=== PATIENT | female | born 1955 | race Caucasian/White ===

== ENCOUNTER 2019-12-07 11:18 | Outpatient (CLI) | payer MEDICARE, SELFPAY ==
--- NOTE | 2019-12-07 11:24 | XRR_ITS ---
PROCEDURE INFORMATION: Exam: XR Right Knee Exam date and time: 12/07/2019 11:25 AM Age: 64 years old Clinical indication: Pain in right knee TECHNIQUE: Imaging protocol: XR Right knee. Views: 3 views. COMPARISON: No relevant prior studies available. FINDINGS: Bones/joints: No fracture. No dislocation. There is narrowing of the patellofemoral joint space with tiny osteophytes projecting off the articular margins of the patella. Small joint effusion. Soft tissues: No acute soft tissue abnormality. XR/XR knee RT 3V* [id number] IMPRESSION: 1. Mild osteoarthritis. 2. Mild joint effusion.
== END 2019-12-07 11:19 | disposition home or self-care (01) ==
LOC: RADWPI 11:23
PROVIDERS: Family Provider Family Medicine; PCP Family Medicine; Visit Provider Family Medicine
DX: M17.11 Unilateral primary osteoarthritis, right knee (principal); M25.461 Effusion, right knee
CPT/HCPCS: 73562

== ENCOUNTER → 2020-03-01 13:23 | Outpatient (BNVA) | payer MEDICARE, SELFPAY | PROVIDERS: Family Provider Family Medicine; PCP Family Medicine; Referring Provider Family Medicine; Visit Provider Specialist | DX: M25.561 Pain in right knee (principal) | CPT/HCPCS: 73560; 73565 ==

== ENCOUNTER 2020-03-19 11:20 | Outpatient (CLI) | payer MEDICARE, SELFPAY ==
--- NOTE | 2020-03-19 11:26 | MM_ITS ---
WS: [id number] BILATERAL SCREENING DIGITAL MAMMOGRAM WITH CAD HISTORY: Screening exam. COMPARISON: 02/10/2019, 02/09/2018, 01/28/2017 Bilateral CC and MLO views submitted. Computer aided detection analyzed. Breast composition: The breasts are heterogeneously dense, which may obscure small masses. No suspici ous masses, microcalcifications or architectural distortion. Dense fibroglandular tissue. New asymmet ry in the lateral mid RIGHT breast measures 8 mm. Not definitely seen on the CC projection due to the dense fibroglandular tissue. MM/[place] [id number] IMPRESSION: BI-RADS: 0-Incomplete: Need additional imaging evaluation FOLLOW UP: Need Additional Imaging RIGHT breast: Spot compression views (CC ). True ML. Ultrasound to follow if ab normality persists.
== END 2020-03-19 11:21 | disposition home or self-care (01) ==
LOC: RADSHAW 11:20
PROVIDERS: PCP Family Medicine; Visit Provider Family Medicine
DX: Z12.31 Encounter for screening mammogram for malignant neoplasm of breast (principal); N64.89 Other specified disorders of breast
CPT/HCPCS: 77067

== ENCOUNTER 2020-03-19 13:32 | Outpatient (CLI) | payer MEDICARE, SELFPAY ==
--- NOTE | 2020-03-19 16:45 | MR_ITS ---
WS: [id number] MRI RIGHT KNEE HISTORY: M25.561 Pain in right knee COMPARISON: 12/07/2019 Anterior cruciate ligament: Normal course of the ACL. There is increased signal and thinning of the p roximal ligament. Posterior cruciate ligament: Intact. Medial collateral ligament: Increased T2 fluid signal on the osseous portion of the ligament. Partial extrusion of the meniscus. No ligament tear. Posterior lateral corner structures: Intact. Medial menisci: Abnormal shape of the posterior horn. Free edge is blunted and there is partial extru lizbet of the meniscus from the joint line. Lateral meniscus: Intact. Normal signal, size and shape. Extensor mechanism: Distal quadriceps tendon and patellar tendons are intact. Fluid and soft tissue: Moderate to large amount of suprapatellar joint fluid. Fluid extends around th e knee joint. Small Montemayor's cyst extends over length of 4 cm. Mixed signal within the dependent porti on of the Montemayor's cyst suggesting probably some loose bodies. Osseous and articular structures: Patellofemoral compartment: Moderate narrowing of patellofemoral joint, greatest involving the latera l facet joint with complete loss of cartilage. Small amount of subchondral edema in the lateral parra lar and femoral condyle. Medial compartment: Moderate narrowing of the medial compartment. Complete loss of cartilage. There a re small marginal osteophytes and partial extrusion of the meniscus from the joint line. Moderate dereje unt of marrow edema in the medial femoral condyle. Lateral compartment: Mild narrowing of the lateral compartment. Thinning of the cartilage. No marrow edema. MR/MR knee RT wo con* [id number] IMPRESSION: 1. Moderate internal derangement medial compartment. Loss of cartilage with ex truded meniscus and marrow edema. Findings consistent with at least moderate os teoarthritis. 2. Moderate patellofemoral joint space arthritis, greatest involving the later al patellofemoral joint. Subchondral edema in the lateral patella and femoral c ondyle. 3. Moderate to large suprapatellar joint effusion and small Montemayor's cyst. 4. Abnormal posterior medial meniscus consistent with meniscal tear and joint extrusion.
== END 2020-03-19 13:33 | disposition home or self-care (01) ==
LOC: RADSHAW 13:34
PROVIDERS: PCP Family Medicine; Visit Provider Specialist
DX: M25.561 Pain in right knee (principal); M23.8X1 Other internal derangements of right knee; M25.461 Effusion, right knee; M71.21 Synovial cyst of popliteal space [Baker], right knee; R60.0 Localized edema
CPT/HCPCS: 73721

== ENCOUNTER 2020-04-02 12:34 | Outpatient (CLI) | payer MEDICARE, SELFPAY ==
--- NOTE | 2020-04-02 13:02 | US_ITS ---
WS: [id number] ADDITIONAL VIEWS RIGHT BREAST RIGHT breast ultrasound, limited HISTORY: ABNORMAL MAMMOGRAM COMPARISON: 03/19/2020, 02/10/2019 and 02/09/2018 Compression views right CC and MLO projection. True ML also submitted. Dense fibroglandular tissue in the anterior breast. Recently described possible nodule in the lateral RIGHT breast is not reidentified. There is no mass or distortion. RIGHT breast ultrasound, limited. Ultrasound directed to the lateral RIGHT breast. There is very dense fibroglandular tissue. No mass i dentified. No distortion. US/US breast RT limited* [id number] IMPRESSION: BI-RADS: 2-Benign FOLLOW-UP: 1 Year Follow-up Return to annual screening mammography. No persistent mass in the lateral RIGHT breast.
== END 2020-04-02 12:35 | disposition home or self-care (01) ==
LOC: RADSHAW 12:36
PROVIDERS: PCP Family Medicine; Visit Provider Family Medicine
DX: R92.8 Other abnormal and inconclusive findings on diagnostic imaging of breast (principal)
CPT/HCPCS: 76642; 77065

== ENCOUNTER → 2020-04-12 13:29 | Outpatient (BNVA) | payer MEDICARE, SELFPAY | PROVIDERS: PCP Family Medicine; Visit Provider Specialist | DX: Z11.59 Encounter for screening for other viral diseases (principal) | CPT/HCPCS: 87635 ==

== ENCOUNTER → 2020-04-18 14:56 | Outpatient (BNVA) | payer MEDICARE, SELFPAY | PROVIDERS: PCP Nurse Practitioner; Visit Provider Specialist | DX: G56.02 Carpal tunnel syndrome, left upper limb (principal) | CPT/HCPCS: 73130 ==

== ENCOUNTER → 2020-04-19 13:41 | Outpatient (BNVA) | payer MEDICARE, SELFPAY | PROVIDERS: PCP Nurse Practitioner; Visit Provider Specialist | DX: Z11.59 Encounter for screening for other viral diseases (principal); G56.02 Carpal tunnel syndrome, left upper limb | CPT/HCPCS: 87635 ==

== ENCOUNTER 2020-04-24 05:34 | Day surgery (SDC) | payer MEDICARE, SELFPAY ==
[2020-04-23 09:02] VITALS: BMI 28.3
[2020-04-24 05:59] VITALS: BP 163/102; PULSE 63; RESP 16; TEMP 36.5; O2SAT 99
[2020-04-24] MEDS: sodium chloride 0.9% 1,000 ML 30 ML IV (06:12)
[2020-04-24] MEDS: CELEcoxib 200 mg Capsule 400 MG PO (06:16)
--- NOTE | 2020-04-24 06:21 | ANES.PREANE2 ---
Pre-Anesthetic Assessment Pre-Anesthetic Assessment: Height/Weight: Height 1.6 m Weight 72.575 kg Temp Pulse Resp BP Pulse Ox 97.7 F 63 16 163/102 99 04/24/20 05:59 04/24/20 05:59 04/24/20 05:59 04/24/20 05:59 04/24/20 05:59 Preop Diagnosis: Left carpal tunnel syndrome Proposed Procedure: Operation Date: 04/24/20 07:00 Proposed Procedures p Carpal Tunnel Release 50092 G56.00(Left) - Jane Adams MD Familial anesthetic complications: PONV Last intake: Intake Last Liquid Date 04/23/20 Last Liquid Time 23:30 Last Solid Date 04/23/20 Last Solid Time 15:00 Social: Social History: Tobacco and No alcohol Exam: Pre-Anes Outpt Exam: alert, oriented x 3, clear to auscultation bilaterally and regular rate & rhythm Airway: Cervical ROM: WNL (neck fusion, somewhat limited extesnions) MP: 1 Dentition: Chipped Pulmonary: Comments: L-sided PE august 2018(unkown etiology) - now off warfarin CV/HEM: CV/HEM: HTN Metabolic: Metabolic: Hyperlipidemia Musc/skel: Musc/skel: Lower Back Pain and OA/DJD Anesthetic Plan: ASA status: 2 Anesthesia: MAC and Regional (specify below) Risk of > 500 ml blood loss (7ml/kg in children): No Meds/Allergies Current Medications: Current Medications Generic Name Dose Route Start Last Admin Trade Name Freq PRN Reason Stop Dose Admin Sodium Chloride 1,000 mls @ 30 ml s/hr 04/24/20 05:45 04/24/20 06:12 Sodium Chloride 0.9% IV 04/25/20 05:44 30 mls/hr .Q24H CUAUHTEMOC Administration PFSH Anesthesia PFSH: Medical History Primary osteoarthritis of right knee Data Anesthesia Cardiac Studies: No Data to Display
[2020-04-24] MEDS: scopolamine 1.5 Patch 1 PATCH TRANSDERMA (06:22)
[2020-04-24] MEDS: vancomycin 1,000 MG in sodium chloride 0.9% 250 ML 250 MG IV (06:24)
--- NOTE | 2020-04-24 06:52 | W.PM.OPSUD ---
Surgery/Procedure H&P Update DATE OF PROCEDURE: April 24, 2020 DATE H&P PERFORMED: 04/18/20 H&P UPDATE INFORMATION: I have reviewed H&P completed within last 30 days, I have examined patient prior to procedure, No changes to prior documentation and H&P is in [facility] EMR on date indicated PREOP DIAGNOSIS: Left carpal tunnel syndrome PLANNED PROCEDURE: Operation Date: 04/24/20 07:00 Proposed Procedures p Carpal Tunnel Release 26571 G56.00(Left) - Jane Adams MD Related Problem List Diagnoses (1) Carpal tunnel syndrome, left upper limb:
[2020-04-24 07:18] LABS: Basophils # 0.1 10^3/uL (0.0-0.1); Eosinophils # 0.4 10^3/uL (0.0-0.8); Eosinophils % 4.8 %; Hematocrit 41.2 % (37.0-47.0); Hemoglobin 13.4 g/dL (11.5-15.3); Lymphocytes # 1.8 10^3/uL (0.8-4.8); Lymphocytes % 21.5 %; Mean Corpuscular HGB Conc 32.5 g/dL (30.0-36.0); Mean Corpuscular Hemoglobin 30.7 pg (28.0-34.0); Mean Corpuscular Volume 94.3 fL (81-99); Mean Platelet Volume 10.5 fL (7.4-10.4); Monocytes # 0.6 10^3/uL (0.2-0.9); Monocytes % 7.2 %; Neutrophils # 5.33 10^3/uL (1.8-7.7); Neutrophils % 65.3 %; Nucleated Red Blood Cells % 0 %; Platelet Count 248 10^3/cmm (130-400); Red Blood Count 4.37 10^6/uL (4.1-5.3); White Blood Count 8.2 10^3/uL (4.0-10.0)
[2020-04-24 07:30] LABS: Alanine Aminotransferase 19 U/L (0-33); Alkaline Phosphatase 106 IU/L (35-105); Blood Urea Nitrogen 10 mg/dL (8-23); Calcium 9.1 mg/dL (8.5-10.5); Carbon Dioxide 24 mmol/L (22-29); Chloride 108 mmol/L (98-107); Creatinine Clr Calc Pharmacy 67.8188; Globulin 2.7 g/dL (1.3-4.6); Glomerular Filtration Rate 72.2 mL/min (90-130); Glucose 76 mg/dL (65-115); Osmolality Calculated 292 mOsm/kg (285-295); Sodium 142 mmol/L (136-145); Total Bilirubin 0.2 mg/dL (0.15-1.2); Total Protein 6.7 g/dL (6.6-8.7)
[2020-04-24 07:33] LABS: Anion Gap 13.9 (5-19); Aspartate Amino Transferase 32 U/L (0-32); Potassium 3.9 mmol/L (3.5-5.1)
--- NOTE | 2020-04-24 07:46 | P.OP_ITS ---
Operative Report Date of procedure: April 24, 2020 Pre-op Diagnosis: Left carpal tunnel syndrome Post-op diagnosis: same Post-op Findings: Compression across the median nerve Procedure Done: Left carpal tunnel release Pathology: none sent Surgeon: Jane Adams Clock Mechanic: None Anesthesia: MAC (With [place] block) Estimated blood loss (mL): 5 Tourniquet time (min): 31 Tourniquet time: At 250 mmHg ([place] block) IV fluids (mL): 600 Urine output (mL): 0 Complications: None Condition: stable Disposition: same day Brief History: This 64-year-old woman presented with complaints of carpal tunnel syndrome. She wished to proceed with carpal tunnel release after discussion of risks, complications, benefits, and other options. Procedure: The patient was brought to the operating theater. The patient had a [place] block with MAC. The tourniquet was elevated to 250 mmHg for a total tourniquet time of 31 minutes. The patient was also given vancomycin 1 g preoperatively. The arm was then prepped and draped with DuraPrep in usual fashion with the arm draped free. A surgical pause was performed. At the time, the surgical pause, we confirmed the site and side of surgery. We also confirmed the patient's identity, appropriate and timely administration of preoperative antibiotics and preoperative surgical markings. An incision was then made along the thenar crease. The incision crossed the wrist joint in a curvilinear fashion. Dissection continued through skin and soft tissues using a scalpel. The palmaris longus was identified along with the transverse carpal ligament. Each of these was released carefully to avoid injury to the median nerve. We were able to dissect gently into the carpal canal which was noted to be quite tight with significant compression across the median nerve. The nerve was visualized and was an hourglass shape. The canal was subsequently palpated to assure there was no bony encroachment upon the canal. T here was a quite thickened fibrous tissue within the canal, and this was opened longitudinally as well. The canal was then palpated distally and proximally to assure that my small finger was passed easily without impingement. Finding this to be so, attention was directed to closure. The wound was irrigated with ropivacaine plain. It was then closed with 3-0 nylon in an interrupted mattress fashion. Sterile dressing was then placed consisting of Xeroform gauze, fluffed fluffs, sterile soft roll, a volar splint, and an Jayro wrap. The tourniquet was released after 31 minutes. There were no complications. There were no specimens. The procedure was well tolerated. Plan is the patient will be discharged home. Associated Problem List Diagnoses (1) Carpal tunnel syndrome, left upper limb:
[2020-04-24 07:50] VITALS: BP 184/88; PULSE 66; RESP 16; TEMP 36.2; O2SAT 97
--- NOTE | 2020-04-24 07:54 | ANE.PACU2 ---
Inpatient post-anesthesia follow up: Airway intact: Yes Vital signs: Temperature 97.7 F Pulse Rate 63 Respiratory Rate 16 Blood Pressure 163/102 Pulse Oximetry 99 Oxygen Delivery Me thod Room Air Oxygen Flow Rate Fraction of Inspir ed Oxygen Hydration adequate: Yes Nausea and vomiting: No Pain level: 1 Mental status: Baseline
[2020-04-24 08:05] VITALS: BP 179/82; PULSE 64; RESP 16; TEMP 36.6; O2SAT 98
== END 2020-04-24 08:20 | disposition home or self-care (01) ==
PROVIDERS: PCP Nurse Practitioner; Visit Provider Specialist
PROC: (CPT 64721; principal; 2020-04-24 07:00)
DX: G56.02 Carpal tunnel syndrome, left upper limb (principal); I10 Essential (primary) hypertension; E78.5 Hyperlipidemia, unspecified; M17.11 Unilateral primary osteoarthritis, right knee
CPT/HCPCS: 64721; 12345; 36415; 80053; 85025; 96365; J0131; J2250; J2704; J3370; J3490; J7030; J7050

== ENCOUNTER → 2020-05-11 11:30 | Outpatient (BNVA) | payer MEDICARE, SELFPAY | PROVIDERS: PCP Nurse Practitioner; Visit Provider Specialist | DX: M17.12 Unilateral primary osteoarthritis, left knee (principal) | CPT/HCPCS: 80053; 87081 ==

== ENCOUNTER → 2020-05-17 15:19 | Outpatient (BNVA) | payer MEDICARE, SELFPAY | PROVIDERS: PCP Nurse Practitioner; Visit Provider Specialist | DX: Z11.59 Encounter for screening for other viral diseases (principal); M25.561 Pain in right knee | CPT/HCPCS: 87635 ==

== ENCOUNTER 2020-05-22 15:51 | Observation (INO) | payer MEDICARE, SELFPAY ==
[2020-05-17 12:51] VITALS: BMI 29.2
--- NOTE | 2020-05-17 13:13 | ECG_ITS ---
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 Measurements Intervals [place] Rate: 59 P: 28 ID: [id number] QRS: -1 QRSD: 94 T: -17 QT: 397 QTc: 394 Interpretive Statements SINUS BRADYCARDIA NONSPECIFIC T-WAVE ABNORMALITY No previous ECG available for comparison Electronically Signed On 05-18-2020 20:22:02 SPINNER CONTINUOUS by Nico Perez M.D. [id number]
--- NOTE | 2020-05-17 13:38 | ANES.PREANE2 ---
Pre-Anesthetic Assessment Pre-Anesthetic Assessment: Height/Weight: Height 1.57 m Weight 72.575 kg Preop Diagnosis: Osteoarthritis right knee Proposed Procedure: Operation Date: 05/22/20 10:10 Proposed Procedures p Right Total Knee Arthroplasty 78285 M17.11(Right) - Jane Adams MD Familial anesthetic complications: PONV Social: Social History: Tobacco and No alcohol Exam: Pre-Anes Outpt Exam: alert, oriented x 3, clear to auscultation bilaterally and regular rate & rhythm Airway: Cervical ROM: Other (limited extension and L turn d/t cervical fusion) MP: 2 Dentition: Chipped Pulmonary: Comments: PE in L lung (unkown etiology) - aug 2018, not on warfarin any longer CV/HEM: CV/HEM: HTN Musc/skel: Musc/skel: Lower Back Pain (back injury at age 38 - now has herniated discs, sciatica) and OA/DJD Neuropsych: Neuropsych: Neuropathy Anesthetic Plan: ASA status: 2 Anesthesia: General and Regional (specify below) Risk of > 500 ml blood loss (7ml/kg in children): No PFSH Anesthesia PFSH: Medical History (Updated 05/17/20 @ 12:52 by Jane Adams MD) Primary osteoarthritis of right knee Data Anesthesia Cardiac Studies: No Data to Display
[2020-05-17 13:44] LABS: Basophils # 0.1 10^3/uL (0.0-0.1); Eosinophils # 0.2 10^3/uL (0.0-0.8); Eosinophils % 2.9 %; Hematocrit 44.7 % (37.0-47.0); Hemoglobin 14.5 g/dL (11.5-15.3); Lymphocytes # 1.6 10^3/uL (0.8-4.8); Lymphocytes % 19.2 %; Mean Corpuscular HGB Conc 32.4 g/dL (30.0-36.0); Mean Corpuscular Hemoglobin 30.6 pg (28.0-34.0); Mean Corpuscular Volume 94.3 fL (81-99); Mean Platelet Volume 9.8 fL (7.4-10.4); Monocytes # 0.4 10^3/uL (0.2-0.9); Monocytes % 5.2 %; Neutrophils # 5.87 10^3/uL (1.8-7.7); Neutrophils % 71.5 %; Nucleated Red Blood Cells % 0 %; Platelet Count 247 10^3/cmm (130-400); Red Blood Count 4.74 10^6/uL (4.1-5.3); White Blood Count 8.2 10^3/uL (4.0-10.0)
[2020-05-22] VITALS (15 sets, daily range): BP systolic 127–159; BP diastolic 84–110; PULSE 56–86; RESP 13–18; TEMP 36.2–36.7; O2SAT 91–100
[2020-05-22] MEDS: sodium chloride 0.9% 1,000 ML 30 ML IV (11:33)
[2020-05-22] MEDS: midazolam 1 mg/mL INJ 2 mL 2 MG IVP (11:45)
--- NOTE | 2020-05-22 11:54 | SUR.OPER ---
11:45 Pt placed on director of cardiac cath lab and pulse ox and O2. Right femoral nerve block performed by Mary. Pt tolerated procedure well.
--- NOTE | 2020-05-22 12:01 | P.ANESUD_ITS ---
Pre-Anesthetic Update Pre-Anesthetic Assessment: Date of Surgery/Procedure: 05/22/20 Preop Camila gnosis: Osteoarthritis right knee Proposed Procedure: Operation Date: 05/22/20 12:20 Proposed Procedures p Right Total Knee Arthroplasty 86728 M17.11(Right) - Jane Adams MD Any changes to Pre-Anesthetic Assessment?: No Last Intake: Intake Last Liquid Date 05/21/20 Last Liquid Time 23:00 Last Solid Date 05/21/20 Last Solid Time 18:00 Vitals: Temperature 97.2 F L 05/22/20 10:54 Pulse Rate 59 L 05/22/20 11:44 Respiratory Rate 18 05/22/20 11:44 Blood Pressure 134/91 05/22/20 11:44 Blood Pressure Nathaly n 105 05/22/20 11:44 Pulse Oximetry 100 05/22/20 11:44 Oxygen Delivery Me thod 05/22/20 11:44 Oxygen Flow Rate 2 05/22/20 11:44 Exam: Pre-Anes Outpt Exam: alert, oriented x 3, clear to auscultation bilaterally and regular rate & rhythm Other Pertinent Information: Other Pertinent Information: patient would like to try spinal Cardiac Studies: No Data to Display
--- NOTE | 2020-05-22 12:02 | ANES.PROC ---
Anesthesia Procedures Procedure/Date: 05/22/20 Nerve Block ^: Nerve Block 1: Main Anesthesia: general anesthesia Time Out Performed: Yes Consent: requested by attending/covering physician, from patient, from other, risks and benefits reviewed and patient agrees to proceed Nerve block location: adductor canal (R) Anesthesia monitors applied: pulse oximetry, EKG, BP cuff and oxygen Nerve block position: supine Anesthetic Used: ropivicaine 0.5% and with decadron (4 mg) Amount of anesthesia used (mL): 30 Ultrasound used to: recognize landmarks and visualize and ID femerol nerve Nerve Stimulator Used?: No Interscalene/Femoral BLK: 4 stimuplex 21 g needle used for position and inplane approach, other needle, visualize local anesthetic spread and no vascular puncture identified Injection: neg aspiration of heme Patient Tolerated Procedure: well Complications: none
[2020-05-22] MEDS: CELEcoxib 200 mg Capsule 400 MG PO (12:07)
[2020-05-22] MEDS: vancomycin 1,000 MG in sodium chloride 0.9% 250 ML 250 MG IV (12:25)
--- NOTE | 2020-05-22 12:49 | W.PM.OPSUD ---
Surgery/Procedure H&P Update DATE OF PROCEDURE: May 22, 2020 DATE H&P PERFORMED: 05/21/20 H&P UPDATE INFORMATION: I have reviewed H&P completed within last 30 days, I have examined patient prior to procedure, No changes to prior documentation and H&P is in [facility] EMR on date indicated PREOP DIAGNOSIS: Osteoarthritis right knee PLANNED PROCEDURE: Operation Date: 05/22/20 12:20 Proposed Procedures p Right Total Knee Arthroplasty 90434 M17.11(Right) - Jane Adams MD Related Problem List Diagnoses (1) Primary osteoarthritis of right knee:
[2020-05-22] MEDS: vancomycin 1,000 MG SDV 1000 MG IRRIGATION ×2 (14:56)
[2020-05-22] MEDS: vancomycin 1,000 MG SDV 1000 MG XX (14:57)
--- NOTE | 2020-05-22 16:04 | XR_ITS ---
WS: [id number] Exam: XR knee RT 1-2V [id number] Date/Time of Exam: 05/22/2020 4:33 PM Reason For Exam: Status post total knee arthroplasty A total knee prosthesis has been placed and appears to be in excellent position. Postoperative change s in the adjacent soft tissues. Anterior surgical skin clips are noted. XR/XR knee RT 1-2V [id number] IMPRESSION: 1. Total knee replacement in excellent position.
--- NOTE | 2020-05-22 16:05 | P.OP_ITS ---
Operative Report Date of procedure: May 22, 2020 Pre-op Diagnosis: Osteoarthritis right knee, severe Post-op diagnosis: same Post-op Findings: Severe degenerative osteoarthritis with instability Procedure Done: Right total knee arthroplasty Implants: The Marie total knee system with a size 4 triathlon beaded posterior stabilized femur right, a triathlon titanium tibial component size 3 beaded, a triathlon X3 posterior stabilized tibial bearing insert size 3 x 13 mm and a beaded triathlon titanium asymmetric patella size 29 x 9 mm Specimens removed/disposition: Bone, disposed of Pathology: none sent Surgeon: Jane Adams Motion Picture Camera Lens Technician: [facility] OR technicians Anesthesia: General (ASA 2) Estimated blood loss (mL): 50 Tourniquet time (min): 90 Tourniquet time: At 250 mmHg IV fluids (mL): 1,100 Urine output (mL): 600 Complications: None Findings: Degenerative osteoarthritis with varus deformity and instability both medially and laterally. No evidence of flexion contracture. Condition: stable Disposition: PACU (Then to floor for postoperative rehabilitation and pain management) Brief History: This 65-year-old woman presented with complaints of severe right knee pain. She had difficulties with her daily activities of living. Conservative measures were not effective in relieving her pain and improving her function. She wished to proceed with total knee arthroplasty. Risks and complications were explained and discussed with her. Consents were signed preoperatively and questions were answered. Procedure: The patient was brought to the operating theater, and after undergoing adequate general intubated anesthesia with supplemental regional block, ASA2, the right lower extremity was prepped with Dura-Prep and draped in usual fashion following placement of a tourniquet high on the leg. The leg was then draped free. Following prepping and draping, the leg was exsanguinated, and the tourniquet was elevated to 250 mmHg for a total tourniquet time of 90 minutes. Prior to elevation of the tourniquet, but following exposure of the site of surgery, a surgical pause was performed. At the time of the surgical pause, we confirmed the site and side of surgery. Additionally, we confirmed the appropriate and timely administration of preoperative antibiotics, vancomycin 1 g and transexemic acid 1 g. The availability of equipment was confirmed, and the patient's identity was verbalized as well. Following the surgical pause, an incision was made centering over the patella continuing proximally and distally as necessary to allow access to the knee j oint. Dissection continued through skin and soft tissues using a scalpel. Hemostasis was obtained using electrocautery. The skin incision was followed by a median parapatellar arthrotomy. The leg was extended and the patella was everted. Following this, the leg was returned to flexed position. The distal femur was exposed and a drill hole was made in this for placement of the distal femoral jig. The distal femoral jig was set at 5? of valgus. The distal femoral cutting block was then placed in appropriate position, and an callie wing was used to confirm an appropriate amount of distal femur would be resected. The distal femoral resection was accomplished with 8 mm of bone being resected distally. After the distal femoral resection had been accomplished, the femur was measured and it measured a size 4. Medial lateral dimension also measured a size 4. A size 4 femoral cutting block was placed in position, and we were then able to accomplish the anterior, posterior and chamfer cuts. This jig was then removed and the notch guide was placed in position. With the notch guide in appropriate position, the notch was excised including resection of the anterior and posterior cruciate ligaments. This notch was to allow for the posterior stabilized femoral component. At this point, the femur was prepared and attention was directed to the proximal tibia. The posterior knee retractor was placed along with medial and lateral retractors. Further resection of the menisci was accomplished as we had better visualization. A complete meniscectomy was performed both medially and laterally with care being taken to protect the popliteus. Retractors were then placed so that the proximal tibia was well visualized. A drill hole was then made in the tibia for placement of the intramedullary guide. This guide was placed so that approximately 2 mm of bone would be resected from the deficient medial tibial plateau. The intramedullary guide was utilized supplemented with an extramedullary guide to assure appropriate alignment for the proximal tibial resection. The proximal tibial jig was then evaluated, pinned in position, and the proximal tibial resection was accomplished without difficulty. The jig was removed and the proximal tibia was measured. It measured a size 3. We then attempted a trial reduction with a size 3 by 11 mm insert. The femoral component was placed in position for the trial reduction, and the knee was placed through range of motion. The knee was slightly unbalanced and a medial release was required. Following a medial release, we trialed with a 3 x 13 mm insert. With this, there was excellent stability with excellent varus-valgus alignment with appropriate patellar tracking. This was felt to be the appropriate size insert. There was full extension and flexion without lift off and the rotation of the tibia was marked. Alignment was checked from the hip to the ankle, and this was noted to be appropriate as well. Attention was then directed to the patella. The patella was measured with a caliper. We resected sufficient patella to leave approximately 14 mm of patella remaining. Measurements of the patella then indicated that a size asymmetric 29 mm x 9 mm was the appropriate patellar size. We then placed the jig to drill for the 3 pegs of the press-fit patella, and these drill holes were made without incident. A trial patella was then placed, and the knee was placed through range of motion. The patella was noted to track nicely without evidence of subluxation. The femur was prepared for a press-fit femur by drilling 2 holes for the femoral pegs. All trial components were subsequently removed. The tibial tray was then pinned into position, and we broached the tibia for the stem of the tibial component. Subsequently, 4 drill holes were made for placement of the press-fit tibia. This was accomplished without difficulty. Care was taken to assure appropriate rotation of the tibia as well as appropriate position on the proximal tibia. The tibial tray was completely seated on the proximal tibia. Following broaching, the tibial guide was removed, and all surfaces were copiously irrigated. The surfaces were then dried and a bone plug was placed into the distal femur. Exparel was also injected at this point. The Tritanium tibia was impacted into position. The beaded femur was then impacted into position in a cementless fashion. The tibial insert was placed. The patella was pressed into position with a patellar clamp. The knee was irrigated with 20 mL of Betadine and 500 mL of normal saline, and this was allowed to remain in the knee for 3-4 minutes. The knee was then copiously irrigated and suctioned dry. Attention was then directed to closure. Closure was accomplished with 0 Vicryl in the fascial tissues, 2-0 Monocryl was used in the subcutaneous tissues, and the skin was closed with skin aarti and Exofin. A sterile dressing was then placed consisting of Telfa, 4 x 4's, ABDs, sterile soft roll, and an Jayro wrap. The patient was returned the Recovery Room in a satisfactory condition. X-rays were obtained there. The patient will be discharged to the floor for postoperative rehabilitation and pain management. She'll be under observation status with plans to discharge home with home health. Associated Problem List Diagnoses (1) Primary osteoarthritis of right knee:
--- NOTE | 2020-05-22 16:58 | SUR.PHASEI ---
1635 PT VERY ALERT TALKATIVE PLACED ON 3LNC TO KEEP SATS OVER 94% PT REQUEST FOOD AND DRINK, RT KNEE D/I FIRST ICE IN PLACE, DISTAL FOOT PINK WARM WITH STRONG REGULAR PULSE , YELLOW URINE TO TUBING, PT REPORT CALLED TO FLOOR PT TO FLOOR PER BED AND 2 RNS.
[2020-05-22] MEDS: chlorhexidine gluconate 0.12% Btl 473 mL 30 ML MUCOUS MEM ×2 (17:01→20:48)
[2020-05-22] MEDS: gabapentin 300 mg Capsule 600 MG PO (17:02)
[2020-05-22] MEDS: sennosides-docusate Tablet 2 TAB PO (17:02)
[2020-05-22] MEDS: calcium carbonate 500 mg Chew Tablet 1000 MG PO (17:02)
[2020-05-22] MEDS: oxyCODONE 5 mg IR Tab/Cap PO (17:02)
[2020-05-22] MEDS: iron polysaccharide complex 150 mg Capsule PO (17:02)
--- NOTE | 2020-05-22 19:56 | PM.PACU ---
PACU note Post-Anesthesia Exam: awake and vital signs stable Disposition: admitted
[2020-05-22] MEDS: CELEcoxib 200 mg Capsule PO (20:48)
[2020-05-23] MEDS: TRAMadol 50 mg Tablet PO ×2 (02:10→10:50)
[2020-05-23 02:39] LABS: Basophils % 0.2 %; Hematocrit 40.5 % (37.0-47.0); Hemoglobin 13.2 g/dL (11.5-15.3); Lymphocytes # 0.7 10^3/uL (0.8-4.8); Lymphocytes % 5.2 %; Mean Corpuscular HGB Conc 32.6 g/dL (30.0-36.0); Mean Corpuscular Hemoglobin 30.4 pg (28.0-34.0); Mean Corpuscular Volume 93.3 fL (81-99); Mean Platelet Volume 10.3 fL (7.4-10.4); Monocytes # 0.6 10^3/uL (0.2-0.9); Monocytes % 4.4 %; Neutrophils # 11.68 10^3/uL (1.8-7.7); Neutrophils % 89.6 %; Nucleated Red Blood Cells % 0 %; Platelet Count 218 10^3/cmm (130-400); Red Blood Count 4.34 10^6/uL (4.1-5.3); Red Cell Distribution Width 13.8 % (12.1-15.1)
[2020-05-23 02:55] LABS: Anion Gap 13.9 (5-19); Blood Urea Nitrogen 12 mg/dL (8-23); Carbon Dioxide 22 mmol/L (22-29); Chloride 107 mmol/L (98-107); Creatinine Clr Calc Pharmacy 65.3991; Glucose 145 mg/dL (65-115); Osmolality Calculated 290 mOsm/kg (285-295); Potassium 3.9 mmol/L (3.5-5.1); Sodium 139 mmol/L (136-145)
[2020-05-23 03:51] VITALS: BP 149/96; PULSE 66; RESP 18; TEMP 36.9; O2SAT 94
--- NOTE | 2020-05-23 07:08 | ANE.PACU2 ---
Inpatient post-anesthesia follow up: Airway intact: Yes Vital signs: Temperature 98.4 F Pulse Rate 66 Respiratory Rate 18 Blood Pressure 149/96 Pulse Oximetry 94 Oxygen Delivery Me thod Room Air Oxygen Flow Rate 2 Fraction of Inspir ed Oxygen Hydration adequate: Yes Nausea and vomiting: No Pain level: 3 Mental status: Baseline
[2020-05-23] MEDS: iron polysaccharide complex 150 mg Capsule PO (07:12)
[2020-05-23] MEDS: calcium carbonate 500 mg Chew Tablet 1000 MG PO (07:12)
[2020-05-23] MEDS: aspirin 325 mg EC Tablet PO (07:12)
[2020-05-23] MEDS: sennosides-docusate Tablet 2 TAB PO (07:12)
[2020-05-23] MEDS: CELEcoxib 200 mg Capsule PO (07:13)
[2020-05-23] MEDS: cholecalciferol (vitamin D3) 1,000 unit Tablet 1000 UNIT PO (07:13)
[2020-05-23] MEDS: gabapentin 300 mg Capsule 600 MG PO (07:13)
[2020-05-23] MEDS: multivitamin therapeutic Tablet 1 TAB PO (07:13)
[2020-05-23] MEDS: baclofen 10 mg Tablet 5 MG PO (07:13)
[2020-05-23 07:14] VITALS: RESP 16
[2020-05-23] MEDS: atorvastatin 40 mg Tablet 20 MG PO (07:14)
[2020-05-23] MEDS: oxyCODONE 5 mg IR Tab/Cap PO (07:14)
[2020-05-23] MEDS: topiramate 25 mg Tablet PO (07:14)
[2020-05-23] MEDS: chlorhexidine gluconate 0.12% Btl 473 mL 30 ML MUCOUS MEM (07:15)
[2020-05-23] MEDS: ondansetron 2 mg/ML SDV 2 mL 4 MG IVP (07:18)
[2020-05-23 07:26] VITALS: BP 115/76; PULSE 64; RESP 18; TEMP 37.1; O2SAT 95
--- NOTE | 2020-05-23 11:12 | PM.DCS ---
Discharge Providers Date of Admission: 05/22/20 15:51 Date of Discharge: May 23, 2020 Attending Provider at Admission: Jane Adams MD Attending Provider at Discharge: Jane Adams MD Primary Care Provider: JARRED Brewer Diagnoses at Discharge Discharge Diagnosis (1) Primary osteoarthritis of right knee: Status: Acute Reason for Visit Reason for Visit: right total knee arthroplasty Hospital Course Hospital Course The patient was admitted for same-day surgery yesterday, 1117. She came in overnight under observation status for pain management and initiation of physical therapy. Also, she needed monitoring after total knee arthroplasty. She underwent the following procedure: Right total knee arthroplasty utilizing the Gizmo5 total knee system with a size 4 triathlon beaded posterior stabilized femur right, a triathlon titanium tibial component size 3 beaded, a triathlon X3 posterior stabilized tibial bearing insert size 3 x 13 mm and a beaded triathlon titanium asymmetric patella size 29 x 9 mm. On the first postoperative day, the patient felt ready to be discharged to home. She was comfortable on oral pain medications. Physical therapy felt she was safe for discharge and that she was independent. Therefore, arrangements were made for the patient to be discharged home with home health. Physical Exam Const: COMMON NORMALS: no acute distress, average body habitus, patient oriented x3 and alert GENERAL APPEARANCE: cooperative and comfortable ORIENTATION/CONSCIOUSNESS: Yes awake HENMT: COMMON NORMALS: normocephalic and atraumatic HEAD & SCALP: normocephalic and atraumatic Eye: GENERAL EYE: appearance normal, both eyes and all related structures Chest: COMMONS NORMALS: normal inspection of the chest Resp: COMMON NORMALS: normal respiratory effort EFFORT & INSPECTION: Yes able to speak in complete sentences and Yes symmetric chest movement Extremity: RIGHT LOWER EXTREMITY: Yes knee joint (Dressing is removed. The wound is benign with no drainage. ) Right knee: Yes inspection (There is no evidence of infection.), Yes palpation (There is no tenderness to palpation over the calf. There is minimal tender), Yes neurovascular exam (Intact distally.) and Yes other (Minimal to no swelling.) Neuro: COMMON NORMALS: patient oriented x3 SENSORIUM/ORIENTATION: Yes alert Psych: COMMON NORMALS: mental status grossly normal APPEARANCE: Yes grossly normal ATTITUDE: Yes calm and Yes engaged ATTENTION/CONCENTRATION: Yes attention grossly intact Skin: COMMON NORMALS: no rashes or lesions noted GENERAL SKIN EXAM: no rashes or lesions noted Urinary Catheter Management^: F: Cath Placed During This Visit: yes, but has since been removed by the nurse Reason for Continuing Indwelling Catheter: Decision to DC Catheter Urinary Catheter Date of Insertion: 05/22/20 Urinary Catheter Time of Insertion: 14:10 Date Urinary Catheter Removed: 05/23/20 Time Urinary Catheter Discontinued: 06:00 Discharge Data Data Completed and Pending: Completed Studies During Hospitalization Category Date Time Status XR knee RT 1-2V 7 [id number] Urgent Exams 05/22/20 16:04 Completed Pending at discharge Category Date Time Status Complete Blood Co unt w/Auto AM LABS Lab 05/24/20 04:00 Ordered Complete Blood Co unt w/Auto AM LABS Lab 05/25/20 04:00 Ordered Comprehensive Met abolic Panel Routi ne Lab 05/17/20 13:12 Uncollected Urinalysis Routin e Lab 05/17/20 13:12 Uncollected Labs from last 24 hours 05/23/20 05/23/20 02:08 02:08 WBC 13.0 H RBC 4.34 Hgb 13.2 Hct 40.5 MCV 93.3 MCH 30.4 MCHC 32.6 RDW 13.8 Plt Count 218 MPV 10.3 Neut % (Auto) 89.6 Lymph % (Auto) 5.2 [place] % (Auto) 4.4 Eos % (Auto) 0.0 Baso % (Auto) 0.2 Neut # (Auto) 11.68 H Lymph # (Auto) 0.7 L [place] # (Auto) 0.6 Eos # (Auto) 0.0 Baso # (Auto) 0.0 Nucleated RBC % (a uto) 0 Nucleated RBCs # 0.0 Sodium 139 Potassium 3.9 Chloride 107 Carbon Dioxide 22 Anion Gap 13.9 BUN 12 Creatinine 0.8 GFR Calculation 72.0 L Glucose 145 H Calculated Osmolal ity 290 Calcium 9.0 Vitals: Last Vital Signs Temp 98.7 F 05/23/20 07:26 Pulse 64 05/23/20 07:26 Resp 18 05/23/20 07:26 BP 115/76 05/23/20 07:26 Pulse Ox 95 05/23/20 07:26 Discharge Plan Discharge Patient Disposition: Home Health Service Condition: Stable Prescriptions: New tramadol 50 mg Tablet 50 - 100 mg PO Q4H PRN (Reason: Mild To Moderate Pain) 7 Days Qty: 40 RF: 0 acetaminophen 500 mg Tablet 1,000 mg PO Q8H Qty: 0 RF: 0 aspirin 325 mg Tablet,Delayed Release (Dr/Ec) 325 mg PO DAILY Qty: 0 RF: 0 Continued trazodone 50 mg tablet 50 mg PO DAILY RF: 0 pravastatin 20 mg tablet 20 mg PO DAILY RF: 0 Complete Multivitamin Tablet 1 tab PO DAILY RF: 0 gabapentin 600 mg tablet 600 mg PO BID RF: 0 enalapril maleate 20 mg tablet 20 mg PO BID RF: 0 baclofen 10 mg tablet 5 mg PO DAILY RF: 0 ciprofloxacin HCl 500 mg tablet 500 mg PO BID Qty: 14 RF: 0 topiramate [Topamax] 25 mg Tablet 25 mg PO DAILY RF: 0 Probiotic 3 billion cell Capsule 3,000 mmu cells PO DAILY RF: 0 naproxen sodium [Aleve] 220 mg Capsule 440 mg PO BID PRN (Reason: pain) RF: 0 hydrocodone-acetaminophen [[place]] 5-325 mg tablet 1 tab PO Q4H PRN (Reason: pain) Qty: 40 RF: 0 Discharge Orders: Discharge Order (Routine); Ordered 05/23/20 Ordered By: Jane Adams Other Ambulatory Orders: DME: Miscellaneous (Order) Location: None Selected Ordered By: Jane Adams DME: Walker (Order) Location: None Selected Ordered By: Jane Adams Referrals: [facility] [Outside] [facility] [place] Jane Adams MD [Physician] - 06/08/20 10:30 am (Follow-up with me on June 13 at 11:45 AM. You will have a nurse visit as noted above. ) Discharge Diet: Advance as tolerated and Usual diet Discharge Activity: Increase activity as tolerated, Use walker/crutches as instructed and As per PT/OT instructions Patient Instructions: Acetaminophen (By mouth), Aspirin (By mouth), Tramadol (By mouth), Total Knee Replacement (DC) Activity Restrictions/Additional Instructions: Keep wound covered as needed. May weight-bear as tolerated. Gait training and strengthening with PT. Discharge Attestations Time Spent in Discharge Care*: greater than 30 min Specific Discharge Activities: educating patient, discussing with lead case manager/social workers/dc planners and documenting/other paperwork Quality Metrics Clinical Quality Measures During this hospital stay, did patient experience: None Coding Level of Care Code Acute Electric Motor Repair Supervisor for Raymundog Fwd Diagnoses Primary osteoarthritis of right knee M17.11
[2020-05-23 11:54] VITALS: BP 145/83; PULSE 65; RESP 18; TEMP 36.9; O2SAT 97
--- NOTE | 2020-05-23 13:31 | PC.CHAP ---
Pastoral Care Encounter/Spiritual Assessment Type of Contact [] Declined binder stripper machine visit [] Patient/Family/Request visit [] Outpatient visit [] Follow-up visit [] Physician referral [] Code/Alert [X] Routine visit [] Staff referral [] Actively dying [] Patient sleeping [] Family support [] [] Out of room [] Palliative care [] [] Receiving care in room [] Pre-surgical visit [] Trauma [] Long length of stay [] ICU visit [] Other: Relational/Emotional Strength [] Patient feels connected with others/family/visitors/staff [] Distress [] Loneliness/isolation [] Abandonment Spirituality of Patient [] Person of Adriana [] Attends Hoahaoism of their Adriana [] Believes in Prayer [] Reads Bible or Sikh materials [] There are Spiritual issues to be addressed Director Of Corporate Strategy Interventions [] Prayer [] Active listening [] Non-anxious presence [] Spiritual/emotional support [] Crisis/trauma care [] Spiritual counseling [] Bereavement support [] Provided bereavement packet [] Provided Bible/devotional materials [] Provided toy/stuffed animal, coloring book to patient or family member [] Provided Communion [] Anointing/Kathleen [] Salvation [] Completed spiritual assessment [] Other: Impact on Illness or Injury [] Angry [] Fearful [] Anxious [] Often cries [] Exhaustion [] Unable to work [] Unable to attend sabianism [] Unable to walk/stand [] Unable to read [] Unable to drive [] Unable to eat/drink [] Unable to sleep [] Unable to be with family [] Patient intubated [] Other: Summary Time spent with patient
[2020-05-23 14:28] VITALS: BP 145/83; PULSE 65; RESP 18; TEMP 36.9; O2SAT 97
== END 2020-05-23 14:29 | disposition home or self-care (01) ==
LOC: MEDSURG 15:51
PROVIDERS: Admitting Provider Specialist; PCP Nurse Practitioner; Visit Provider Specialist
PROC: (CPT 27447; principal; 2020-05-22 12:20)
DX: M17.11 Unilateral primary osteoarthritis, right knee (principal); I10 Essential (primary) hypertension; Z86.711 Personal history of pulmonary embolism; Z98.1 Arthrodesis status
CPT/HCPCS: 27447; 12345; 36415; 51702; 64447; 73560; 80048; 85025; 93005; 96360; 96361; 96374; 96375; 97110; 97116; 97161; 97165; 97530; C1776; C9290; G0378; J0131; J1100; J2250; J2405; J2704; J2795; J3010; J3370; J3490; J7030; J7050

== ENCOUNTER 2020-06-02 16:40 | Emergency (ER) | payer MEDICARE, SELFPAY ==
[2020-06-02 16:41] VITALS: BP 146/82; PULSE 74; RESP 16; TEMP 37.2; O2SAT 99; BMI 28.3
--- NOTE | 2020-06-02 17:01 | USR_ITS ---
PROCEDURE INFORMATION: Exam: US Duplex Right Lower Extremity Veins, Limited Exam date and time: 06/02/2020 5:05 PM Age: 65 years old Clinical indication: Swelling (edema) of limb; Lower extremity, right; Prior surgery; Surgery date: <1 month; Surgery type: Right total knee replacement 05-22-20; Additional info: Swelling, post tkr 05/22, h/o pe TECHNIQUE: Imaging protocol: Real-time Duplex ultrasound of the Right Lower Extremity with 2-D henao scale, color Doppler flow and spectral waveform analysis with image documentation. Limited exam was focused on the right lower extremity veins. COMPARISON: No relevant prior studies available. FINDINGS: Right deep veins: Incomplete compression of the right proximal and mid posterior tibial vein which could be secondary to acute to early subacute nonocclusive deep venous thrombosis. Remainder of the deep veins of the right lower extremity without deep venous thrombosis. US/[place] [id number] IMPRESSION: Incomplete compression of the right proximal and mid posterior tibial vein which could be secondary to acute to early subacute nonocclusive deep venous thrombosis.
--- NOTE | 2020-06-02 17:21 | W.ED.EXTPRO ---
Documented by User: Meera Sequeira MD 06/04/20 23:58 HPI - Extremity Problem General: Chief complaint: Extremity Injury, Lower Stated complaint: right knee pain Time Seen by Provider: 06/02/20 16:51 History of Present Illness: HPI Narrative: This patient is a 65-year-old female who presents today with pain, swelling, redness in her right lower extremity. She had a total knee replacement on May [address] Adams here at [facility]. Since then she has been having increasing swelling, redness, pain. She denies fever. She has been taking tramadol for pain but also has hydrocodone which she hates taking. She took one last night because the pain was so bad and it did help somewhat. She is concerned about the redness and swelling. She has a history of pulmonary embolism years ago and was on blood thinners for a short time and then taken off of them. She is not on any blood thinners now after the surgery and is only taking aspirin. She has been talking on the phone with Dr. Adams's nurse and was put on clindamycin yesterday. She tells me she is taking 150 mg twice daily which does not seem like the correct dose so I will double check that. Complaint: extremity pain, extremity swelling, joint swelling and joint pain Onset (ago): day(s) () Pain Consistency: constant Location: right, lower extremity and knee Quality: aching and constant Relieving factors: nothing Exacerbating factors: range of motion, weight bearing, walking and palpation Associated symptoms: Reports no associated symptoms and other (Malaise and weakness); Deny chest pain, fever(s) or rash Context: recent surgery/procedure and history of DVT Review of Systems General: Reports: 10 or more systems reviewed and unremarkable except in HPI and below Const: Denies: fever(s), chills, fatigue or malaise Eyes: Denies: change in vision ENMT: Denies: odynophagia Card: Denies: chest pain or swelling of feet/ankles Resp: Denies: dyspnea, productive cough or non-productive cough GI: Denies: abdominal pain, nausea or vomiting : Denies: flank pain or difficulty voiding Musc: Reports: extremity pain, extremity swelling, joint pain and joint swelling; Denies: neck pain or back pain Skin/Breast: Denies: rash Neuro: Denies: headache(s), numbness in extremities or weakness in extremities Yaw/Lymph: Denies: easy bruising or easy bleeding PFSH ED PFSH: Medical History Primary osteoarthritis of right knee Physical Exam Const: COMMON NORMALS: no acute distress, patient oriented x3, no limitations and alert GENERAL APPEARANCE: cooperative and comfortable HENMT: HEAD & SCALP: normal to inspection FACE & SINUS: normal facial exam Eye: GENERAL EYE: appearance normal, both eyes and all related structures Neck/C-Spine: COMMON NORMALS: supple, no meningeal signs and no JVD Chest: COMMONS NORMALS: normal inspection of the chest Resp: COMMON NORMALS: normal respiratory effort, No use of accessory muscles and clear to auscultation bilaterally AUSCULTATION: clear to auscultation bilaterally Cardio: COMMON NORMALS: no JVD, regular rate, regular rhythm and No murmurs present (Cardio) RATE: regular rate RHYTHM: regular rhythm GI: COMMON NORMALS: Normal to inspection, nondistended, normoactive bowel sounds present, Soft to palpation and non-tender INSPECTION: Yes normal to inspection AUSCULTATION: Yes normoactive bowel sounds PALPATION: Yes Soft to palpation Back/Pelvis: COMMON NORMALS: thoracic and lumbar spine normal to inspection Extremity: NARRATIVE EXTREMITY EXAM: Right knee with an anterior incision and aarti. The incision itself looks good. There is some redness particularly on the lateral aspect wrapping around the side of the knee. The leg is swollen up to the upper thigh. There is definite warmth around the knee joint and above and below. Leg is tender to palpation down into the calf and ankle. Pulses are intact. Neuro: COMMON NORMALS: patient oriented x3, moves all extremities, no focal motor deficits and no sensory deficits noted SENSORIUM/ORIENTATION: Yes alert MENINGEAL SIGNS: Yes no meningeal signs Psych: COMMON NORMALS: mental status grossly normal, cooperative and normal affect Skin: COMMON NORMALS: no rashes or lesions noted and turgor normal GENERAL SKIN EXAM: no rashes or lesions noted and turgor normal Course Vital Signs: Vital signs: Vital Signs Temperature 99.0 F 06/02/20 16:41 Pulse Rate 85 06/02/20 18:54 Respiratory Rate 18 06/02/20 18:54 Blood Pressure 135/85 06/02/20 18:54 Pulse Oximetry 99 06/02/20 18:54 MDM - Extremity (Nontraumatic) Lab Data: Labs: Lab Results 06/02/20 06/02/20 06/02/20 Range/Units 17:22 17:22 17:22 WBC 8.0 (4.0-10.0) 10^3/ uL RBC 3.87 L (4.1-5.3) 10^6/u L Hgb 11.8 (11.5-15.3) g/dL Hct 37.0 (37.0-47.0) % MCV 95.6 (81-99) fL MCH 30.5 (28.0-34.0) pg MCHC 31.9 (30.0-36.0) g/dL RDW 14.1 (12.1-15.1) % Plt Count 428 H (130-400) 10^3/c mm MPV 9.2 (7.4-10.4) fL Neut % (Auto) 67.0 % Lymph % (Auto) 18.7 % [place] % (Auto) 7.7 % Eos % (Auto) 5.1 % Baso % (Auto) 1.0 % Neut # (Auto) 5.38 (1.8-7.7) 10^3/u L Lymph # (Auto) 1.5 (0.8-4.8) 10^3/u L [place] # (Auto) 0.6 (0.2-0.9) 10^3/u L Eos # (Auto) 0.4 (0.0-0.8) 10^3/u L Baso # (Auto) 0.1 (0.0-0.1) 10^3/u L Nucleated RBC % (a uto) 0 % Nucleated RBCs # 0.0 /100WBC PT 12.90 (12.1-14.9) SECO NDS INR 0.95 (0.8-1.2) Sodium 141 (136-145) mmol/L Potassium 3.8 (3.5-5.1) mmol/L Chloride 106 (98-107) mmol/L Carbon Dioxide 27 (22-29) mmol/L Anion Gap 11.8 (5-19) BUN 8 (8-23) mg/dL Creatinine 0.8 (0.5-0.9) mg/dL GFR Calculation 72.0 L (90-130) mL/min Glucose 84 (65-115) mg/dL Calculated Osmolal ity 290 (285-295) mOsm/k g Calcium 9.4 (8.5-10.5) mg/dL Total Bilirubin 0.6 (0.15-1.2) mg/dL AST 20 (0-32) U/L ALT 18 (0-33) U/L Alkaline Phosphata se 102 (35-105) IU/L C-Reactive Protein 35.7 H (0.0-4.9) mg/L Total Protein 6.5 L (6.6-8.7) g/dL Albumin 3.8 (3.5-5.2) g/dL Globulin 2.7 (1.3-4.6) g/dL Procalcitonin 0.02 (0-0.5) ng/mL Discharge Plan Discharge Patient Disposition: Home Clinical Impression: Blood clot in vein Knee pain, right Qualifiers: Chronicity: acute Qualified Code(s): M25.561 - Pain in right knee Condition: Stable Prescriptions: New clindamycin HCl 300 mg capsule 300 mg PO Q8H 7 Days Qty: 21 RF: 0 Eliquis 5 mg tablet 10 mg PO BID 7 Days Qty: 28 RF: 0 No Action trazodone 50 mg tablet 50 mg PO BEDTIME RF: 0 pravastatin 20 mg tablet 20 mg PO DAILY RF: 0 Complete Multivitamin Tablet 1 tab PO DAILY RF: 0 gabapentin 600 mg tablet 600 mg PO BID RF: 0 enalapril maleate 20 mg tablet 20 mg PO BID RF: 0 baclofen 10 mg tablet 2.5 mg PO BEDTIME RF: 0 clindamycin HCl 150 mg capsule 300 mg PO TID 10 Days Qty: 60 RF: 0 tramadol 50 mg Tablet 50 mg PO Q4H PRN (Reason: Pain) RF: 0 aspirin 81 mg Tablet 81 mg PO TID RF: 0 acetaminophen 500 mg tablet 1,000 mg PO Q8H PRN (Reason: Pain) RF: 0 topiramate [Topamax] 25 mg Tablet 25 mg PO BID RF: 0 Probiotic 3 billion cell Capsule 3,000 mmu cells PO DAILY RF: 0 hydrocodone-acetaminophen [[place]] 5-325 mg tablet 1 tab PO Q4H PRN (Reason: pain) Qty: 40 RF: 0 Discharge Orders: Discharge Order (Routine); Ordered 06/02/20 Ordered By: Julia Schwartz Referrals: Beniat Padilla FNP [Primary Care Provider] - Discharge Diet: Advance as tolerated Discharge Activity: Resume usual activity Patient Instructions: Knee Pain (ED) Coding Level of Care Code ED Product Line Manager for Chg Fwd Exam Comprehensive Documented by User: Julia Schwartz MD 06/02/20 18:40 HPI - Extremity Problem General: Chief complaint: Extremity Injury, Lower Stated complaint: right knee pain Time Seen by Provider: 06/02/20 16:51 PFSH ED PFSH: Medical History Primary osteoarthritis of right knee Course Vital Signs: Vital signs: Vital Signs Temperature 99.0 F 06/02/20 16:41 Pulse Rate 85 06/02/20 18:54 Respiratory Rate 18 06/02/20 18:54 Blood Pressure 135/85 06/02/20 18:54 Pulse Oximetry 99 06/02/20 18:54 MDM - Extremity (Nontraumatic) MDM Narrative: Medical decision making narrative: Patient presents here with right knee pain postop. Ultrasound showed superficial clots in her lower leg. We will start her on Eliquis as she had a recent surgery. Patient also has some slight redness of her knee white count here is normal no signs of severe infection. She has no signs of joint infection at this time. Patient was placed on clindamycin but will up the dose to 300 mg 3 times daily. She sees her orthopedic surgeon on Thursday is to return to the ER if worsening. She understands agrees to plan. Lab Data: Labs: Lab Results 06/02/20 06/02/20 06/02/20 Range/Units 17:22 17:22 17:22 WBC 8.0 (4.0-10.0) 10^3/ uL RBC 3.87 L (4.1-5.3) 10^6/u L Hgb 11.8 (11.5-15.3) g/dL Hct 37.0 (37.0-47.0) % MCV 95.6 (81-99) fL MCH 30.5 (28.0-34.0) pg MCHC 31.9 (30.0-36.0) g/dL RDW 14.1 (12.1-15.1) % Plt Count 428 H (130-400) 10^3/c mm MPV 9.2 (7.4-10.4) fL Neut % (Auto) 67.0 % Lymph % (Auto) 18.7 % [place] % (Auto) 7.7 % Eos % (Auto) 5.1 % Baso % (Auto) 1.0 % Neut # (Auto) 5.38 (1.8-7.7) 10^3/u L Lymph # (Auto) 1.5 (0.8-4.8) 10^3/u L [place] # (Auto) 0.6 (0.2-0.9) 10^3/u L Eos # (Auto) 0.4 (0.0-0.8) 10^3/u L Baso # (Auto) 0.1 (0.0-0.1) 10^3/u L Nucleated RBC % (a uto) 0 % Nucleated RBCs # 0.0 /100WBC PT 12.90 (12.1-14.9) SECO NDS INR 0.95 (0.8-1.2) Sodium 141 (136-145) mmol/L Potassium 3.8 (3.5-5.1) mmol/L Chloride 106 (98-107) mmol/L Carbon Dioxide 27 (22-29) mmol/L Anion Gap 11.8 (5-19) BUN 8 (8-23) mg/dL Creatinine 0.8 (0.5-0.9) mg/dL GFR Calculation 72.0 L (90-130) mL/min Glucose 84 (65-115) mg/dL Calculated Osmolal ity 290 (285-295) mOsm/k g Calcium 9.4 (8.5-10.5) mg/dL Total Bilirubin 0.6 (0.15-1.2) mg/dL AST 20 (0-32) U/L ALT 18 (0-33) U/L Alkaline Phosphata se 102 (35-105) IU/L C-Reactive Protein 35.7 H (0.0-4.9) mg/L Total Protein 6.5 L (6.6-8.7) g/dL Albumin 3.8 (3.5-5.2) g/dL Globulin 2.7 (1.3-4.6) g/dL Procalcitonin 0.02 (0-0.5) ng/mL Discharge Plan Discharge Patient Disposition: Home Clinical Impression: Blood clot in vein Knee pain, right Qualifiers: Chronicity: acute Qualified Code(s): M25.561 - Pain in right knee Condition: Stable Prescriptions: New clindamycin HCl 300 mg capsule 300 mg PO Q8H 7 Days Qty: 21 RF: 0 Eliquis 5 mg tablet 10 mg PO BID 7 Days Qty: 28 RF: 0 No Action trazodone 50 mg tablet 50 mg PO BEDTIME RF: 0 pravastatin 20 mg tablet 20 mg PO DAILY RF: 0 Complete Multivitamin Tablet 1 tab PO DAILY RF: 0 gabapentin 600 mg tablet 600 mg PO BID RF: 0 enalapril maleate 20 mg tablet 20 mg PO BID RF: 0 baclofen 10 mg tablet 2.5 mg PO BEDTIME RF: 0 clindamycin HCl 150 mg capsule 300 mg PO TID 10 Days Qty: 60 RF: 0 tramadol 50 mg Tablet 50 mg PO Q4H PRN (Reason: Pain) RF: 0 aspirin 81 mg Tablet 81 mg PO TID RF: 0 acetaminophen 500 mg tablet 1,000 mg PO Q8H PRN (Reason: Pain) RF: 0 topiramate [Topamax] 25 mg Tablet 25 mg PO BID RF: 0 Probiotic 3 billion cell Capsule 3,000 mmu cells PO DAILY RF: 0 hydrocodone-acetaminophen [[place]] 5-325 mg tablet 1 tab PO Q4H PRN (Reason: pain) Qty: 40 RF: 0 Discharge Orders: Discharge Order (Routine); Ordered 06/02/20 Ordered By: Julia Schwartz Referrals: Benita Padilla, WILLOW WORKER [Primary Care Provider] - Discharge Diet: Advance as tolerated Discharge Activity: Resume usual activity Patient Instructions: Knee Pain (ED) Coding Level of Care Code ED Product Line Manager for Pierre Fwd Exam Comprehensive
[2020-06-02] MEDS: ondansetron 2 mg/ML SDV 2 mL 4 MG IVP (17:26)
[2020-06-02] MEDS: ketorolac 30 mg/mL INJ 15 MG IVP (17:27)
[2020-06-02 17:29] VITALS: RESP 20
[2020-06-02] MEDS: HYDROmorphone 1 mg/mL INJ 1 mL 0.5 MG IVP (17:29)
[2020-06-02 17:37] LABS: Basophils # 0.1 10^3/uL (0.0-0.1); Eosinophils # 0.4 10^3/uL (0.0-0.8); Eosinophils % 5.1 %; Hemoglobin 11.8 g/dL (11.5-15.3); Lymphocytes # 1.5 10^3/uL (0.8-4.8); Lymphocytes % 18.7 %; Mean Corpuscular HGB Conc 31.9 g/dL (30.0-36.0); Mean Corpuscular Hemoglobin 30.5 pg (28.0-34.0); Mean Corpuscular Volume 95.6 fL (81-99); Mean Platelet Volume 9.2 fL (7.4-10.4); Monocytes # 0.6 10^3/uL (0.2-0.9); Monocytes % 7.7 %; Neutrophils # 5.38 10^3/uL (1.8-7.7); Nucleated Red Blood Cells % 0 %; Platelet Count 428 10^3/cmm (130-400); Red Blood Count 3.87 10^6/uL (4.1-5.3); Red Cell Distribution Width 14.1 % (12.1-15.1)
[2020-06-02] MEDS: clindamycin 900 MG/50 ML PREMIX 100 MG IV (17:54)
[2020-06-02 18:06] LABS: INR 0.95 (0.8-1.2)
[2020-06-02 18:16] LABS: Alanine Aminotransferase 18 U/L (0-33); Albumin Level 3.8 g/dL (3.5-5.2); Alkaline Phosphatase 102 IU/L (35-105); Anion Gap 11.8 (5-19); Aspartate Amino Transferase 20 U/L (0-32); Blood Urea Nitrogen 8 mg/dL (8-23); C Reactive Protein 35.7 mg/L (0.0-4.9); Calcium 9.4 mg/dL (8.5-10.5); Carbon Dioxide 27 mmol/L (22-29); Chloride 106 mmol/L (98-107); Creatinine Clr Calc Pharmacy 66.9264; Globulin 2.7 g/dL (1.3-4.6); Glucose 84 mg/dL (65-115); Osmolality Calculated 290 mOsm/kg (285-295); Potassium 3.8 mmol/L (3.5-5.1); Sodium 141 mmol/L (136-145); Total Bilirubin 0.6 mg/dL (0.15-1.2); Total Protein 6.5 g/dL (6.6-8.7)
[2020-06-02 18:54] VITALS: BP 135/85; PULSE 85; RESP 18; O2SAT 99
[2020-06-02 23:28] LABS: Procalcitonin 0.02 ng/mL (0-0.5)
== END 2020-06-02 18:55 | disposition home or self-care (01) ==
PROVIDERS: Emergency Medicine; Emergency Provider Emergency Medicine; PCP Nurse Practitioner
DX: M25.561 Pain in right knee (principal); I82.401 Acute embolism and thrombosis of unspecified deep veins of right lower extremity
CPT/HCPCS: 12345; 80053; 84145; 85025; 85610; 86140; 93971; 96365; 96375; 99282; 99283; J1170; J1885; J2405; J3490

== ENCOUNTER 2020-06-05 06:00 | Outpatient (RCR) | payer MEDICARE, SELFPAY | END 2020-07-05 23:59 | disposition home or self-care (01) | LOC: SPT 06:00 | PROVIDERS: PCP Nurse Practitioner; Referring Provider Specialist; Visit Provider Specialist | DX: Z47.1 Aftercare following joint replacement surgery (principal); Z96.651 Presence of right artificial knee joint | CPT/HCPCS: 97110; 97161 ==

== ENCOUNTER → 2020-06-13 11:56 | Outpatient (BNVA) | payer MEDICARE, SELFPAY | PROVIDERS: PCP Nurse Practitioner; Visit Provider Specialist | DX: Z98.890 Other specified postprocedural states (principal) | CPT/HCPCS: 73560; 73565 ==

== ENCOUNTER 2020-07-06 06:00 | Outpatient (RCR) | payer MEDICARE, SELFPAY | END 2020-08-05 23:59 | disposition home or self-care (01) | LOC: SPT 06:00 | PROVIDERS: PCP Nurse Practitioner; Referring Provider Specialist; Visit Provider Specialist | DX: Z47.1 Aftercare following joint replacement surgery (principal); Z96.651 Presence of right artificial knee joint | CPT/HCPCS: 97110; 97112 ==

== ENCOUNTER → 2020-07-11 10:44 | Outpatient (BNVA) | payer MEDICARE, SELFPAY | PROVIDERS: PCP Nurse Practitioner; Visit Provider Specialist | DX: Z47.1 Aftercare following joint replacement surgery (principal); Z96.651 Presence of right artificial knee joint | CPT/HCPCS: 73560; 73565 ==

== ENCOUNTER 2020-08-06 06:00 | Outpatient (RCR) | payer MEDICARE, SELFPAY | END 2020-09-02 23:59 | disposition home or self-care (01) | LOC: SPT 06:00 | PROVIDERS: PCP Nurse Practitioner; Referring Provider Specialist; Visit Provider Specialist | DX: Z47.1 Aftercare following joint replacement surgery (principal); Z96.651 Presence of right artificial knee joint | CPT/HCPCS: 97110 ==

== ENCOUNTER 2020-08-06 10:36 | Emergency (ER) | payer MEDICARE, SELFPAY ==
[2020-08-06 10:48] VITALS: BP 157/98; PULSE 72; RESP 16; TEMP 36.2; O2SAT 99; BMI 27.0
[2020-08-06 10:54] VITALS: BP 157/98; PULSE 73; RESP 16; O2SAT 100
--- NOTE | 2020-08-06 11:16 | W.ED.GENADLT ---
HPI - General Adult General: Chief complaint: Dental/Oral Stated complaint: Tongue/ Neck swollen Time Seen by Provider: 08/06/20 11:04 History of Present Illness: HPI narrative: The patient is a 65-year-old female with past medical history hypertension on enalapril who comes to the ER complaining of tongue and throat swelling. She says it started approximately 2 AM her tongue began to swell and she took a clindamycin around them which she had leftover from a previous prescription. She says the swelling began to get worse and at approximately 8 AM she took another clindamycin and had difficulty swallowing her pills. She says at that time she could not close her mouth. She did not have any Benadryl to take at home. At that time she was having difficulty swallowing her secretions and closing her mouth. She says around that time the swelling began to improve and she thinks the clindamycin has helped her swelling. She is now talking mostly normal and able to handle her secretions. She denies shortness of breath in the ER. She called her nurse practitioner who recommended going straight to the ER as it could be an angioedema event. Looking at her tongue this is likely the case. It is swollen however not severely enough to cause her shortness of breath or difficulty with secretions at this time. Recommended discontinuing her enalapril and adding any JADYN inhibitor to her allergy list. She understands and will do so. She has no lip swelling. She says her neck feels full. She is also on Eliquis for a PE last fall. She has no current issues with this problem and is following her primary care physician Benita Padilla Onset (ago): hour(s) (9) Severity: mild Associated symptoms: Deny chest pain, confusion, dyspnea, headache(s), rash or palpitations Review of Systems General: Reports: 10 or more systems reviewed and unremarkable except in HPI and below Const: Denies: fatigue Eyes: Denies: change in vision, blurry vision or eye redness ENMT: Reports: other (tongue swelling.); Denies: throat pain, swelling of lips/tongue, ear or mastoid pain or nasal congestion Card: Denies: chest pain, palpitations, irregular heart rhythm, edema, dyspnea on exertion or orthopnea Resp: Denies: dyspnea, productive cough or non-productive cough GI: Denies: abdominal pain, diarrhea or GI cramping : Denies: flank pain, difficulty voiding, urinary frequency or urinary urgency Musc: Denies: neck pain, back pain, extremity pain, joint pain, joint redness, limited range of motion or muscle weakness Skin/Breast: Denies: rash, pruritus, erythema, skin pain or skin tenderness Neuro: Denies: headache(s), numbness in extremities, weakness in extremities, sensory changes, difficulty walking, dizziness, confusion or Slurred speech present Psych: Denies: anxiety or depression Endo: Denies: polyuria All/Imm: Denies: urticaria, throat swelling or tongue swelling PFSH ED PFSH: Medical History Primary osteoarthritis of right knee Physical Exam Const: COMMON NORMALS: no acute distress, average body habitus, patient oriented x3, no limitations, healthy appearing, alert and well nourished GENERAL APPEARANCE: cooperative, comfortable, well kempt and well developed ORIENTATION/CONSCIOUSNESS: Yes awake, Yes oriented to person, Yes oriented to place and Yes oriented to time HENMT: COMMON NORMALS: normocephalic, external ears normal and Normal external nose present HEAD & SCALP: normal to inspection and normocephalic NOSE: Normal external nose present EXTERNAL EAR: Yes external ears normal MOUTH: lip normal; tongue not normal THROAT: posterior oropharynx normal OTHER: The patient's tongue is mildly swollen. She is handling her secretions well and not short of breath. No lip swelling. No swelling to her neck of significance seen on exam. Eye: COMMON NORMALS: Equal, round and reactive pupils present and EOMs intact bilaterally GENERAL EYE: appearance normal, both eyes and all related structures PUPIL: Yes Equal, round and reactive pupils present Neck/C-Spine: COMMON NORMALS: full ROM, no lymphadenopathy, no meningeal signs and no JVD GENERAL: Yes normal visual inspection Lymph: LYMPHATIC: no lymphadenopathy noted Chest: COMMONS NORMALS: normal inspection of the chest and normal palpation of entire chest wall Resp: COMMON NORMALS: normal respiratory effort, No retractions, No use of accessory muscles, clear to auscultation bilaterally and percussion normal EFFORT & INSPECTION: Yes able to speak in complete sentences AUSCULTATION: clear to auscultation bilaterally PERCUSSION: percussion normal Cardio: COMMON NORMALS: no JVD, regular rate, regular rhythm, S1 normal heart sound present, S2 normal heart sound present and Peripheral pulses 2+ throughout RATE: regular rate RHYTHM: regular rhythm HEART SOUNDS: S1 normal heart sound present and S2 normal heart sound present PERIPHERAL PULSES: Peripheral pulses 2+ throughout GI: COMMON NORMALS: Normal to inspection, nondistended, normoactive bowel sounds present, Soft to palpation, non-tender and no masses INSPECTION: Yes normal to inspection PALPATION: Yes Soft to palpation : COMMON NORMALS: Yes no CVA tenderness BLADDER/KIDNEY EXAM: Yes no CVA tenderness Back/Pelvis: COMMON NORMALS: no CVA tenderness, thoracic and lumbar spine normal to inspection, no thoracic nor lumbar tenderness and thoraco-lumbar ROM normal Extremity: COMMON NORMALS: normal to inspection, full ROM, capillary refill normal, no joint enlargement and no pedal edema GENERAL: Yes normal exam except as noted Neuro: COMMON NORMALS: patient oriented x3, CN's II-XII intact bilaterally, moves all extremities, no focal motor deficits, no sensory deficits noted and gait normal SENSORIUM/ORIENTATION: Yes alert, Yes oriented to person, Yes oriented to place and Yes oriented to time MENINGEAL SIGNS: Yes no meningeal signs Psych: COMMON NORMALS: mental status grossly normal, Normal thought process present, cooperative, normal affect and speech normal APPEARANCE: Yes well kempt ATTITUDE: Yes calm SPEECH: Yes normal speech THOUGHT PROCESS: Normal thought process present Skin: COMMON NORMALS: no rashes or lesions noted GENERAL SKIN EXAM: no rashes or lesions noted Course Vital Signs: Vital signs: Vital Signs Temperature 97.2 F L 08/06/20 10:48 Pulse Rate 59 L 08/06/20 12:54 Respiratory Rate 16 08/06/20 12:54 Blood Pressure 152/95 08/06/20 12:54 Pulse Oximetry 95 08/06/20 12:54 MDM - General Adult MDM Narrative: Medical decision making narrative: The patient came in with swelling of her tongue likely mild angioedema related to her enalapril. She was given IV dexamethasone and Benadryl with moderate improvement of her symptoms. Discussed she should discontinue this and never be prescribed JADYN inhibitor is again. She understands. Attempted to contact her primary care physician who was unavailable and is not working today. Recommended she call her tomorrow to discuss her blood pressure medications. Throw away the enalapril. Take Benadryl and prednisone as directed. Call 911 with any worsening symptoms Discharge Plan Discharge Patient Disposition: Home Clinical Impression: Angioedema Condition: Stable Prescriptions: New Medrol (Aguilar) 4 mg tablets,dose pack See Rx Instructions PO .COMPLEX Qty: 21 RF: 0 Benadryl 25 mg capsule 25 mg PO Q6H PRN (Reason: tongue swelling) Qty: 30 RF: 0 No Action trazodone 50 mg tablet 25 - 50 mg PO BEDTIME RF: 0 pravastatin 20 mg tablet 20 mg PO QPM RF: 0 Complete Multivitamin Tablet 1 tab PO DAILY RF: 0 enalapril maleate 20 mg tablet 20 mg PO BID RF: 0 Probiotic 3 billion cell Capsule See Rx Instructions .ROUTE .COMPLEX RF: 0 gabapentin 300 mg capsule 600 mg PO BID RF: 0 topiramate 50 mg tablet 50 mg PO QPM RF: 0 Eliquis 5 mg Tablet See Rx Instructions .ROUTE .COMPLEX RF: 0 baclofen 5 mg tablet 5 mg PO BEDTIME RF: 0 Elderberry Gummy 1 cap PO DAILY RF: 0 clindamycin HCl 150 mg capsule 300 mg PO ONCE RF: 0 Discharge Orders: Discharge ED (Routine); Ordered 08/06/20 Ordered By: Emir Rooney Referrals: Benita Padilla, [employer] [Primary Care Provider] - Discharge Diet: Advance as tolerated Discharge Activity: Resume usual activity Patient Instructions: Angioedema (ED) Activity Restrictions/Additional Instructions: You have had some tongue swelling likely related to your enalapril. Please discontinue taking this. I have tried to contact your primary care physician to see about a medication switch however she is not available today. Please call her tomorrow for further instructions. Call 911 with any worsening symptoms including increasing swelling of your tongue, lips, shortness of breath, inability to swallow or any other worrisome symptoms. Take the prednisone pack as directed on the instructions and you may take a Benadryl 25 mg tablet every [address]. [address] while taking this medicine as it makes you drowsy. Coding Level of Care Code ED Scrap Collector for Pierre Fwlobito Exam Comprehensive
[2020-08-06 11:22] VITALS: BP 150/101; PULSE 67; RESP 18; O2SAT 98
--- NOTE | 2020-08-06 11:24 | PC.PHAR ---
pt states she takes care of her own medications-pt states she is getting samples of eliquis from her [facility] office states the chart notes have 5mg bid until october 2020-pt states she only takes 5mg qpm-pt states she took a old rx of clindamycin today
[2020-08-06] MEDS: dexamethasone 10 mg/mL INJ IVP (11:36)
[2020-08-06] MEDS: diphenhydrAMINE 50 mg/mL SDV 1mL IVP (11:36)
[2020-08-06 12:54] VITALS: BP 152/95; PULSE 59; RESP 16; O2SAT 95
[2020-08-06 14:16] VITALS: BP 148/92; PULSE 72; RESP 18; O2SAT 96
== END 2020-08-06 14:17 | disposition home or self-care (01) ==
PROVIDERS: Emergency Provider Family Medicine; PCP Nurse Practitioner
DX: T78.3XXA Angioneurotic edema, initial encounter (principal); Z79.01 Long term (current) use of anticoagulants
CPT/HCPCS: 12345; 96374; 96375; 99282; 99283; J1100; J1200

== ENCOUNTER → 2020-08-15 09:17 | Outpatient (BNVA) | payer MEDICARE, SELFPAY | PROVIDERS: PCP Nurse Practitioner; Referring Provider Nurse Practitioner; Visit Provider Podiatrist Foot & Ankle Surgery | DX: M21.612 Bunion of left foot (principal); M79.672 Pain in left foot | CPT/HCPCS: 73630 ==

== ENCOUNTER 2020-09-03 06:00 | Outpatient (RCR) | payer MEDICARE, SELFPAY | END 2020-10-03 23:59 | disposition home or self-care (01) | LOC: SPT 06:00 | PROVIDERS: PCP Nurse Practitioner; Referring Provider Specialist; Visit Provider Specialist | DX: Z47.1 Aftercare following joint replacement surgery (principal); Z96.651 Presence of right artificial knee joint | CPT/HCPCS: 97110 ==

== ENCOUNTER 2020-09-05 13:12 | Outpatient (CLI) | payer MEDICARE, SELFPAY ==
[2020-09-06] VITALS (9 sets, daily range): BP systolic 118–138; BP diastolic 78–99; PULSE 61–68; RESP 18; TEMP 36.1–36.9; O2SAT 95–100; BMI 30.1
== END 2020-09-05 13:13 ==
PROVIDERS: PCP Nurse Practitioner; Visit Provider Nurse Practitioner
DX: D64.9 Anemia, unspecified (principal)
CPT/HCPCS: 36415; 36430; 86850; 86900; 86920

== ENCOUNTER 2020-09-07 11:53 | Emergency (ER) | payer MEDICARE, SELFPAY ==
[2020-09-07 11:57] VITALS: BP 138/88; PULSE 76; RESP 16; TEMP 36.3; O2SAT 95; BMI 27.1
--- NOTE | 2020-09-07 12:01 | ECG_ITS ---
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 Measurements Intervals [place] Rate: 68 P: 40 MA: 178 QRS: 24 QRSD: 97 T: 20 QT: 392 QTc: 420 Interpretive Statements SINUS RHYTHM Compared to ECG 05/17/2020 13:25:31 Sinus bradycardia no longer present T-wave abnormality no longer present Electronically Signed On 09-07-2020 18:24:03 BAG SHAKER by Nico Perez M.D. [id number]
--- NOTE | 2020-09-07 12:01 | XR_ITS ---
WS: [id number] Portable AP upright chest, 09/07/2020 Clinical Data: weakness Comparison: PA and lateral chest, 11/12/2015. Findings: No nodules, masses or effusions are seen. The heart is normal. The pulmonary vascularity is not increased. No pneumonia or pneumothorax is seen. The aortic arch and descending aorta show tortu osity. There is a dextroscoliosis of the thoracic spine. Monitor leads are on the chest wall. XR/XR chest 1V portable [id number] Impression: Atherosclerosis.
--- NOTE | 2020-09-07 12:06 | CT_ITS ---
WS: [id number] CT HEAD NONCONTRAST HISTORY: worst headache of her life. On anticoagulation TECHNIQUE: Contiguous axial imaging performed through the brain in 2.5 mm imaging. Bone and soft tiss ue windows. Sagittal and coronal reformats reviewed. All CT scans at [facility] use at le ast one of these dose optimization techniques: automated exposure control; mA and/or kV adjustment pe r patient size (includes targeted exams where dose is matched to clinical indication); or iterative r econstruction. DLP: 770.2 mGy.cm COMPARISON: 12/24/2011 No acute intracranial hemorrhage, midline shift or mass effect. No atrophy or prior infarcts or herniation. Mild chronic small vessel ischemic disease. Prior lacuna r perivascular space in the inferior LEFT thalamus. Additional small prior lacunar infarcts which are new since 2012 in the anterior capsules. Ventricles: Normal size with no hydrocephalus. Paranasal sinuses: As visualized are clear. Mastoid air cells: Well pneumatized. Calvarium and scalp: Skull is intact with no soft tissue edema or swelling. CT/CT head wo con* [id number] IMPRESSION: 1. No acute intracranial hemorrhage or edema. 2. Mild progression of chronic microvascular ischemic changes since 2011.
[2020-09-07 12:25] VITALS: BP 138/88; RESP 16; O2SAT 95
[2020-09-07 12:33] LABS: Basophils # 0.1 10^3/uL (0.0-0.1); Basophils % 1.3 %; Eosinophils # 0.2 10^3/uL (0.0-0.8); Eosinophils % 2.2 %; Hematocrit 30.2 % (37.0-47.0); Hemoglobin 9.1 g/dL (11.5-15.3); Lymphocytes # 1.1 10^3/uL (0.8-4.8); Lymphocytes % 15.7 %; Mean Corpuscular HGB Conc 30.1 g/dL (30.0-36.0); Mean Corpuscular Hemoglobin 24.7 pg (28.0-34.0); Mean Corpuscular Volume 81.8 fL (81-99); Mean Platelet Volume 9.9 fL (7.4-10.4); Monocytes # 0.5 10^3/uL (0.2-0.9); Monocytes % 7.3 %; Neutrophils # 5.09 10^3/uL (1.8-7.7); Neutrophils % 73.2 %; Nucleated Red Blood Cells % 0 %; Platelet Count 375 10^3/cmm (130-400); Red Blood Count 3.69 10^6/uL (4.1-5.3); Red Cell Distribution Width 16.4 % (12.1-15.1)
--- NOTE | 2020-09-07 12:52 | CT_ITS ---
WS: [id number] CT ANGIOGRAPHY abdomen and pelvis HISTORY: rectal bleeding, anemia TECHNIQUE: CT angiogram is performed during IV injection. Reformation images reviewed. All CT scans a [facility] use at least one of these dose optimization techniques: automated exposure co ntrol; mA and/or kV adjustment per patient size (includes targeted exams where dose is matched to cli nical indication); or iterative reconstruction. CONTRAST: Omnipaque 350; 95 mL IV. DLP: 687.41 mGy.cm COMPARISON: 11/17/2017 Lung bases are clear. Mild enlargement of the LEFT heart chambers. Small hiatal hernia. Abdominal aorta: Normal size abdominal aorta. There is mild ectasia and atherosclerosis. No aneurysm. Celiac axis and SMA are both patent. No thrombus or filling defects within the mesenteric arteries. Renal arteries are patent. Bilateral accessory renal arteries. Kidneys are perfused normally and diff usely. Inferior mesenteric artery is not visualized. Mild atherosclerosis of the common iliac arterie s. External iliac arteries are patent. No areas of active extravasation or enhancing lesions within t he colon. Stable appearance of the liver. There is a subcapsular cyst in the LEFT lobe. No bile duct dilatation . Gallbladder is negative. Negative pancreas and adrenal glands. There is no free fluid or adenopathy . Diffuse constipation. Moderate LEFT curvature lumbar spine. CT/CT angio abdomen pelvis [id number] IMPRESSION: 1. Mild atherosclerosis aorta with no aneurysm or occlusion. 2. Mesenteric arteries are patent. No enhancing colonic lesion or angiodysplas ia or active contrast extravasation. 3. Mild cardiomegaly.
[2020-09-07 12:58] LABS: Alanine Aminotransferase 9 U/L (0-33); Albumin Level 3.8 g/dL (3.5-5.2); Alkaline Phosphatase 111 IU/L (35-105); Anion Gap 11.5 (5-19); Aspartate Amino Transferase 16 U/L (0-32); Blood Urea Nitrogen 6 mg/dL (8-23); Calcium 8.2 mg/dL (8.5-10.5); Carbon Dioxide 22 mmol/L (22-29); Chloride 110 mmol/L (98-107); Creatinine Clr Calc Pharmacy 65.5208; Globulin 2.3 g/dL (1.3-4.6); Glucose 85 mg/dL (65-115); Osmolality Calculated 287 mOsm/kg (285-295); Potassium 3.5 mmol/L (3.5-5.1); Sodium 140 mmol/L (136-145); Total Bilirubin 0.4 mg/dL (0.15-1.2); Total Protein 6.1 g/dL (6.6-8.7)
[2020-09-07 13:00] LABS: Troponin(5th) Baseline 13 ng/L (0-10)
[2020-09-07 13:03] VITALS: BP 141/92; PULSE 69; RESP 19; O2SAT 99
--- NOTE | 2020-09-07 13:47 | W.ED.DIZZY ---
HPI - Dizziness General: Chief Complaint: Dizziness Stated Complaint: WEAKNESS, DIZZY Time Seen by Provider: 09/07/20 12:04 Source: patient Mode of arrival: ambulatory Limitations: no limitations History of Present Illness: HPI Narrative: Patient is a 65-year-old female with a prior history of PE who is on anticoagulation with Eliquis, she also has hemorrhoids and has frequent rectal bleeds. She presents to the emergency department with a headache, dizziness. Yesterday she had packed red blood cell transfusion due to severe anemia. She said immediately after the transfusion she developed severe headache that has persisted till today. She was at the vet developed sudden onset of dizziness and she felt really unwell so she came in to be evaluated today. She denies any fever, denies syncopal episodes, denies head injury. She has not been evaluated for the hemorrhoids. MD elicited complaint: dizziness Pertinent past history: GI bleed Onset (ago): hour(s) (1) Timing: sudden onset Severity: moderate Description: sense of movement Context: other (transfusion yesterday) Exacerbating factors: nothing Relieving factors: nothing Associated symptoms: Reports headache(s) and nausea; Denies abnormal vaginal bleeding, change in hearing, chest pain, chills, cough, diaphoresis, ear discharge, ear pressure, fevers/chills, malaise, nasal congestion, palpitations, rash, short of breath, syncope, tinnitus or vomiting Associated neuro symptoms: Deny confusion, difficulty speaking, dysphagia, diplopia, extremity weakness, facial numbness, facial weakness, gait changes, numbness in extremities or visual changes Review of Systems General: Reports: 10 or more systems reviewed and unremarkable except in HPI and below Const: Denies: chills, malaise or diaphoresis Eyes: Denies: change in vision or blurry vision ENMT: Denies: ear discharge, change in hearing, tinnitus or nasal congestion Card: Denies: chest pain, palpitations or syncope Resp: Denies: dyspnea, productive cough or non-productive cough GI: Reports: nausea; Denies: vomiting or dysphagia : Denies: flank pain, difficulty voiding, dysuria, urinary frequency, urinary urgency or urinary hesitancy Musc: Denies: neck pain, back pain or extremity swelling Skin/Breast: Denies: rash, pruritus or erythema Neuro: Reports: headache(s); Denies: numbness in extremities or confusion Endo: Denies: polyuria, polydipsia or tired all the time PFSH ED PFSH: Medical History Primary osteoarthritis of right knee Physical Exam Const: COMMON NORMALS: no acute distress, average body habitus, patient oriented x3, no limitations, healthy appearing, alert and well nourished HENMT: COMMON NORMALS: normocephalic, atraumatic and moist oral mucous membranes HEAD & SCALP: normocephalic and atraumatic Eye: COMMON NORMALS: Equal, round and reactive pupils present, EOMs intact bilaterally, conjunctivae normal and no scleral icterus CONJUNCTIVA: Yes conjunctivae normal PUPIL: Yes Equal, round and reactive pupils present Neck/C-Spine: COMMON NORMALS: no meningeal signs and no JVD Resp: COMMON NORMALS: normal respiratory effort, No retractions, No use of accessory muscles, clear to auscultation bilaterally and percussion normal AUSCULTATION: clear to auscultation bilaterally PERCUSSION: percussion normal Cardio: COMMON NORMALS: no JVD, regular rate, regular rhythm, S1 normal heart sound present, S2 normal heart sound present, No gallops present (Cardio), No clicks present (Cardio), No murmurs present (Cardio), No rub (Cardio) and Peripheral pulses 2+ throughout RATE: regular rate RHYTHM: regular rhythm HEART SOUNDS: S1 normal heart sound present and S2 normal heart sound present PERIPHERAL PULSES: Peripheral pulses 2+ throughout GI: COMMON NORMALS: Normal to inspection, nondistended, normoactive bowel sounds present, Soft to palpation, non-tender, No hepatosplenomegaly present, no masses and no bruits PALPATION: Yes Soft to palpation and Yes No hepatosplenomegaly present RECTAL EXAM: External hemorrhoid(s) present (Nonbleeding and nontender) and heme negative stool Extremity: COMMON NORMALS: normal to inspection, full ROM, capillary refill normal, no calf tenderness and no pedal edema Neuro: COMMON NORMALS: patient oriented x3 SENSORIUM/ORIENTATION: Yes alert MENINGEAL SIGNS: Yes no meningeal signs Skin: COMMON NORMALS: no rashes or lesions noted, no wounds, turgor normal, no jaundice, no petechiae and no mottling GENERAL SKIN EXAM: no rashes or lesions noted and turgor normal Course Reevaluation(s): Reevaluation #1: Discussed her lab and imaging findings with her. Unremarkable. Head CT negative, CTA of her abdomen does not reveal any obvious bleeding. Since she has rectal bleeding with every bowel movement she is advised to take stool softeners and a laxative. She does take stool softeners or MiraLAX but she says it is not helping at this time. She has not been set up to see a surgeon for the hemorrhoids. She would prefer to see Dr. Hicks as she has seen him in the past, so we will refer her to Dr. Hicks for evaluation of the hemorrhoids. We will give a prescription for lactulose. She is in agreement with the plan. Her headache has resolved. Time: 15:19 Vital Signs: Vital signs: Vital Signs Temperature 97.3 F L 09/07/20 11:57 Pulse Rate 68 09/07/20 15:48 Respiratory Rate 17 09/07/20 15:48 Blood Pressure 115/79 09/07/20 15:48 Pulse Oximetry 98 09/07/20 15:48 MDM - Dizziness MDM Narrative: Medical decision making narrative: 65-year-old female patient who presents to the emergency department with headache, that she said was the worst headache of her life. Head CT was negative for acute bleeds. She has been anemic and required blood transfusion yesterday due to anemia. She has hemorrhoids that bleed after every bowel movement. Hemoglobin today is 9.1. No acute bleeding on rectal examination, stool guaiac was negative, and CT of her abdomen was unremarkable. She is discharged home and will follow up with Dr. Hicks for management of her hemorrhoids and other evaluation. Medical Records: Attestation: I reviewed the patient's medical records. Lab Data: Attestation: I reviewed the patient's lab results. Labs: Lab Results 09/07/20 09/07/20 09/07/20 Range/Units 12:24 12:24 12:24 WBC 7.0 (4.0-10.0) 10^3/ uL RBC 3.69 L (4.1-5.3) 10^6/u L Hgb 9.1 L (11.5-15.3) g/dL Hct 30.2 L (37.0-47.0) % MCV 81.8 (81-99) fL MCH 24.7 L (28.0-34.0) pg MCHC 30.1 (30.0-36.0) g/dL RDW 16.4 H (12.1-15.1) % Plt Count 375 (130-400) 10^3/c mm MPV 9.9 (7.4-10.4) fL Neut % (Auto) 73.2 % Lymph % (Auto) 15.7 % [place] % (Auto) 7.3 % Eos % (Auto) 2.2 % Baso % (Auto) 1.3 % Neut # (Auto) 5.09 (1.8-7.7) 10^3/u L Lymph # (Auto) 1.1 (0.8-4.8) 10^3/u L [place] # (Auto) 0.5 (0.2-0.9) 10^3/u L Eos # (Auto) 0.2 (0.0-0.8) 10^3/u L Baso # (Auto) 0.1 (0.0-0.1) 10^3/u L Nucleated RBC % (a uto) 0 % Nucleated RBCs # 0.0 /100WBC Sodium 140 (136-145) mmol/L Potassium 3.5 (3.5-5.1) mmol/L Chloride 110 H (98-107) mmol/L Carbon Dioxide 22 (22-29) mmol/L Anion Gap 11.5 (5-19) BUN 6 L (8-23) mg/dL Creatinine 0.7 (0.5-0.9) mg/dL GFR Calculation 84.0 L (90-130) mL/min Glucose 85 (65-115) mg/dL Calculated Osmolal ity 287 (285-295) mOsm/k g Calcium 8.2 L (8.5-10.5) mg/dL Total Bilirubin 0.4 (0.15-1.2) mg/dL AST 16 (0-32) U/L ALT 9 (0-33) U/L Alkaline Phosphata se 111 H (35-105) IU/L Troponin T Baselin e 13 H (0-10) ng/L Troponin T 120 Min [place] (0-10) ng/L Delta Troponin T (0-10) ABS# Total Protein 6.1 L (6.6-8.7) g/dL Albumin 3.8 (3.5-5.2) g/dL Globulin 2.3 (1.3-4.6) g/dL Urine Color (Yellow) Urine Appearance (CLEAR) Urine pH (5-7) Ur Specific Gravit y (1.005-1.030) Urine Protein (Negative) Urine Glucose (UA) (Normal) Urine Ketones (Negative) Urine Blood (Negative) Urine Nitrate (Negative) Urine Bilirubin (Negative) Prot Sulfosalicyli c Acd (Negative) Urine Urobilinogen (Negative) mg/dL Ur Leukocyte [place] ase (Negative) Urine RBC (0-2) /hpf Urine WBC (0-5) /hpf Ur Squamous Epith Cells (0-5) /hpf Amorphous Sediment Urine Bacteria (NONE) /hpf Urine Mucus /hpf 09/07/20 09/07/20 Range/Units 13:15 15:35 WBC (4.0-10.0) 10^3/ uL RBC (4.1-5.3) 10^6/u L Hgb (11.5-15.3) g/dL Hct (37.0-47.0) % MCV (81-99) fL MCH (28.0-34.0) pg MCHC (30.0-36.0) g/dL RDW (12.1-15.1) % Plt Count (130-400) 10^3/c mm MPV (7.4-10.4) fL Neut % (Auto) % Lymph % (Auto) % [place] % (Auto) % Eos % (Auto) % Baso % (Auto) % Neut # (Auto) (1.8-7.7) 10^3/u L Lymph # (Auto) (0.8-4.8) 10^3/u L [place] # (Auto) (0.2-0.9) 10^3/u L Eos # (Auto) (0.0-0.8) 10^3/u L Baso # (Auto) (0.0-0.1) 10^3/u L Nucleated RBC % (a uto) % Nucleated RBCs # /100WBC Sodium (136-145) mmol/L Potassium (3.5-5.1) mmol/L Chloride (98-107) mmol/L Carbon Dioxide (22-29) mmol/L Anion Gap (5-19) BUN (8-23) mg/dL Creatinine (0.5-0.9) mg/dL GFR Calculation (90-130) mL/min Glucose (65-115) mg/dL Calculated Osmolal ity (285-295) mOsm/k g Calcium (8.5-10.5) mg/dL Total Bilirubin (0.15-1.2) mg/dL AST (0-32) U/L ALT (0-33) U/L Alkaline Phosphata se (35-105) IU/L Troponin T Baselin e (0-10) ng/L Troponin T 120 Min [place] 11.33 H (0-10) ng/L Delta Troponin T -1.67 L (0-10) ABS# Total Protein (6.6-8.7) g/dL Albumin (3.5-5.2) g/dL Globulin (1.3-4.6) g/dL Urine Color Straw (Yellow) Urine Appearance Clear (CLEAR) Urine pH 8 H (5-7) Ur Specific Gravit y 1.015 (1.005-1.030) Urine Protein Neg (Negative) Urine Glucose (UA) Norm (Normal) Urine Ketones Negative (Negative) Urine Blood Neg (Negative) Urine Nitrate Negative (Negative) Urine Bilirubin Neg (Negative) Prot Sulfosalicyli c Acd Negative (Negative) Urine Urobilinogen Norm (Negative) mg/dL Ur Leukocyte [place] ase Negative (Negative) Urine RBC None (0-2) /hpf Urine WBC None (0-5) /hpf Ur Squamous Epith Cells 0-4 H (0-5) /hpf Amorphous Sediment Not Reportable Urine Bacteria Trace (NONE) /hpf Urine Mucus Trace /hpf Imaging Data^: CT Abd/Pel: Attestation: I personally reviewed and interpreted this imaging study as follows: Radiologist's impression: [address] [address] [address] Scan Report Signed Patient: Nicole Ashby #: [id number] : 5Acct#:[id number] Age/Sex: 65 / FADM Date: 09/07/20 Loc: ERRoom/Bed: Attending Dr: Ordering Provider/Ordering MD: Galo Castillo MD, [facility] [place] of Service: 09/07/20 Procedure(s): CT angio abdomen pelvis 02853 Accession Number(s): [id number] Report Number: [id number] WS: [id number] CT ANGIOGRAPHY abdomen and pelvis HISTORY: rectal bleeding, anemia TECHNIQUE: CT angiogram is performed during IV injection. Reformation images reviewed. All CT scans at [facility] use at least one of these dose optimization techniques: automated exposure control; mA and/or kV adjustment per patient size (includes targeted exams where dose is matched to clinical indication); or iterative reconstruction. CONTRAST: Omnipaque 350; 95 mL IV. DLP: 687.41 mGy.cm COMPARISON: 11/17/2017 Lung bases are clear. Mild enlargement of the LEFT heart chambers. Small hiatal hernia. Abdominal aorta: Normal size abdominal aorta. There is mild ectasia and atherosclerosis. No aneurysm. Celiac axis and SMA are both patent. No thrombus or filling defects within the mesenteric arteries. Renal arteries are patent. Bilateral accessory renal arteries. Kidneys are perfused normally and diffusely. Inferior mesenteric artery is not visualized. Mild atherosclerosis of the common iliac arteries. External iliac arteries are patent. No areas of active extravasation or enhancing lesions within the colon. Stable appearance of the liver. There is a subcapsular cyst in the LEFT lobe. No bile duct dilatation. Gallbladder is negative. Negative pancreas and adrenal glands. There is no free fluid or adenopathy. Diffuse constipation. Moderate LEFT curvature lumbar spine. CT/CT angio abdomen pelvis 55205 IMPRESSION: 1. Mild atherosclerosis aorta with no aneurysm or occlusion. 2. Mesenteric arteries are patent. No enhancing colonic lesion or angiodysplasia or active contrast extravasation. 3. Mild cardiomegaly. Dictated By:Tiffanie Walker DO Signed By:Tiffanie Walker DOSigned Date/Time:09/07/20 1415 DD/ 1409 CXR: Attestation: I personally reviewed and interpreted this imaging study as follows: Radiologist's impression: [place] [address] [facility] [place] [address] XRay Report Signed Patient: Nicole Ashby #: [id number] : 5Acct#:[id number] Age/Sex: 65 / FADM Date: 09/07/20 Loc: ERRoom/Bed: Attending Dr: Ordering Provider/Ordering MD: Rufino Cardoza Date of Service: 09/07/20 Procedure(s): XR chest 1V portable 72352 Accession Number(s): [id number] Report Number: [id number] WS: [id number] Portable AP upright chest, 09/07/2020 Clinical Data: weakness Comparison: PA and lateral chest, 11/12/2015. Findings: No nodules, masses or effusions are seen. The heart is normal. The pulmonary vascularity is not increased. No pneumonia or pneumothorax is seen. The aortic arch and descending aorta show tortuosity. There is a dextroscoliosis of the thoracic spine. Monitor leads are on the chest wall. XR/XR chest 1V portable 89632 Impression: Atherosclerosis. Dictated By:Love Plascencia MD Signed By:Love Plascencia MDSigned Date/Time:09/07/20 1234 DD/ 1232 CT Head: Attestation: I personally reviewed and interpreted this imaging study as follows: Radiologist's impression: [address] [address] [address] Scan Report Signed Patient: Nicole Ashby #: [id number] : 5Acct#:[id number] Age/Sex: 65 / FADM Date: 09/07/20 Loc: ERRoom/Bed: Attending Dr: Ordering Provider/Ordering MD: Galo Castillo MD, [facility] [place] Date of Service: 09/07/20 Procedure(s): CT head wo con* 73747 Accession Number(s): [id number] Report Number: [id number] WS: [id number] CT HEAD NONCONTRAST HISTORY: worst headache of her life. On anticoagulation TECHNIQUE: Contiguous axial imaging performed through the brain in 2.5 mm imaging. Bone and soft tissue windows. Sagittal and coronal reformats reviewed. All CT scans at [facility] use at least one of these dose optimization techniques: automated exposure control; mA and/or kV adjustment per patient size (includes targeted exams where dose is matched to clinical indication); or iterative reconstruction. DLP: 770.2 mGy.cm COMPARISON: 12/24/2011 No acute intracranial hemorrhage, midline shift or mass effect. No atrophy or prior infarcts or herniation. Mild chronic small vessel ischemic disease. Prior lacunar perivascular space in the inferior LEFT thalamus. Additional small prior lacunar infarcts which are new since 2012 in the anterior capsules. Ventricles: Normal size with no hydrocephalus. Paranasal sinuses: As visualized are clear. Mastoid air cells: Well pneumatized. Calvarium and scalp: Skull is intact with no soft tissue edema or swelling. CT/CT head wo con* 06030 IMPRESSION: 1. No acute intracranial hemorrhage or edema. 2. Mild progression of chronic microvascular ischemic changes since 2011. Dictated By:Tiffanie Walker DO Signed By:Tiffanie Walker DOSigned Date/Time:09/07/20 1240 DD/ 1237 EKG Data^: EKG 1: Attestation: I personally reviewed and interpreted this EKG as follows: EKG interpretation date: 09/07/20 EKG interpretation time: 12:15 Prior EKG tracings: not available for review Interpretation: Normal sinus rhythm. Heart rate 68 bpm. Normal axis. No ST changes. Normal EKG. EKG 2: Attestation: I personally reviewed and interpreted this EKG as follows: EKG interpretation date: 09/07/20 EKG interpretation time: 14:03 Prior EKG tracings: available for review Interpretation: Normal sinus rhythm. Heart rate [address] changes. Normal axis. Unchanged from earlier today. Discharge Plan Discharge Patient Disposition: Home Clinical Impression: Bleeding external hemorrhoids Headache Qualifiers: Headache type: unspecified Headache chronicity pattern: acute headache Intractability: not intractable Qualified Code(s): R51.9 - Headache, unspecified Anemia Qualifiers: Iron deficiency anemia type: chronic blood loss Condition: Stable Prescriptions: New lactulose 10 gram/15 mL (15 mL) solution 20 g PO BID Qty: 600 RF: 0 Continued pravastatin 20 mg tablet 20 mg PO BEDTIME@2200 RF: 0 Complete Multivitamin Tablet 1 tab PO DAILY@0500 RF: 0 felodipine 2.5 mg tablet extended release 24 hr 2.5 mg PO BID@0500,2200 RF: 0 Miralax 17 gram Powder In Packet 17 g PO BID@0500,2200 RF: 0 ferrous sulfate 325 mg (65 mg iron) tablet 325 mg PO BID@0500,2200 RF: 0 Vitamin C 1 tab PO DAILY@0500 RF: 0 Probiotic 3 billion cell Capsule 3 mmu cells PO DAILY@0500 RF: 0 gabapentin 300 mg capsule 300 mg PO BID@0500,2200 RF: 0 topiramate 50 mg tablet 50 mg PO BEDTIME@2200 RF: 0 Eliquis 5 mg Tablet See Rx Instructions .ROUTE .COMPLEX RF: 0 baclofen 5 mg tablet 5 mg PO BEDTIME@2200 RF: 0 Elderberry Gummy 1 cap PO BID@0500,2200 RF: 0 Discharge Orders: Discharge ED (Routine); Ordered 09/07/20 Ordered By: Galo Castillo Referrals: Benita Padilla FNP [Primary Care Provider] - 1-3 days Discharge Diet: Usual diet Discharge Activity: Increase activity as tolerated Patient Instructions: Hemorrhoids (ED), Anemia (ED) Activity Restrictions/Additional Instructions: Return for any new or worsening symptoms. Continue your stool softeners and MiraLAX. Take the lactulose as prescribed for the next 1 to 2 days and when you start to have regular bowel movements he can discontinue the lactulose. You will be contacted to schedule an appointment with Dr. Hicks to evaluate your hemorrhoids and may be obtained a possible colonoscopy. Follow-up with your primary care provider within 3 days. Coding Level of Care Code ED Freight Router for Chg Fwd Exam Comprehensive
[2020-09-07] MEDS: iohexol 350 mg/mL 100 mL Btl IV (13:48)
[2020-09-07 13:57] LABS: Add Urine Culture? No; Bacteria Urine TRACE /hpf; Bilirubin Urine Neg (Negative); Blood Urine Neg (Negative); Glucose Urine UA Norm (Normal); Ketones Urine Negative (Negative); Leukocyte Esterase Urine Negative (Negative); Mucus Urine TRACE /hpf; Nitrate Urine Negative (Negative); Protein Urine Neg (Negative); Specific Gravity, Urine 1.015 (1.005-1.030); Squamous Epithelial Cell Urine 0-4 /hpf (0-5); Sulfosalicylic Acid Urine Negative (Negative); Urine Appearance Clear (CLEAR); Urine Color Straw (Yellow); Urobilinogen Urine Norm (Negative); pH Urine 8 (5-7)
--- NOTE | 2020-09-07 14:01 | ECG_ITS ---
[facility] Test Date: 2020-09-07 Pat Name: Nicole Ashby Department: Room: Gender: Female Primary Care Nurse: : 1955 Requested By: Rufino Cardoza Order Number: [id number] Ahmadi MD: Nico Perez M.D. 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 [id number]
--- NOTE | 2020-09-07 14:08 | PC.NURSE ---
EKG done at 1400 and shown to ER doctor
[2020-09-07] MEDS: diphenhydrAMINE 50 mg/mL SDV 1mL 25 MG IVP (14:15)
[2020-09-07] MEDS: metoclopramide 5 mg/mL SDV 2 mL 10 MG IVP (14:15)
[2020-09-07 14:17] VITALS: BP 117/98; PULSE 67; RESP 17; O2SAT 97
--- NOTE | 2020-09-07 15:21 | DCPLANNER ---
investigation manager was asked to schedule a follow up appointment for patient with general surgery. investigation manager emailed patients information to both Samantha and Naima at [facility] General Surgery. Patients information will be printed and reviewed. Clinic will call patient with appointment information.
[2020-09-07 15:48] VITALS: BP 115/79; PULSE 68; RESP 17; O2SAT 98
[2020-09-07 16:45] LABS: Troponin 5 2HR 11.33 ng/L (0-10)
[2020-09-07 16:46] LABS: Troponin 5 2HR Delta -1.67 ABS# (0-10)
--- NOTE | 2020-09-11 07:37 | DCPLANNER ---
Patient has a follow up appointment scheduled for Monday, September 14, 2020 at 10:[address] Hicks. Clinic will call patient with appointment information.
--- NOTE | 2020-09-20 14:04 | DCPLANNER ---
Patient had a follow up appointment scheduled for 09.14.20 with general surgery with Dr. Hicks - patient did attend appointment.
== END 2020-09-07 15:50 | disposition home or self-care (01) ==
PROVIDERS: Physician Assistant; Emergency Provider Family Medicine; PCP Nurse Practitioner
DX: K64.4 Residual hemorrhoidal skin tags (principal); D50.0 Iron deficiency anemia secondary to blood loss (chronic); R51.9 Headache, unspecified; Z79.01 Long term (current) use of anticoagulants
CPT/HCPCS: 36415; 70450; 71045; 74174; 80053; 81001; 84484; 85025; 93005; 96374; 96375; 99283; J1200; J2765; P9016; Q9967

== ENCOUNTER 2020-09-22 10:42 | Emergency (ER) | payer MEDICARE, SELFPAY ==
[2020-09-22 10:53] VITALS: BP 128/87; PULSE 81; RESP 16; TEMP 36.1; O2SAT 99; BMI 26.9
--- NOTE | 2020-09-22 11:12 | USR_ITS ---
PROCEDURE INFORMATION: Exam: US Duplex Right Lower Extremity Veins, Limited Exam date and time: 09/22/2020 11:12 AM Age: 65 years old Clinical indication: Swelling (edema) of limb; Lower extremity, right; Patient HX: H/o pulmonary embolism; Additional info: Rle swelling, calf tenderness TECHNIQUE: Imaging protocol: Real-time Duplex ultrasound of the Right Lower Extremity with 2-D henao scale, color Doppler flow and spectral waveform analysis with image documentation. Limited exam was focused on the right lower extremity veins. COMPARISON: US ROR venous duplex LE RT 09/17/2020 9:24 AM FINDINGS: Right deep veins: There is hypoechoic occlusive clot within one of the paired posterior tibial veins in the right calf. Otherwise the common femoral, femoral, proximal profundus femoral, popliteal, and visualized calf veins are patent demonstrating normal waveforms, compressibility and/or augmentation response. Right superficial veins: There is focal slightly heterogeneous clot within the greater saphenous vein near the popliteal fossa and lateral upper leg. Soft tissues: There are a few mildly prominent but morphologically normal superficial lymph nodes within the right calf in the area reported pain. No fluid collection. US/[place] [id number] IMPRESSION: 1. Focal DVT right calf within one of the paired right posterior tibial veins. Deep veins otherwise widely patent. 2. Focal superficial clot within the greater saphenous vein near the popliteal fossa.
--- NOTE | 2020-09-22 11:17 | ED_ITS ---
HPI - Extremity Problem General: Chief complaint: Extremity Problem,Nontraumatic Stated complaint: Possible Blood Clot Rt leg Time Seen by Provider: 09/22/20 11:01 Source: patient Mode of arrival: ambulatory Limitations: no limitations History of Present Illness: HPI Narrative: This is a 65-year-old female patient with a history of DVTs who was on Eliquis until recently when she had a GI bleed and severe anemia requiring blood transfusion. She was taken off the Eliquis. Her primary care provider has been monitoring her for signs of a DVT and yesterday she noticed pain and swelling in her left lower extremity with calf pain. She also has pain at the bottom of her foot that is worse on standing. Complaint: extremity pain and extremity swelling Onset (ago): day(s) (1) Pain Consistency: constant Location: right Quality: dull Radiation: distal Relieving factors: nothing Exacerbating factors: weight bearing Associated symptoms: Deny fever(s) or rash Context: history of DVT Review of Systems General: Reports: 10 or more systems reviewed and unremarkable except in HPI and below Const: Denies: fever(s), chills or body aches Eyes: Denies: change in vision or blurry vision ENMT: Denies: throat pain, enlarged tonsils, odynophagia, hoarseness, mouth pain or swelling of lips/tongue Card: Denies: palpitations, irregular heart rhythm, edema or swelling of feet/ankles Resp: Denies: dyspnea, productive cough or non-productive cough GI: Denies: abdominal pain, nausea or vomiting : Denies: flank pain, difficulty voiding, dysuria, urinary frequency, urinary urgency or urinary hesitancy Musc: Reports: extremity pain and extremity swelling; Denies: neck pain or back pain Skin/Breast: Denies: rash, pruritus or erythema Neuro: Denies: headache(s), numbness in extremities or weakness in extremities Endo: Denies: polyuria, polydipsia or tired all the time PFSH ED PFSH: Medical History Primary osteoarthritis of right knee Pulmonary embolism Surgical History History of appendectomy History of carpal tunnel release (~2019) History of colonoscopy (~09/2020) History of hernia repair Right femoral History of lumpectomy of both breasts History of neck surgery History of total right knee replacement (TKR) Family History Denies family history of Anesthesia complication Bleeding disorder Social History Smoking and tobacco status: current every day smoker cigarettes Physical Exam Const: COMMON NORMALS: no acute distress, average body habitus, patient oriented x3, no limitations, healthy appearing, alert and well nourished HENMT: COMMON NORMALS: normocephalic, atraumatic and moist oral mucous membranes HEAD & SCALP: normocephalic and atraumatic Neck/C-Spine: COMMON NORMALS: no JVD Resp: COMMON NORMALS: normal respiratory effort, No retractions, No use of accessory muscles, clear to auscultation bilaterally and percussion normal AUSCULTATION: clear to auscultation bilaterally PERCUSSION: percussion normal Cardio: COMMON NORMALS: no JVD, regular rate, regular rhythm, S1 normal heart sound present, S2 normal heart sound present, No gallops present (Cardio), No clicks present (Cardio), No murmurs present (Cardio), No rub (Cardio) and Peripheral pulses 2+ throughout RATE: regular rate RHYTHM: regular rhythm HEART SOUNDS: S1 normal heart sound present and S2 normal heart sound present PERIPHERAL PULSES: Peripheral pulses 2+ throughout GI: COMMON NORMALS: Normal to inspection, nondistended, normoactive bowel sounds present, Soft to palpation, non-tender, No hepatosplenomegaly present, no masses and no bruits PALPATION: Yes Soft to palpation and Yes No hepatosp lenomegaly present Extremity: COMMON NORMALS: normal to inspection, full ROM, capillary refill normal, no calf tenderness and no pedal edema OTHER: Right lower extremity slightly larger than the left lower extremity. Right calf tenderness. Equivocal Homans' sign. She has tenderness at the bottom of her right heel to palpation. Neuro: COMMON NORMALS: patient oriented x3 SENSORIUM/ORIENTATION: Yes alert Skin: COMMON NORMALS: no rashes or lesions noted, no wounds, turgor normal, no jaundice, no petechiae and no mottling GENERAL SKIN EXAM: no rashes or lesions noted and turgor normal Course Reevaluation(s): Reevaluation #1: Discussed her imaging findings with her. She has a new DVT in her tibial vein. Had a prolonged conversation with her on the risks versus benefits of restarting anticoagulation. She states that she has had a PE before and that was really scary and she would rather restart anticoagulation to prevent PE down to continue to hold because of anemia and blood loss. She states that her primary care provider is regularly checking her hemoglobin and she has an appointment to see her in 2 days. She will restart Eliquis and follow-up with her primary care provider. She know s to return for any signs of bleeding or any concerns. Time: 13:09 Vital Signs: Vital signs: Vital Signs Temperature 96.9 F L 09/22/20 10:53 Pulse Rate 78 09/22/20 13:28 Respiratory Rate 18 09/22/20 13:28 Blood Pressure 128/87 09/22/20 10:53 Pulse Oximetry 100 09/22/20 13:28 MDM - Extremity (Nontraumatic) MDM Narrative: Medical decision making narrative: 65-year-old female patient with a prior history of DVTs and PEs who was previously on Eliquis anticoagulation. However she had a lower GI bleed and required blood transfusion and so her Eliquis was stopped about 3 weeks ago. She noticed swelling and pain in her right calf and so her primary care sent her for an ultrasound. Venous ultrasound was positive for DVT in the right lower extremity. After risks and benefits of anticoagulation versus bleeding was discussed with the patient she opted to restart anticoagulation. She will return for any signs of bleeding. We also discussed exercises and treatment for plantar fasciitis. She opted to use a hard ball like a golf ball to roll under her foot and she has bands she continues to stretch the tendon. Medical Records: Attestation: I reviewed the patient's medical records. Imaging Data^: US Vascular: Attestation: I personally reviewed and interpreted this imaging study as follows: Radiologist's impression: [address] [address] Ultrasound Report Signed with Angelica Patient: Nicole Ashby Ge #: [id number] : 5Acct#:[id number] Age/Sex: 65 / FADM Date: 09/22/20 Loc: ERRoom/Bed: Attending Dr: Ordering Provider/Ordering MD: Galo Castillo MD, [facility] [place] Date of Service: 09/22/20 Procedure(s): [place] [id number] Accession Number(s): [id number] Report Number: [id number] ADDENDUM US/[place] [id number] Addendum: Findings discussed with and acknowledged by GALO Mclean at 09/22/2020 1:12 PM CDT with any questions answered. Addendum Dictated By: Rogers Ortega MD Addendum Signed By: Rogers Ortega MDSigned Date/Time:09/22/20 1314 Addendum Cosigned By: PROCEDURE INFORMATION: Exam: US Duplex Right Lower Extremity Veins, Limited Exam date and time: 09/22/2020 11:12 AM Age: 65 years old Clinical indication: Swelling (edema) of limb; Lower extremity, right; Patient HX: H/o pulmonary embolism; Additional info: Rle swelling, calf tenderness TECHNIQUE: Imaging protocol: Real-time Duplex ultrasound of the Right Lower Extremity with 2-D henao scale, color Doppler flow and spectral waveform analysis with image documentation. Limited exam was focused on the right lower extremity veins. COMPARISON: US ROR venous duplex LE RT 09/17/2020 9:24 AM FINDINGS: Right deep veins: There is hypoechoic occlusive clot within one of the paired posterior tibial veins in the right calf. Otherwise the common femoral, femoral, proximal profundus femoral, popliteal, and visualized calf veins are patent demonstrating normal waveforms, compressibility and/or augmentation response. Right superficial veins: There is focal slightly heterogeneous clot within the greater saphenous vein near the popliteal fossa and lateral upper leg. Soft tissues: There are a few mildly prominent but morphologically normal superficial lymph nodes within the right calf in the area reported pain. No fluid collection. US/[place] [id number] IMPRESSION: 1. Focal DVT right calf within one of the paired right posterior tibial veins. Deep veins otherwise widely patent. 2. Focal superficial clot within the greater saphenous vein near the popliteal fossa. Dictated By:Rogers Ortega MD Signed By:Rogers Ortega MDSigned Date/Time:09/22/20 1301 DD/ 1258 Discharge Plan Discharge Patient Disposition: Home Clinical Impression: Plantar fasciitis of right foot Deep vein thrombosis of lower extremity Qualifiers: Affected thrombotic vein of extremity: tibial Chronicity: acute Laterality: right Qualified Code(s): I82.441 - Acute embolism and thrombosis of right tibial vein Condition: Stable Prescriptions: New Eliquis 5 mg tablet See Rx Instructions .ROUTE .COMPLEX Qty: 74 RF: 0 Continued pravastatin 20 mg tablet 20 mg PO BEDTIME@2200 RF: 0 Complete Multivitamin Tablet 1 tab PO DAILY@0500 RF: 0 felodipine 2.5 mg tablet extended release 24 hr 2.5 mg PO BID@0500,2200 RF: 0 polyethylene glycol 3350 [Miralax] 17 gram Powder In Packet 17 g PO BID@0500,2200 RF: 0 ferrous sulfate 325 mg (65 mg iron) tablet 325 mg PO BID@0500,2200 RF: 0 Vitamin C 1 tab PO DAILY@0500 RF: 0 Probiotic 3 billion cell Capsule 3 mmu cells PO DAILY@0500 RF: 0 gabapentin 300 mg capsule 300 mg PO BID@0500,2200 RF: 0 topiramate 50 mg tablet 50 mg PO BEDTIME@2200 RF: 0 baclofen 5 mg tablet 5 mg PO BEDTIME@2200 RF: 0 Elderberry Gummy 1 cap PO BID@0500,2200 RF: 0 lactulose 10 gram/15 mL (15 mL) solution 20 g PO BID@0500,2200 RF: 0 Tylenol 325 mg Tablet 325 - 650 mg PO Q6H PRN (Reason: PAIN/HEADACHE) RF: 0 Discharge Orders: Discharge ED (Routine); Ordered 09/22/20 Ordered By: Galo Castillo Referrals: Benita Padilla FNP [Primary Care Provider] - 1-3 days Discharge Diet: Usual diet Discharge Activity: Increase activity as tolerated Patient Instructions: Plantar Fasciitis Exercises (GEN), Plantar Fasciitis (ED), Deep Venous Thrombosis (ED) Activity Restrictions/Additional Instructions: Return for any new or worsening symptoms. Follow-up with your primary care provider on Thursday as scheduled. You need to have your hemoglobin levels regularly checked to ensure that you have not started bleeding again. Perform the exercises like we discussed for the plantar fasciitis. 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
[2020-09-22 13:28] VITALS: PULSE 78; RESP 18; O2SAT 100
== END 2020-09-22 13:30 | disposition home or self-care (01) ==
PROVIDERS: Emergency Provider Family Medicine; PCP Nurse Practitioner
DX: M72.2 Plantar fascial fibromatosis (principal); I82.441 Acute embolism and thrombosis of right tibial vein; Z79.01 Long term (current) use of anticoagulants; F17.210 Nicotine dependence, cigarettes, uncomplicated
CPT/HCPCS: 93971; 99282

== ENCOUNTER → 2020-10-26 13:29 | Outpatient (BNVA) | payer MEDICARE, SELFPAY | PROVIDERS: PCP Nurse Practitioner; Visit Provider Surgery | DX: Z01.812 Encounter for preprocedural laboratory examination (principal); Z20.822 Contact with and (suspected) exposure to COVID-19 | CPT/HCPCS: 87635 ==

== ENCOUNTER 2020-10-31 09:26 | Day surgery (SDC) | payer MEDICARE, SELFPAY ==
[2020-10-30 14:14] VITALS: BMI 26.5
[2020-10-31] VITALS (8 sets, daily range): BP systolic 133–173; BP diastolic 91–104; PULSE 60–79; RESP 16–21; TEMP 36.1–36.4; O2SAT 93–99
[2020-10-31] MEDS: sodium chloride 0.9% 1,000 ML 30 ML IV (11:00)
--- NOTE | 2020-10-31 11:02 | ANES.PREANE2 ---
Pre-Anesthetic Assessment Pre-Anesthetic Assessment: Height/Weight: Height 1.6 m Weight 68.039 kg Temp Pulse Resp BP Pulse Ox 97.6 F 70 18 133/93 98 10/31/20 10:15 10/31/20 10:15 10/31/20 10:15 10/31/20 10:15 10/31/20 10:15 Preop Diagnosis: grade 4 hemorrhoids Proposed Procedure: Operation Date: 10/31/20 12:50 Proposed Procedures p Hemorrhoidectomy 89770 k64.3(Not Applicable) - Sami Hicks MD Familial anesthetic complications: None Was Beta Sathya taken within 24 hours: N/A Was Clonidine taken within 24 hours: N/A Last intake: Intake Last Liquid Date 10/30/20 Last Liquid Time 23:00 Last Solid Date 10/30/20 Last Solid Time 18:00 Social: Social History: Tobacco and No alcohol Exam: Pre-Anes Outpt Exam: alert, oriented x 3, clear to auscultation bilaterally and regular rate & rhythm Airway: Cervical ROM: WNL MP: 3 Dentition: Chipped CV/HEM: CV/HEM: DVT and HTN Metabolic: Metabolic: Hyperlipidemia Anesthetic Plan: ASA status: 2 Anesthesia: General Risk of > 500 ml blood loss (7ml/kg in children): No PFSH Anesthesia PFSH: Medical History Anemia Deep vein thrombosis of lower extremity Grade IV hemorrhoids Primary osteoarthritis of right knee Pulmonary embolism Surgical History History of appendectomy History of carpal tunnel release (~2019) History of colonoscopy (~09/2020) History of hernia repair Right femoral History of lumpectomy of both breasts History of neck surgery History of total right knee replacement (TKR) Family History Denies family history of Anesthesia complication Bleeding disorder Social History Smoking and tobacco status: current every day smoker cigarettes Data Anesthesia Cardiac Studies: No Data to Display
--- NOTE | 2020-10-31 11:06 | W.PM.OPSFHP ---
Same Day Surgery H&P Indication for Procedure/HPI DATE OF PROCEDURE: October 31, 2020 CHIEF COMPLAINT/INDICATIONFOR SURGICAL PROCEDURE: Hemorrhoids PREOP DIAGNOSIS: grade 4 hemorrhoids PLANNED PROCEDRUE: Operation Date: 10/31/20 12:50 Proposed Procedures p Hemorrhoidectomy 08983 k64.3(Not Applicable) - Sami Hicks MD Medications/Allergies* Home Medications Medication Instructions Recorded Confirmed Type multivitamin,[id number] 1 tab PO DAILY@0500 02/24/20 10/31/20 History pravastatin 20 mg tablet 20 mg PO BEDTIME@2200 02/24/20 10/31/20 History Probiotic 3 mmu cells PO DAILY@0500 04/23/20 10/31/20 History Elderberry Gummy 1 cap PO BID@0500,2200 08/06/20 10/31/20 History gabapentin 300 mg PO BID@0500,2200 08/06/20 10/31/20 History topiramate 50 mg PO BEDTIME@2200 08/06/20 10/31/20 History felodipine 2.5 mg tablet,extended 2.5 mg PO BID@0500,2200 08/15/20 10/31/20 History release 24 hr Vitamin C 1 tab PO DAILY@0500 09/07/20 10/31/20 History polyethylene glycol 3350 [Miralax] 17 g PO BID@0500,2200 09/07/20 10/31/20 History acetaminophen [Tylenol] 325 - 650 mg PO Q6H PRN 09/22/20 10/31/20 History lactulose 20 g PO BID@0500,2200 09/22/20 10/31/20 History Allergies/Adverse Reactions Allergy/AdvReac Type Severity Reaction Status Date / Time enalapril Allergy Severe ALGY-Swell Verified 10/18/20 10:59 Lip/Tongue/Throat adhesive Allergy rash Verified 10/18/20 10:59 amoxicillin [From Augmentin] Allergy gi upset Verified 10/18/20 10:59 clavulanic acid Allergy gi upset Verified 10/18/20 10:59 [From Augmentin] perfume Allergy ALGY-Hives Verified 10/18/20 10:59 Pertinent History/Comorbid Conditions* Medical History (Updated 10/18/20 @ 11:27 by Forrest Cordon MD) Anemia Deep vein thrombosis of lower extremity Grade IV hemorrhoids Primary osteoarthritis of right knee Pulmonary embolism Surgical History (Updated 09/14/20 @ 11:13 by Sami Hicks MD) History of appendectomy History of carpal tunnel release (~2019) History of colonoscopy (~09/2020) History of hernia repair Right femoral History of lumpectomy of both breasts History of neck surgery History of total right knee replacement (TKR) Family History (Updated 09/14/20 @ 10:44 by Geovanna Redding RN) Denies family history of Anesthesia complication Bleeding disorder Social History Smoking and tobacco status: current every day smoker cigarettes Pertinent Exam Findings alert, oriented x 3 and regular rate & rhythm Hemorrhoids Recommendations Surgery/Procedure today Coding Level of Care Code Acute Inspector Eyeglass Frames for Pierre Rust
[2020-10-31] MEDS: levofloxacin-dextrose 5 % 500 MG/100 ML PREMIX 100 MG IV (11:41)
--- NOTE | 2020-10-31 12:37 | PM.OP ---
Operative Report Date of procedure: October 31, 2020 Pre-op Diagnosis: grade 4 bleeding hemorrhoids Post-op Diagnosis: Grade 4 hemorrhoids right lateral and left anterior location Procedure Done: Hemorrhoidectomy x2 Banding of hemorrhoids Pathology: Hemorrhoidal columns Surgeon: Sami Hicks Anesthesia: General Condition: stable Disposition: PACU Procedure: The patient was taken to the operating room and was placed in the jackknife prone position under general anesthesia. The perianal area was prepped and draped in a sterile manner. Examination under anesthesia revealed grade 4 internal hemorrhoids in the right lateral and left anterior location. 10 cc of saline mixed with 10 cc of Exparel mixed with 10 cc of 0.5% Marcaine was infiltrated for a perianal block. The hemorrhoidal tissue on the left lateral location was grasped with Allis clamps, and using LigaSure the hemorrhoidal tissue was excised staying superficial to the sphincter muscle up to a point superior to the dentate line. The hemorrhoidal tissue on the right lateral location was grasped with Allis clamps, and using LigaSure the hemorrhoidal tissue was excised staying superficial to the sphincter muscle up to a point superior to the dentate line. There was no bleeding noted. The excised specimens were sent to pathology. Banding of the hemorrhoid was performed using a band applicator about the dentate line. A Vaseline gauze was placed in the anal canal and the patient was transferred to recovery room in stable condition.
--- NOTE | 2020-10-31 13:24 | ANE.PACU2 ---
Inpatient post-anesthesia follow up: Airway intact: Yes Vital signs: Temperature 97.6 F Pulse Rate 66 Respiratory Rate 17 Blood Pressure 157/96 Pulse Oximetry 97 Oxygen Delivery Me thod Room Air Oxygen Flow Rate 8 Fraction of Inspir ed Oxygen Hydration adequate: Yes Nausea and vomiting: No Pain level: 1 Mental status: Baseline
[2020-10-31] MEDS: HYDROcodone-acetaminophen 5-325 mg Tablet 1 TAB PO ×2 (13:38)
== END 2020-10-31 14:32 | disposition home or self-care (01) ==
PROVIDERS: PCP Nurse Practitioner; Visit Provider Surgery
PROC: (CPT 46255; principal; 2020-10-31 12:40)
DX: K64.3 Fourth degree hemorrhoids (principal); I10 Essential (primary) hypertension; Z86.718 Personal history of other venous thrombosis and embolism; E78.5 Hyperlipidemia, unspecified; Z86.711 Personal history of pulmonary embolism; F17.210 Nicotine dependence, cigarettes, uncomplicated
CPT/HCPCS: 46255; 88304; C9290; J1100; J1885; J1956; J2405; J2704; J2710; J3010; J3490; J7030

== ENCOUNTER 2020-12-24 13:01 | Observation (INO) | payer MEDICARE, SELFPAY ==
[2020-12-24] VITALS (8 sets, daily range): BP systolic 129–157; BP diastolic 87–99; PULSE 54–69; RESP 15–16; TEMP 36.4–36.6; O2SAT 88–97; BMI 26.7
--- NOTE | 2020-12-24 13:31 | XRR_ITS ---
PROCEDURE INFORMATION: Exam: XR Chest Exam date and time: 12/24/2020 1:31 PM Age: 65 years old Clinical indication: Angina pectoris; Prior surgery; Surgery type: Hernia appy; Patient HX: HX of pulmonary embolism 08/2018, chest pain and tightness started today TECHNIQUE: Imaging protocol: XR of the chest. Views: 1 view. COMPARISON: CR XR chest 1V portable [id number] 09/07/2020 12:04 PM FINDINGS: Lungs: Unremarkable. No consolidation. Pleural spaces: Unremarkable. No pleural effusion. No pneumothorax. Heart/Mediastinum: Unremarkable. No cardiomegaly. Bones/joints: Unremarkable. XR/XR chest 1V portable [id number] IMPRESSION: No acute findings.
--- NOTE | 2020-12-24 13:31 | ECG_ITS ---
[facility] Test Date: 2020-12-24 Pat Name: Nicole Ashby Department: Room: Gender: Female Social Problems Specialist: : 1955 Requested By: Aki Reese Order Number: [id number] Daiana MD: Rosana Das M.D. Measurements Intervals [place] Rate: 60 P: 44 NM: 201 QRS: 5 QRSD: 101 T: 7 QT: 415 QTc: 418 Interpretive Statements SINUS RHYTHM Nonspecific T wave changes Compared to ECG 09/07/2020 14:02:51 No significant changes Electronically Signed On 12-24-2020 18:51:14 CDT by Rosana Das M.D. [id number]
--- NOTE | 2020-12-24 13:53 | W.ED.CHESTPA ---
HPI - Chest Pain General: Chief Complaint: Chest Pain Stated Complaint: SENT BY PCP/CHEST TIGHTNESS, HX OF EMBOLISM Time Seen by Provider: 12/24/20 13:31 History of Present Illness: HPI narrative: 65-year-old female presents emergency room complaining of tightness in her chest she has had this for several days. 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 She denies any known history of coronary artery disease. Patient does have a history of hyperlipidemia she recently was taken off of enalapril due to an allergic reaction and was started on felodipine. complaint: chest pain Pertinent past history: other (History of PE) Onset (ago): day(s) Timing of current episode: episodic Onset: during exertion Pain location: left chest Pain radiation: back, neck and jaw/teeth Severity: moderate Quality: tightness and aching Relieving factors: rest Exacerbating factors: exertion Context: recent surgery Associated symptoms: Deny abdominal pain, diaphoresis, dyspnea, fever(s), leg edema, nausea, palpitations, sense of impending doom, syncope or vomiting Review of Systems Const: Denies: fever(s) or diaphoresis ENMT: Denies: throat pain, ear or mastoid pain, nasal discharge or nasal congestion Card: Denies: palpitations or syncope Resp: Denies: dyspnea GI: Denies: abdominal pain, nausea or vomiting : Denies: flank pain, difficulty voiding, dysuria, urinary frequency or urinary urgency Skin/Breast: Denies: rash or pruritus PFSH ED PFSH: Medical History Anemia Deep vein thrombosis of lower extremity Grade IV hemorrhoids Primary osteoarthritis of right knee Pulmonary embolism Surgical History History of appendectomy History of carpal tunnel release (~2019) History of colonoscopy (~09/2020) History of hernia repair Right femoral History of lumpectomy of both breasts History of neck surgery History of total right knee replacement (TKR) S/P hemorrhoidectomy Family History Brother Pericardial effusion Mother Breast cancer Father Hodgkin's lymphoma Denies family history of Anesthesia complication Bleeding disorder Social History Smoking and tobacco status: current every day smoker cigarettes Alcohol intake: never Substance/Drug Use: never Lives independently: Yes Marital status: Physical Exam Const: COMMON NORMALS: no acute distress GENERAL APPEARANCE: cooperative and comfortable ORIENTATION/CONSCIOUSNESS: Yes awake, Yes oriented to person, Yes oriented to place and Yes oriented to time HENMT: COMMON NORMALS: normocephalic, atraumatic, hearing grossly normal bilaterally and external ears normal HEAD & SCALP: normocephalic and atraumatic EXTERNAL EAR: Yes external ears normal Neck/C-Spine: COMMON NORMALS: no JVD Resp: COMMON NORMALS: normal respiratory effort, No retractions, No use of accessory muscles and clear to auscultation bilaterally AUSCULTATION: clear to auscultation bilaterally Cardio: COMMON NORMALS: no JVD, regular rate, regular rhythm and No murmurs present (Cardio) RATE: regular rate RHYTHM: regular rhythm GI: COMMON NORMALS: Soft to palpation and No hepatosplenomegaly present AUSCULTATION: Yes normoactive bowel sounds PALPATION: Yes Soft to palpation, No Tenderness to palpation present (GI), No Guarding due to palpation present (GI) and Yes No hepatosplenomegaly present Extremity: COMMON NORMALS: normal to inspection, capillary refill normal, no clubbing, cyanosis or edema, no calf tenderness and no pedal edema Neuro: SENSORIUM/ORIENTATION: Yes oriented to person, Yes oriented to place and Yes oriented to time Skin: COMMON NORMALS: no rashes or lesions noted GENERAL SKIN EXAM: no rashes or lesions noted Course Vital Signs: Vital signs: Vital Signs Temperature 97.9 F 12/25/20 04:00 Pulse Rate 70 06/22/21 05:36 Respiratory Rate 12 12/25/20 04:00 Blood Pressure 124/78 12/25/20 04:00 Pulse Oximetry 94 12/25/20 04:00 MDM - Chest Pain MDM Narrative: Medical decision making narrative: With herPatient still having some mild chest pain even after the nitro. She is given morphine will admit her for completion of the rule out and further evaluation. Her symptoms are very concerning on some monitor for PE but she describes basically exertional angina relieved partially by rest there is no acute EKG changes and her troponins do not change. Also discussed with hospitalist orders are written. Lab Data: Labs: Lab Results 12/24/20 12/24/20 12/24/20 Range/Units 14:35 14:40 14:40 WBC 8.2 (4.0-10.0) 10^3/ uL RBC 4.67 (4.1-5.3) 10^6/u L Hgb 13.2 (11.5-15.3) g/dL Hct 42.2 (37.0-47.0) % MCV 90.4 (81-99) fL MCH 28.3 (28.0-34.0) pg MCHC 31.3 (30.0-36.0) g/dL RDW 16.5 H (12.1-15.1) % Plt Count 269 (130-400) 10^3/c mm MPV 9.1 (7.4-10.4) fL Neut % (Auto) 66.2 % Lymph % (Auto) 23.0 % [place] % (Auto) 5.5 % Eos % (Auto) 3.9 % Baso % (Auto) 1.2 % Neut # (Auto) 5.40 (1.8-7.7) 10^3/u L Lymph # (Auto) 1.9 (0.8-4.8) 10^3/u L [place] # (Auto) 0.5 (0.2-0.9) 10^3/u L Eos # (Auto) 0.3 (0.0-0.8) 10^3/u L Baso # (Auto) 0.1 (0.0-0.1) 10^3/u L Nucleated RBC % (a uto) 0 % Nucleated RBCs # 0.0 /100WBC ESR (0-15) mm/hr D-Dimer (0-0.59) ug/mIFE U Sodium 144 (136-145) mmol/L Potassium 4.2 (3.5-5.1) mmol/L Chloride 109 H (98-107) mmol/L Carbon Dioxide 25 (22-29) mmol/L Anion Gap 14.2 (5-19) BUN 8 (8-23) mg/dL Creatinine 0.6 (0.5-0.9) mg/dL GFR Calculation 100.3 (90-130) mL/min Glucose 80 (65-115) mg/dL Calculated Osmolal ity 295 (285-295) mOsm/k g Calcium 8.9 (8.5-10.5) mg/dL Total Bilirubin 0.3 (0.15-1.2) mg/dL AST 26 (0-32) U/L ALT 14 (0-33) U/L Alkaline Phosphata se 110 H (35-105) IU/L Troponin T Baselin e (0-10) ng/L Troponin T 120 Min [place] (0-10) ng/L Delta Troponin T (0-10) ABS# C-Reactive Protein (0.0-4.9) mg/L Total Protein 6.6 (6.6-8.7) g/dL Albumin 4.3 (3.5-5.2) g/dL Globulin 2.3 (1.3-4.6) g/dL Urine Color Colorless (Yellow) Urine Appearance Clear (CLEAR) Urine pH 7 (5-7) Ur Specific Gravit y 1.005 (1.005-1.030) Urine Protein Neg (Negative) Urine Glucose (UA) Norm (Normal) Urine Ketones Negative (Negative) Urine Blood Neg (Negative) Urine Nitrate Negative (Negative) Urine Bilirubin Neg (Negative) Urine Urobilinogen Norm (Negative) mg/dL Ur Leukocyte Vian[place] ase Negative (Negative) 12/24/20 12/24/20 12/24/20 Range/Units 14:40 14:40 15:03 WBC (4.0-10.0) 10^3/ uL RBC (4.1-5.3) 10^6/u L Hgb (11.5-15.3) g/dL Hct (37.0-47.0) % MCV (81-99) fL MCH (28.0-34.0) pg MCHC (30.0-36.0) g/dL RDW (12.1-15.1) % Plt Count (130-400) 10^3/c mm MPV (7.4-10.4) fL Neut % (Auto) % Lymph % (Auto) % [place] % (Auto) % Eos % (Auto) % Baso % (Auto) % Neut # (Auto) (1.8-7.7) 10^3/u L Lymph # (Auto) (0.8-4.8) 10^3/u L [place] # (Auto) (0.2-0.9) 10^3/u L Eos # (Auto) (0.0-0.8) 10^3/u L Baso # (Auto) (0.0-0.1) 10^3/u L Nucleated RBC % (a uto) % Nucleated RBCs # /100WBC ESR 35 H (0-15) mm/hr D-Dimer 1.47 H (0-0.59) ug/mIFE U Sodium (136-145) mmol/L Potassium (3.5-5.1) mmol/L Chloride (98-107) mmol/L Carbon Dioxide (22-29) mmol/L Anion Gap (5-19) BUN (8-23) mg/dL Creatinine (0.5-0.9) mg/dL GFR Calculation (90-130) mL/min Glucose (65-115) mg/dL Calculated Osmolal ity (285-295) mOsm/k g Calcium (8.5-10.5) mg/dL Total Bilirubin (0.15-1.2) mg/dL AST (0-32) U/L ALT (0-33) U/L Alkaline Phosphata se (35-105) IU/L Troponin T Baselin e 11 H (0-10) ng/L Troponin T 120 Min [place] (0-10) ng/L Delta Troponin T (0-10) ABS# C-Reactive Protein (0.0-4.9) mg/L Total Protein (6.6-8.7) g/dL Albumin (3.5-5.2) g/dL Globulin (1.3-4.6) g/dL Urine Color (Yellow) Urine Appearance (CLEAR) Urine pH (5-7) Ur Specific Gravit y (1.005-1.030) Urine Protein (Negative) Urine Glucose (UA) (Normal) Urine Ketones (Negative) Urine Blood (Negative) Urine Nitrate (Negative) Urine Bilirubin (Negative) Urine Urobilinogen (Negative) mg/dL Ur Leukocyte Vian[place] ase (Negative) 12/24/20 12/24/20 Range/Units 17:04 17:04 WBC (4.0-10.0) 10^3/ uL RBC (4.1-5.3) 10^6/u L Hgb (11.5-15.3) g/dL Hct (37.0-47.0) % MCV (81-99) fL MCH (28.0-34.0) pg MCHC (30.0-36.0) g/dL RDW (12.1-15.1) % Plt Count (130-400) 10^3/c mm MPV (7.4-10.4) fL Neut % (Auto) % Lymph % (Auto) % [place] % (Auto) % Eos % (Auto) % Baso % (Auto) % Neut # (Auto) (1.8-7.7) 10^3/u L Lymph # (Auto) (0.8-4.8) 10^3/u L [place] # (Auto) (0.2-0.9) 10^3/u L Eos # (Auto) (0.0-0.8) 10^3/u L Baso # (Auto) (0.0-0.1) 10^3/u L Nucleated RBC % (a uto) % Nucleated RBCs # /100WBC ESR (0-15) mm/hr D-Dimer (0-0.59) ug/mIFE U Sodium (136-145) mmol/L Potassium (3.5-5.1) mmol/L Chloride (98-107) mmol/L Carbon Dioxide (22-29) mmol/L Anion Gap (5-19) BUN (8-23) mg/dL Creatinine (0.5-0.9) mg/dL GFR Calculation (90-130) mL/min Glucose (65-115) mg/dL Calculated Osmolal ity (285-295) mOsm/k g Calcium (8.5-10.5) mg/dL Total Bilirubin (0.15-1.2) mg/dL AST (0-32) U/L ALT (0-33) U/L Alkaline Phosphata se (35-105) IU/L Troponin T Baselin e (0-10) ng/L Troponin T 120 Min [place] 10.42 H (0-10) ng/L Delta Troponin T -0.58 L (0-10) ABS# C-Reactive Protein 7.5 H (0.0-4.9) mg/L Total Protein (6.6-8.7) g/dL Albumin (3.5-5.2) g/dL Globulin (1.3-4.6) g/dL Urine Color (Yellow) Urine Appearance (CLEAR) Urine pH (5-7) Ur Specific Gravit y (1.005-1.030) Urine Protein (Negative) Urine Glucose (UA) (Normal) Urine Ketones (Negative) Urine Blood (Negative) Urine Nitrate (Negative) Urine Bilirubin (Negative) Urine Urobilinogen (Negative) mg/dL Ur Leukocyte Vianey ase (Negative) Discharge Plan Discharge Patient Disposition: Placed in Observation Admit Provider: David Turcios Clinical Impression: Stable angina, History of deep vein thrombosis, History of pulmonary embolus (PE) Discharge Diet: Usual diet Discharge Activity: Limit activity as instructed Coding Level of Care Code ED Safety Associate for Pierre Fwd Exam Comprehensive
[2020-12-24] MEDS: nitroglycerin 1 gm/inch oint Pkt 1 INCH TOPICAL (14:24)
--- NOTE | 2020-12-24 14:29 | CT_ITS ---
WS: [id number] CT CHEST ANGIOGRAPHY WITH REFORMATS HISTORY: hx PE, CHEst pain, dyspnea TECHNIQUE: Contiguous axial images are obtained through the chest during arterial injection of intrav enous contrast. Images are reconstructed to evaluate the pulmonary arteries. MIP imaging also reviewe d. All CT scans at use at least one of these dose optimization techniques: aut omated exposure control; mA and/or kV adjustment per patient size (includes targeted exams where dose is matched to clinical indication); or iterative reconstruction. CONTRAST: Omnipaque 350; 95 mL IV. DLP: 558.45 mGy.cm COMPARISON: None available. Good injection of the pulmonary artery. There are no filling defects in the pulmonary arterial system . There is a nonocclusive thrombus in the RIGHT pulmonary vein. Thoracic aorta is mildly prominent an d ectatic. Heart is enlarged. There is a small pericardial effusion with moderate LEFT heart enlargem ent. There are small mediastinal and hilar lymph nodes. Mild haziness and groundglass attenuation over both lungs probably due to mild fluid overload. No pne umonia or mass. Mild tricuspid regurgitation into the hepatic veins. Increase in thoracic kyphosis. Moderate degenerative disc disease and osteophytosis. CT/CT angio chest PE protcl [id number] IMPRESSION: 1. No pulmonary embolism. 2. Mild interstitial edema. 3. Marked LEFT heart enlargement. Small pericardial effusion. 4. No pneumonia. 5. Mild enlargement of the aorta but no aneurysm.
[2020-12-24 14:45] LABS: Basophils # 0.1 10^3/uL (0.0-0.1); Basophils % 1.2 %; Eosinophils # 0.3 10^3/uL (0.0-0.8); Eosinophils % 3.9 %; Hematocrit 42.2 % (37.0-47.0); Hemoglobin 13.2 g/dL (11.5-15.3); Lymphocytes # 1.9 10^3/uL (0.8-4.8); Mean Corpuscular HGB Conc 31.3 g/dL (30.0-36.0); Mean Corpuscular Hemoglobin 28.3 pg (28.0-34.0); Mean Corpuscular Volume 90.4 fL (81-99); Mean Platelet Volume 9.1 fL (7.4-10.4); Monocytes # 0.5 10^3/uL (0.2-0.9); Monocytes % 5.5 %; Neutrophils % 66.2 %; Nucleated Red Blood Cells % 0 %; Platelet Count 269 10^3/cmm (130-400); Red Blood Count 4.67 10^6/uL (4.1-5.3); Red Cell Distribution Width 16.5 % (12.1-15.1); White Blood Count 8.2 10^3/uL (4.0-10.0)
[2020-12-24 15:05] LABS: Troponin(5th) Baseline 11 ng/L (0-10)
[2020-12-24 15:06] LABS: Alanine Aminotransferase 14 U/L (0-33); Albumin Level 4.3 g/dL (3.5-5.2); Alkaline Phosphatase 110 IU/L (35-105); Anion Gap 14.2 (5-19); Blood Urea Nitrogen 8 mg/dL (8-23); Calcium 8.9 mg/dL (8.5-10.5); Carbon Dioxide 25 mmol/L (22-29); Chloride 109 mmol/L (98-107); Globulin 2.3 g/dL (1.3-4.6); Glomerular Filtration Rate 100.3 mL/min (90-130); Glucose 80 mg/dL (65-115); Osmolality Calculated 295 mOsm/kg (285-295); Potassium 4.2 mmol/L (3.5-5.1); Sodium 144 mmol/L (136-145); Total Bilirubin 0.3 mg/dL (0.15-1.2); Total Protein 6.6 g/dL (6.6-8.7)
[2020-12-24 15:07] LABS: Aspartate Amino Transferase 26 U/L (0-32)
[2020-12-24 15:11] LABS: Add Urine Microscopic? NO; Charge for UA Resulting for Rev
[2020-12-24 15:14] LABS: Bilirubin Urine Neg (Negative); Blood Urine Neg (Negative); Glucose Urine UA Norm (Normal); Ketones Urine Negative (Negative); Leukocyte Esterase Urine Negative (Negative); Nitrate Urine Negative (Negative); Protein Urine Neg (Negative); Specific Gravity, Urine 1.005 (1.005-1.030); Urine Appearance Clear (CLEAR); Urine Color Colorless (Yellow); Urobilinogen Urine Norm (Negative); pH Urine 7 (5-7)
[2020-12-24 15:27] LABS: D Dimer 1.47 ug/mIFEU (0-0.59)
--- NOTE | 2020-12-24 15:31 | ECG_ITS ---
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 Measurements Intervals [place] Rate: 54 P: 40 GA: 199 QRS: 25 QRSD: 100 T: 30 QT: 443 QTc: 420 Interpretive Statements SINUS BRADYCARDIA Nonspecific T wave changes Compared to ECG 09/07/2020 14:02:51 Sinus rhythm no longer present Electronically Signed On 12-24-2020 18:59:35 CDT by Rosana Das M.D. [id number]
[2020-12-24] MEDS: iohexol 350 mg/mL 100 mL Btl IV (15:34)
[2020-12-24 17:27] LABS: Troponin 5 2HR 10.42 ng/L (0-10); Troponin 5 2HR Delta -0.58 ABS# (0-10)
--- NOTE | 2020-12-24 19:31 | ECG_ITS ---
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 Measurements Intervals [place] Rate: 58 P: 52 MD: 196 QRS: 27 QRSD: 99 T: 30 QT: 437 QTc: 430 Interpretive Statements SINUS BRADYCARDIA WARNING: DATA QUALITY MAY AFFECT INTERPRETATION Compared to ECG 09/07/2020 14:02:51 Sinus rhythm no longer present Electronically Signed On 12-24-2020 18:58:45 CDT by Rosana Das M.D. [id number]
[2020-12-24] MEDS: ondansetron 2 mg/ML SDV 2 mL 4 MG IVP (20:11)
--- NOTE | 2020-12-24 20:13 | PC.NURSE ---
Patient received from ED via wheelchair. Patient c/o headache and mild nausea. Medication for nausea administered as ordered. Patient reports chest pain has improved. Telemetry placed. Patient is very pleasant and cooperative. No distress observed at this time.
--- NOTE | 2020-12-24 20:38 | PM.HP ---
Providers/Chief Complaint Admitting Physician: David Turcios Primary Care Provider: JARRED Brewer Chief Complaint: SENT BY PCP/CHEST TIGHTNESS, HX OF EMBOLISM History of Present Illness Pleasant 65-year-old lady presented to ER complaining of chest pain episodes, starting about 2 weeks ago initially radiating up to her neck, currently mid chest, with some radiation across the chest and to her back. Worse when laying down on her back and on the left side. Worse with exertion. With history of DVT for which she takes Eliquis at home, was assessed by CT angiogram without finding of PE. CT angiogram with finding of mild interstitial edema, left heart enlargement small pericardial effusion. No pneumonia. Troponin XI at baseline, 10.42 at 2 hours. EKG with sinus bradycardia. Currently having headache from nitroglycerin, still about 5/10 chest discomfort. Denies any recent viral illness or vaccination. Had not received COVID-19 vaccination. Denies autoimmune condition, but does get morning stiffness. Takes Tylenol for chronic arthritis pain. Reports several tick bites last month. Reports her brother has had recurrent pericarditis and pericardial effusion requiring pericardiocentesis. She is not aware of him having any associated conditions that may explain the recurrent condition. Review of Systems Const: Denies: fever(s), chills, body aches or malaise Eyes: Denies: change in vision or eye redness ENMT: Denies: throat pain, oral sores or ear or mastoid pain Card: Reports: chest pain and dyspnea on exertion; Denies: edema or pre-syncope Resp: Denies: dyspnea, productive cough, change in phlegm color or hemoptysis GI: Denies: abdominal pain, nausea, vomiting, diarrhea, constipation, hematochezia or melena : Denies: flank pain, urinary frequency or hematuria Musc: Denies: back pain, joint swelling or joint redness Skin/Breast: Denies: rash, sores or new lesions Neuro: Denies: headache(s), numbness in extremities, weakness in extremities, dizziness, confusion or seizure-like activity Endo: Denies: polyuria or polydipsia Yaw/Lymph: Denies: easy bleeding or purpura All/Imm: Denies: urticaria, throat swelling or tongue swelling Medications/Allergies Home Medications Medication Instructions Recorded Confirmed Last Taken Type multivitamin,[id number] 1 tab PO DAILY@0500 02/24/20 12/24/20 1 Day Ago History ~10/30/20 pravastatin 20 mg tablet 20 mg PO BEDTIME@2200 02/24/20 12/24/20 12/23/20 History Probiotic 3 mmu cells PO DAILY@0500 04/23/20 12/24/20 12/24/20 History Elderberry Gummy 1 cap PO BID@0500,2200 08/06/20 12/24/20 12/24/20 History gabapentin 600 mg PO BID@0500,2200 08/06/20 12/24/20 12/24/20 History topiramate 50 mg PO BEDTIME@2200 08/06/20 12/24/20 12/23/20 History felodipine 2.5 mg tablet,extended 2.5 mg PO DAILY@0500 08/15/20 12/24/20 12/24/20 History release 24 hr Vitamin C 1 tab PO BID@05,09/07/20 12/24/20 12/24/20 History acetaminophen [Tylenol] 325 - 650 mg PO Q6H PRN 09/22/20 12/24/20 10/30/20 History lactulose 20 g PO BID@0500,2200 09/22/20 12/24/20 12/24/20 History ondansetron HCl [Zofran] 4 mg PO Q6H PRN #20 tab 10/31/20 12/24/20 Unknown Rx Eliquis 5 mg PO BID 12/24/20 12/24/20 12/24/20 History aspirin 81 mg PO DAILY #30 tab 12/24/20 Unknown Rx ferrous sulfate 325 mg PO DAILY 12/24/20 12/24/20 12/23/20 History fiber 1 tab PO EVERY OTHER DAY 12/24/20 12/24/20 Unknown History isosorbide mononitrate 30 mg PO DAILY #14 tab 12/24/20 Unknown Rx Allergies Allergy/AdvReac Type Severity Reaction Status Date / Time enalapril Allergy Severe ALGY-Swell Verified 11/16/20 09:26 Lip/Tongue/Throat adhesive Allergy rash Verified 11/16/20 09:26 amoxicillin [From Augmentin] Allergy gi upset Verified 11/16/20 09:26 clavulanic acid Allergy gi upset Verified 11/16/20 09:26 [From Augmentin] perfume Allergy ALGY-Hives Verified 11/16/20 09:26 PFSH Acute PFSH: Medical History Anemia Deep vein thrombosis of lower extremity Grade IV hemorrhoids Primary osteoarthritis of right knee Pulmonary embolism Surgical History History of appendectomy History of carpal tunnel release (~2019) History of colonoscopy (~09/2020) History of hernia repair Right femoral History of lumpectomy of both breasts History of neck surgery History of total right knee replacement (TKR) S/P hemorrhoidectomy Family History Brother Pericardial effusion Mother Breast cancer Father Hodgkin's lymphoma Denies family history of Anesthesia complication Bleeding disorder Social History Smoking and tobacco status: current every day smoker cigarettes Alcohol intake: never Substance/Drug Use: never Lives independently: Yes Marital status: Vitals/I&O/Wt Last Vital Signs Temp 97.6 F 12/24/20 13:15 Pulse 69 12/24/20 20:35 Resp 15 12/24/20 20:35 BP 157/87 12/24/20 20:35 Pulse Ox 88 L 12/24/20 20:35 Weight last 48 hrs Weight 68.492 kg Physical Exam Const: COMMON NORMALS: no acute distress and patient oriented x3 HENMT: COMMON NORMALS: oropharynx normal Neck/C-Spine: COMMON NORMALS: no JVD Resp: COMMON NORMALS: normal respiratory effort and clear to auscultation bilaterally AUSCULTATION: clear to auscultation bilaterally Cardio: COMMON NORMALS: no JVD, regular rhythm, S1 normal heart sound present, S2 normal heart sound present and No murmurs present (Cardio) RHYTHM: regular rhythm HEART SOUNDS: S1 normal heart sound present and S2 normal heart sound present GI: COMMON NORMALS: Normal to inspection, nondistended, normoactive bowel sounds present, Soft to palpation and non-tender PALPATION: Yes Soft to palpation Extremity: COMMON NORMALS: no joint enlargement and no pedal edema Neuro: COMMON NORMALS: patient oriented x3 and moves all extremities Skin: COMMON NORMALS: no rashes or lesions noted GENERAL SKIN EXAM: no rashes or lesions noted Data : 12/24/20 14:40 12/24/20 14:40 A&P Assessment and plan (1) Subacute pericarditis: Chest pain, worse with lying down, laying on the left side. Subacute course over the past 2 weeks. EKG not impressive, but she appears may be in the window where EKG findings returned to baseline. No suggestion of acute DE currently with normal troponin despite persistent/recurrent symptoms. Does not appear to have known trigger. Some reported chronic arthritis symptoms, joint stiffness. Will assess with MINERVA, RF. Tick bites a month ago, will request for tick panel. Reports some history of recurrent pericarditis like pericardial effusion in her brother. Check CRP, ESR. Assessed by TTE. She is concerned regarding addition of aspirin to Eliquis regarding risk of bleeding. Continue usual dose of aspirin 81 mg given lower suspicion of myocardial ischemia at this time. Will additionally treat with NSAID, colchicine. Monitor in the hospital for response to treatment, additional assessment. Telemetry monitoring. Status: Acute (2) Pericardial effusion: TTE. Status: Acute (3) Chest pain: As above. Complete troponin EKG series. Once symptoms under better control or if not responding to therapy may benefit from additional CAD risk stratification. Status: Acute (4) Smoking addiction: Encourage cessation. Status: Acute Additional A&P Information DVT, PE: Continue anticoagulation Attestations Medical Necessity Statement*: Place in observation due to progressive subacute pericarditis, chest pain, for cardiac monitoring, initiation of therapy, additional assessment of pericardial effusion. Coding Level of Care Code Acute Fitness Professional for [facility] Fwd Diagnoses Subacute pericarditis I31.9 Pericardial effusion I31.3 Chest pain R07.9 Smoking addiction F17.200
[2020-12-24 21:02] LABS: C Reactive Protein 7.5 mg/L (0.0-4.9)
[2020-12-24 21:15] LABS: Troponin 5 6HR 9.86 ng/L (0-10)
[2020-12-24 21:19] LABS: Troponin 5 6HR Delta -1.14 ng/L (0-12)
[2020-12-24] MEDS: atorvastatin 40 mg Tablet 20 MG PO (21:27)
[2020-12-24] MEDS: colchicine 0.6 mg Tablet PO (21:27)
[2020-12-24] MEDS: topiramate 25 mg Tablet 50 MG PO (21:27)
[2020-12-24] MEDS: ibuprofen 600 mg Tablet PO (21:27)
[2020-12-24] MEDS: gabapentin 300 mg Capsule 600 MG PO (21:29)
--- NOTE | 2020-12-24 21:32 | PC.NURSE ---
Patient requesting to have her night time dose of eliquis due to her history of DVT/PE. Patient has ordered to start in the am. Informed Dr Canas and received telephone order to change schedule to begin tonigt. RBVO
[2020-12-24 21:48] LABS: Erythrocyte Sedimentation Rate 35 mm/hr (0-15)
[2020-12-24] MEDS: apixaban 5 mg Tablet PO (21:49)
[2020-12-25] VITALS (11 sets, daily range): BP systolic 115–141; BP diastolic 75–93; PULSE 54–74; RESP 12–18; TEMP 36.5–36.8; O2SAT 94–97
--- NOTE | 2020-12-25 01:40 | PC.NURSE ---
Patient reports feeling much better. All pain and nausea have resolved and she is requesting something to eat. Provided vegetale soup and crackers. Patient expressed great thanks. Patient currently conversing with neighbor. No distress observed.
[2020-12-25] MEDS: acetaminophen 325 mg Tablet 650 MG PO ×2 (02:39→08:49)
[2020-12-25 04:07] LABS: Basophils # 0.1 10^3/uL (0.0-0.1); Basophils % 1.4 %; Eosinophils # 0.2 10^3/uL (0.0-0.8); Eosinophils % 3.1 %; Hematocrit 37.2 % (37.0-47.0); Hemoglobin 11.7 g/dL (11.5-15.3); Lymphocytes # 1.3 10^3/uL (0.8-4.8); Lymphocytes % 21.2 %; Mean Corpuscular HGB Conc 31.5 g/dL (30.0-36.0); Mean Corpuscular Hemoglobin 28.3 pg (28.0-34.0); Mean Corpuscular Volume 90.1 fL (81-99); Monocytes # 0.4 10^3/uL (0.2-0.9); Monocytes % 6.6 %; Neutrophils # 3.98 10^3/uL (1.8-7.7); Neutrophils % 67.4 %; Nucleated Red Blood Cells % 0 %; Platelet Count 232 10^3/cmm (130-400); Red Blood Count 4.13 10^6/uL (4.1-5.3); Red Cell Distribution Width 16.5 % (12.1-15.1); White Blood Count 5.9 10^3/uL (4.0-10.0)
[2020-12-25 04:25] LABS: Alanine Aminotransferase 13 U/L (0-33); Albumin Level 3.4 g/dL (3.5-5.2); Alkaline Phosphatase 95 IU/L (35-105); Anion Gap 14.5 (5-19); Aspartate Amino Transferase 16 U/L (0-32); Blood Urea Nitrogen 7 mg/dL (8-23); Calcium 8.7 mg/dL (8.5-10.5); Carbon Dioxide 22 mmol/L (22-29); Chloride 105 mmol/L (98-107); Globulin 2.3 g/dL (1.3-4.6); Glomerular Filtration Rate 100.3 mL/min (90-130); Glucose 135 mg/dL (65-115); Osmolality Calculated 286 mOsm/kg (285-295); Potassium 3.5 mmol/L (3.5-5.1); Sodium 138 mmol/L (136-145); Total Bilirubin 0.4 mg/dL (0.15-1.2); Total Protein 5.7 g/dL (6.6-8.7)
[2020-12-25] MEDS: MED 3 TAB PO (05:10)
[2020-12-25] MEDS: gabapentin 300 mg Capsule 600 MG PO ×2 (05:10→19:30)
[2020-12-25] MEDS: ibuprofen 600 mg Tablet PO ×2 (08:52→15:09)
[2020-12-25] MEDS: apixaban 5 mg Tablet PO ×2 (08:54→19:30)
[2020-12-25] MEDS: pantoprazole DR 40 mg Tablet PO ×2 (08:54→17:39)
--- NOTE | 2020-12-25 10:02 | PC.CHAP ---
Pastoral Care Encounter/Spiritual Assessment Type of Contact [] Declined foundry molder visit [] Patient/Family/Request visit [] Outpatient visit [] Follow-up visit [] Physician referral [] Code/Alert [x] Routine visit [] Staff referral [] Actively dying [] Patient sleeping [x] Family support [] [] Out of room [] Palliative care [] [] Receiving care in room [] Pre-surgical visit [] Trauma [] Long length of stay [] ICU visit [] Other: Relational/Emotional Strength [] Patient feels connected with others/family/visitors/staff [] Distress [] Loneliness/isolation [] Abandonment Spirituality of Patient [x] Person of Adriana [] Attends Bahai of their Adriana [] Believes in Prayer [] Reads Bible or Latter Day materials [] There are Spiritual issues to be addressed Audio Visual Production Specialist Interventions [x] Prayer [x] Active listening [x] Non-anxious presence [x] Spiritual/emotional support [] Crisis/trauma care [] Spiritual counseling [] Bereavement support [] Provided bereavement packet [] Provided Bible/devotional materials [] Provided toy/stuffed animal, coloring book to patient or family member [] Provided Communion [] Anointing/[place] [] Salvation [x] Completed spiritual assessment [] Other: Impact on Illness or Injury [] Angry [] Fearful [] Anxious [] Often cries [] Exhaustion [] Unable to work [] Unable to attend druze [] Unable to walk/stand [] Unable to read [] Unable to drive [] Unable to eat/drink [] Unable to sleep [] Unable to be with family [] Patient intubated [] Other: Summary patient states there are many stressers in her current life. family- home- pets- etc... she needs to be only concerned with her issues at present and then when stronger the others can be dealt with.. Time spent with patient 15 min
--- NOTE | 2020-12-25 13:03 | PM.PN ---
Subjective Subjective: Interval history: Chest pain appears to be doing a little better. Denies trouble breathing. No fever or chills. No new symptoms. Vitals/I&O/Wt Last Vital Signs Temp 97.7 F 12/25/20 12:00 Pulse 61 12/25/20 12:00 Resp 18 12/25/20 12:00 BP 125/78 12/25/20 12:00 Pulse Ox 96 12/25/20 12:00 12/24/20 12/25/20 12/25/20 22:59 06:59 14:59 Intake Total 240 / 240 650 / 890 Balance 240 / 240 650 / 890 Weight last 48 hrs Weight 68.492 kg Physical Exam Const: COMMON NORMALS: no acute distress and patient oriented x3 HENMT: COMMON NORMALS: oropharynx normal Neck/C-Spine: COMMON NORMALS: no JVD Resp: COMMON NORMALS: normal respiratory effort and clear to auscultation bilaterally AUSCULTATION: clear to auscultation bilaterally Cardio: COMMON NORMALS: no JVD, regular rhythm, S1 normal heart sound present, S2 normal heart sound present and No murmurs present (Cardio) RHYTHM: regular rhythm HEART SOUNDS: S1 normal heart sound present and S2 normal heart sound present GI: COMMON NORMALS: Normal to inspection, nondistended, normoactive bowel sounds present, Soft to palpation and non-tender PALPATION: Yes Soft to palpation Extremity: COMMON NORMALS: no joint enlargement and no pedal edema Neuro: COMMON NORMALS: patient oriented x3 and moves all extremities Skin: COMMON NORMALS: no rashes or lesions noted GENERAL SKIN EXAM: no rashes or lesions noted Data : 12/25/20 03:12 12/25/20 03:12 A&P Assessment and plan (1) Subacute pericarditis: Pending echocardiogram evaluation. Discussed with her consideration of pericardiocentesis in case of significant pericardial effusion. Symptomatically she appears to be doing better today with improvement in chest pain. Continue investigation for now, monitoring on telemetry, NSAIDs, colchicine for pericarditis. TTE important as well to assess LV function given left side enlargement noted on CTA. Monitor for decompensation/heart failure. Follow-up autoimmune studies, tick panel. Discussed with her symptomatically once she is doing better would benefit from additional risk stratification for CAD. ESR 35. CRP 7.5. Status: Acute (2) Pericardial effusion: TTE. Continue treatment of pericarditis. Status: Acute (3) Chest pain: As above. Discussed with her. Troponin minimally elevated without peak, not suggestive of acute [place]. Follow-up TTE. Once symptoms under better control or if not responding to therapy may benefit from additional CAD risk stratification. (4) Smoking addiction: Encourage cessation. Status: Acute Additional A&P Information DVT, PE: Continue anticoagulation Attestations Medical Necessity Statement*: Continue hospitalization for monitoring with initiation of therapy for acute pericarditis, closer assessment of pericardial effusion by echocardiography, consideration of pericardiocentesis, closer assessment of left ventricular enlargement noted on CT angiogram chest. Monitoring due to persistent chest pain. Telemetry monitoring due to risk of arrhythmia with consideration of possible myocarditis. Coding Level of Care Code Acute Global Compensation Analyst for Pierre Fwd Exam Comprehensive Diagnoses Subacute pericarditis I31.9 Pericardial effusion I31.3 Chest pain R07.9 Smoking addiction F17.200
--- NOTE | 2020-12-25 18:36 | PC.NURSE ---
Patient has had an uneventful day, pt endorsed headache this morning 5/10 but was relieved by Tylenol and icepack. Patient has not had any pain sense. Patient took a shower and performed personal hygiene.
[2020-12-25] MEDS: atorvastatin 40 mg Tablet 20 MG PO (19:30)
[2020-12-25] MEDS: colchicine 0.6 mg Tablet PO (19:30)
[2020-12-25] MEDS: topiramate 25 mg Tablet 50 MG PO (19:31)
--- NOTE | 2020-12-25 20:01 | USCV_ITS ---
Nicole Ashby Age: 65 Gender: F : 1955 Exam Date: 12/25/2020 06:30 Ordering Phys: David Turcios MD Technologist: Jennifer Larkin Exam Location: [facility] Indication: LV ENLARGMENT, PERICARD EFFUSION, CHEST PAIN BP: 129 / 92 HR: 57 Rhythm: Sinus Technical Quality: Adequate MEASUREMENTS (Male / Female) Normal Values 2D ECHO LV Diastolic Diameter PLAX 4.8 cm 4.2 - 5.9 / 3.9 - 5.3 cm LV Systolic Diameter PLAX 3.4 cm IVS Diastolic Thickness 1.8 cm 0.6 - 1.0 / 0.6 - 0.9 cm IVS Systolic Thickness 2.3 cm LVPW Diastolic Thickness 1.3 cm 0.6 - 1.0 / 0.6 - 0.9 cm LVPW Systolic Thickness 1.8 cm LVOT Diameter 2.0 cm LV Ejection Fraction 2D Teich 55.8 % LV Ejection Fraction MOD 2C 55.8 % LV Ejection Fraction 2C AL 56.6 % LA Diameter 2.9 cm LA Width 2.2 cm LA Height 2.7 cm RA Width 2.0 cm RA Height 2.9 cm Aorta at Sinotubular Diameter 3.1 cm M-MODE LV Diastolic Diameter MM 6.1 cm 4.2 - 5.9 / 3.9 - 5.3 cm LV Systolic Diameter MM 4.0 cm LV Ejection Fraction MM Teich 63.9 % IVS Diastolic Thickness MM 1.3 cm 0.6 - 1.0 / 0.6 - 0.9 cm IVS Systolic Thickness MM 2.3 cm LVPW Diastolic Thickness MM 1.4 cm 0.6 - 1.0 / 0.6 - 0.9 cm LVPW Systolic Thickness MM 1.3 cm Aortic Annulus Diameter 3.1 cm LA Ao Ratio MM 0.9 MV E Point Septal Separation 0.6 cm DOPPLER AV Peak Velocity 133.0 cm/s LVOT Peak Velocity 82.0 cm/s AV Area Cont Eq vti 1.9 cm squared AV Area Cont Eq pk 1.9 cm squared MV Peak Velocity 84.0 cm/s MV Area PHT 3.7 cm squared Mitral E to A Ratio 0.9 MV E' Velocity 33.5 cm/s Mitral E to MV E' Ratio 6.4 Mitral E to LV E' Lateral Ratio 7.5 Mitral E to LV E' Septal Ratio 5.6 TR Peak Velocity 221.6 cm/s TR Peak Gradient 19.6 mmHg TR Mean Velocity 188.3 cm/s TR Mean Gradient 14.3 mmHg TR Velocity Time Integral 69.0 cm TV Peak E Velocity 41.0 cm/s Right Atrial Pressure 3.0 mmHg Pulmonary Artery Systolic Pressu 22.6 mmHg PV Peak Velocity 93.0 cm/s RV Acceleration Time 0.1 s RV Ejection Time 0.3 s RV AcT/ET 0.3 FINDINGS Left Ventricle Normal left ventricular size and systolic function, EF 55 %. Mild left ventricular hypertrophy. No regional wall motion abnormalities. Right Ventricle The right ventricle is normal in size and function. Right Atrium The right atrium is normal in size. Left Atrium The left atrium is normal in size. Mitral Valve No gross abnormalities noted Aortic Valve Trace aortic valve regurgitation. Tricuspid Valve Trace tricuspid valve regurgitation. Pulmonic Valve No gross abnormalities noted Pericardium Normal pericardium without effusion. Aorta Normal ascending aorta dimension. CONCLUSIONS Normal left ventricular size and systolic function, EF 55 %. Mild left ventricular hypertrophy. No regional wall motion abnormalities. Trace aortic valve regurgitation. Trace tricuspid valve regurgitation. Estimated pulmonary artery peak systolic pressure was 23 mmHg There is no pericardial effusion. There are no intracardiac masses. No previous study is available for comparison. Dr Rosana Das MD [facility] (Electronically Signed) Final Date: 25 December 2020 18:54 S
--- NOTE | 2020-12-25 22:54 | PC.NURSE ---
Patient is currently resting with eyes closed. Will monitor.
[2020-12-26 04:00] VITALS: BP 145/99; PULSE 58; RESP 18; TEMP 36.7; O2SAT 94
[2020-12-26] MEDS: gabapentin 300 mg Capsule 600 MG PO (04:02)
[2020-12-26] MEDS: MED 3 TAB PO (04:03)
[2020-12-26 04:09] LABS: Basophils # 0.1 10^3/uL (0.0-0.1); Basophils % 1.1 %; Eosinophils # 0.3 10^3/uL (0.0-0.8); Eosinophils % 5.9 %; Hematocrit 36.8 % (37.0-47.0); Hemoglobin 11.7 g/dL (11.5-15.3); Lymphocytes # 1.8 10^3/uL (0.8-4.8); Lymphocytes % 33.5 %; Mean Corpuscular HGB Conc 31.8 g/dL (30.0-36.0); Mean Corpuscular Hemoglobin 28.3 pg (28.0-34.0); Mean Corpuscular Volume 89.1 fL (81-99); Mean Platelet Volume 9.7 fL (7.4-10.4); Monocytes # 0.4 10^3/uL (0.2-0.9); Monocytes % 7.8 %; Neutrophils # 2.78 10^3/uL (1.8-7.7); Neutrophils % 51.5 %; Nucleated Red Blood Cells % 0 %; Platelet Count 250 10^3/cmm (130-400); Red Blood Count 4.13 10^6/uL (4.1-5.3); Red Cell Distribution Width 16.4 % (12.1-15.1); White Blood Count 5.4 10^3/uL (4.0-10.0)
[2020-12-26 04:11] VITALS: PULSE 52
[2020-12-26 04:29] LABS: Anion Gap 13.5 (5-19); Blood Urea Nitrogen 12 mg/dL (8-23); Calcium 8.8 mg/dL (8.5-10.5); Carbon Dioxide 23 mmol/L (22-29); Chloride 109 mmol/L (98-107); Glucose 76 mg/dL (65-115); Osmolality Calculated 293 mOsm/kg (285-295); Potassium 3.5 mmol/L (3.5-5.1); Sodium 142 mmol/L (136-145)
[2020-12-26 08:00] VITALS: BP 144/90; PULSE 58; RESP 15; TEMP 36.5; O2SAT 92
[2020-12-26] MEDS: pantoprazole DR 40 mg Tablet PO (08:36)
[2020-12-26] MEDS: apixaban 5 mg Tablet PO (08:37)
[2020-12-26 09:36] VITALS: BP 142/80; PULSE 60; RESP 16; TEMP 36.4; O2SAT 95
--- NOTE | 2020-12-26 09:58 | PC.SOCIAL ---
Patient requested DPOA paperwork. These were provided and notarized. Original and copies provided to patient. Copy placed in chart.
--- NOTE | 2020-12-26 10:00 | PC.CHAP ---
Pastoral Care Encounter/Spiritual Assessment Type of Contact [] Declined manager investment banking visit [] Patient/Family/Request visit [] Outpatient visit [] Follow-up visit [] Physician referral [] Code/Alert [x] Routine visit [] Staff referral [] Actively dying [] Patient sleeping [] Family support [] [] Out of room [] Palliative care [] [] Receiving care in room [] Pre-surgical visit [] Trauma [] Long length of stay [] ICU visit [] Other: Relational/Emotional Strength [] Patient feels connected with others/family/visitors/staff [] Distress [] Loneliness/isolation [] Abandonment Spirituality of Patient [x] Person of Adriana [] Attends Jewish of their Adriana [] Believes in Prayer [] Reads Bible or Orthodox materials [] There are Spiritual issues to be addressed Manager Acute Interventions [x] Prayer [x] Active listening [x] Non-anxious presence [x] Spiritual/emotional support [] Crisis/trauma care [] Spiritual counseling [] Bereavement support [] Provided bereavement packet [] Provided Bible/devotional materials [] Provided toy/stuffed animal, coloring book to patient or family member [] Provided Communion [] Anointing/[place] [] Salvation [x] Completed spiritual assessment [] Other: Impact on Illness or Injury [] Angry [] Fearful [] Anxious [] Often cries [] Exhaustion [] Unable to work [] Unable to attend latter day [] Unable to walk/stand [] Unable to read [] Unable to drive [] Unable to eat/drink [] Unable to sleep [] Unable to be with family [] Patient intubated [] Other: Summary patient has been advised she will be discharged today..,. her concern is she doesn't have results of tests, and want a cardiac doctor assigned to her so that she may understand all this issues her heart is having... none prior Time spent with patient 10 min
--- NOTE | 2020-12-26 10:30 | PM.CONSULT ---
Providers/Reason For Consult Consulting Physician/Specialty*: Dr. Vieira, cardiology Reason for Consult*: Chest pain, pericarditis Attending Physician: David Turcios Primary Care Provider: JARRED Brewer History of Present Illness History of Present Illness Nicole Ashby is a 65 year old female with past medical history of arthritis, posterior tibial DVT, history of PE in 2018, history of lower GI bleed thought to be hemorrhoidal in origin, s/p hemorrhoidectomy x2 in October 2020. She presented to the ER on 24 December with complaints of chest pain of 2-week duration with radiation up to her neck and back. CT angiogram for lung was negative for PE. It did show mild interstitial edema left heart enlargement and small pericardial effusion. ESR 35 on admission, D-dimer 1.47, CRP 7.5. Baseline troponin T of 11 at 2 hours of 10.4 and at 6 hours of 9.86. EKG on admission shows sinus rhythm, normal axis with nonspecific T wave inversion in lead III. No ST segment elevation or AL segment depression noted. Unchanged from prior EKG. Review of Systems Const: Denies: fever(s), chills, body aches or malaise Eyes: Denies: change in vision or eye redness ENMT: Denies: throat pain, oral sores or ear or mastoid pain Card: Reports: chest pain and dyspnea on exertion; Denies: edema or pre-syncope Resp: Denies: dyspnea, productive cough, change in phlegm color or hemoptysis GI: Denies: abdominal pain, nausea, vomiting, diarrhea, constipation, hematochezia or melena : Denies: flank pain, urinary frequency or hematuria Musc: Denies: back pain, joint swelling or joint redness Skin/Breast: Denies: rash, sores or new lesions Neuro: Denies: headache(s), numbness in extremities, weakness in extremities, dizziness, confusion or seizure-like activity Endo: Denies: polyuria or polydipsia Yaw/Lymph: Denies: easy bleeding or purpura All/Imm: Denies: urticaria, throat swelling or tongue swelling Meds/Allergies Home Medications and Allergies Home Medications Medication Instructions Recorded Confirmed Last Taken Type multivitamin,bd-[id number]-[id number] 1 tab PO DAILY@0500 02/24/20 12/24/20 1 Day Ago History ~10/30/20 pravastatin 20 mg tablet 20 mg PO BEDTIME@2200 02/24/20 12/24/20 12/23/20 History Probiotic 3 mmu cells PO DAILY@0500 04/23/20 12/24/20 12/24/20 History Elderberry Gummy 1 cap PO BID@0500,2200 08/06/20 12/24/20 12/24/20 History gabapentin 600 mg PO BID@0500,2200 08/06/20 12/24/20 12/24/20 History topiramate 50 mg PO BEDTIME@2200 08/06/20 12/24/20 12/23/20 History felodipine 2.5 mg tablet,extended 2.5 mg PO DAILY@0500 08/15/20 12/24/20 12/24/20 History release 24 hr Vitamin C 1 tab PO BID@05,22 09/07/20 12/24/20 12/24/20 History acetaminophen [Tylenol] 325 - 650 mg PO Q6H PRN 09/22/20 12/24/20 10/30/20 History lactulose 20 g PO BID@0500,2200 09/22/20 12/24/20 12/24/20 History ondansetron HCl [Zofran] 4 mg PO Q6H PRN #20 tab 10/31/20 12/24/20 Unknown Rx Eliquis 5 mg PO 12/24/20 12/24/20 12/24/20 History aspirin 81 mg PO DAILY #30 tab 12/24/20 Unknown Rx ferrous sulfate 325 mg PO DAILY 12/24/20 12/24/20 12/23/20 History fiber 1 tab PO EVERY OTHER DAY 12/24/20 12/24/20 Unknown History isosorbide mononitrate 30 mg PO DAILY #14 tab 12/24/20 Unknown Rx colchicine [Colcrys] 0.6 mg PO Q24H #90 tab 12/26/20 Unknown Rx ibuprofen 600 mg PO TID 14 Days #42 tab 12/26/20 Unknown Rx pantoprazole 40 mg PO BID #60 tab 12/26/20 Unknown Rx Allergies Allergy/AdvReac Type Severity Reaction Status Date / Time enalapril Allergy Severe ALGY-Swell Verified 11/16/20 09:26 Lip/Tongue/Throat adhesive Allergy rash Verified 11/16/20 09:26 amoxicillin [From Augmentin] Allergy gi upset Verified 11/16/20 09:26 clavulanic acid Allergy gi upset Verified 11/16/20 09:26 [From Augmentin] perfume Allergy ALGY-Hives Verified 11/16/20 09:26 Current Medications Current Medications Generic Name Dose Route Start Last Admin Trade Name Laly PRN Reason Stop Dose Admin Acetaminophen 650 mg 12/24/20 20:32 12/25/20 08:49 Acetaminophen 325 Mg Tablet PO 650 mg Q6H PRN Administration PAIN/HEADACHE Apixaban 5 mg 12/24/20 21:45 12/26/20 08:37 Apixaban 5 Mg Tablet PO 5 mg 0900,2100 [facility] Administration Atorvastatin Calcium 20 mg 12/24/20 22:00 12/25/20 19:30 Atorvastatin 40 Mg Tablet PO 20 mg BEDTIME@2200 [facility] Administration Calcium Polycarbophil 625 mg 12/26/20 09:00 12/26/20 08:35 Calcium Polycarbophil 625 Mg Tablet PO Not Given EVERY OTHER DAY [facility] Colchicine 0.6 mg 12/24/20 21:00 12/25/20 19:30 Colchicine 0.6 Mg Tablet PO 0.6 mg Q24H [facility] Administration Felodipine 2.5 mg 12/25/20 05:00 12/26/20 04:02 Felodipine Er 5 Mg Tablet PO 2.5 mg DAILY@0500 [facility] Administration Gabapentin 600 mg 12/24/20 22:00 12/26/20 04:02 Gabapentin 300 Mg Capsule PO 600 mg BID@0500,2200 [facility] Administration Ibuprofen 600 mg 12/24/20 21:00 12/26/20 08:37 Ibuprofen 600 Mg Tablet PO Not Given TID [facility] Lactobacillus Acidophilus 3 tab 12/25/20 05:00 12/26/20 04:03 Med PO 3 tab DAILY@0500 [facility] Administration Lactulose 20 gm 12/24/20 22:00 12/25/20 22:43 Lactulose Oral Liq 20 Gm/30 Ml Udc PO Not Given BID@0500,2200 [facility] Multivitamins/Minerals 1 tab 12/25/20 05:00 12/26/20 04:02 Multivitamin W/Minerals Tablet PO 1 tab DAILY@0500 [facility] Administration Ondansetron HCl 4 mg 12/24/20 18:53 12/24/20 20:11 Ondansetron 2 Mg/Ml Sdv 2 Ml IVP 4 mg Q6H PRN Administration NAUSEA AND VOMITING Pantoprazole Sodium 40 mg 12/25/20 09:00 12/26/20 08:[address] 40 Mg Tablet PO 40 mg BID [facility] Administration Topiramate 50 mg 12/24/20 22:00 12/25/20 19:31 Topiramate 25 Mg Tablet PO 50 mg BEDTIME@2200 [facility] Administration PFSH Acute PFSH: Medical History Anemia Deep vein thrombosis of lower extremity Grade IV hemorrhoids Primary osteoarthritis of right knee Pulmonary embolism Surgical History History of appendectomy History of carpal tunnel release (~2019) History of colonoscopy (~09/2020) History of hernia repair Right femoral History of lumpectomy of both breasts History of neck surgery History of total right knee replacement (TKR) S/P hemorrhoidectomy Family History Brother Pericardial effusion Mother Breast cancer Father Hodgkin's lymphoma Denies family history of Anesthesia complication Bleeding disorder Social History Smoking and tobacco status: current every day smoker cigarettes Alcohol intake: never Lives independently: Yes Marital status: Vitals/I&O/Wt Last Vital Signs Temp 97.5 F L 12/26/20 09:36 Pulse 60 12/26/20 09:36 Resp 16 12/26/20 09:36 BP 142/80 12/26/20 09:36 Pulse Ox 95 12/26/20 09:36 12/25/20 12/26/20 12/26/20 22:59 06:59 14:59 Intake Total 220 / 574 500 / 500 Balance 220 / 574 500 / 500 Weight last 48 hrs Weight 151 lb Physical Exam Narrative: EXAM NARRATIVE: GENERAL: Averagely built and averagely nourished in no acute distress HEENT: Extraocular movement intact. No pallor or icterus. NECK: central trachea, No JVD. No carotid bruit. CARDIOVASCULAR SYSTEM: S1-S2 regular. No S3 or S4 present. No murmur rubs or gallops. RESPIRATORY SYSTEM: Chest clear to auscultation. No wheezes rhonchi or rubs heard. No use of accessory muscles. ABDOMEN: Soft, nontender and nondistended. Normal bowel sounds present. EXTREMITIES: No cyanosis or clubbing. No edema. HAND II CUTTER: Patient is alert oriented ?3. No focal neurological deficits. SKIN: Normal turgor and temperature. No breakdown, rash or nail changes noted. PSYCH: Normal insight and judgment. Data Other Data: Attestation for Other Data: I personally reviewed and interpreted the following: Other data: Transthoracic echocardiogram 25 December 2020 CONCLUSIONS Normal left ventricular size and systolic function, EF 55 %. Mild left ventricular hypertrophy. No regional wall motion abnormalities. Trace aortic valve regurgitation. Trace tricuspid valve regurgitation. Estimated pulmonary artery peak systolic pressure was 23 mmHg There is no pericardial effusion. There are no intracardiac masses. No previous study is available for comparison CTA chest IMPRESSION: 1. No pulmonary embolism. 2. Mild interstitial edema. 3. Marked LEFT heart enlargement. Small pericardial effusion. 4. No pneumonia. 5. Mild enlargement of the aorta but no aneurysm. A&P Assessment and plan (1) Subacute pericarditis: First episode -Chest pain at the begining typical of pericarditis. -No EKG changes. Increased ESR and CRP. -Trivial pericardial effusion on CT. -No evidence of myocardial involvement. -agree with ibuprofen and colchicine. Patient concerned about hemorrhoidal bleeding.May hold eliquis for a dose if bleeding worsens. All patient's questions and concerns were answered. -will continue NSAID's at least for 2 weeks based on clinical recovery and colchicine for 3 months. -ESR and CRP in 1-2 weeks -Follow up in 2 weeks with me in [facility]/ Status: Acute (2) History of pulmonary embolus (PE): Old Status: Acute (3) History of deep vein thrombosis: On Eliquis Status: Acute (4) Pericardial effusion: Not significant on echo Status: Acute Additional A&P Information Chronic active smoker Thank you for allowing me to participate in patient's care. please feel free to call with questions or concerns Consult Attestations Time Spent in Patient Care: Greater than 35 minutes (>than 50% of time spent in counselling and/or direct pt care on unit). Coding Level of Care Code Acute Surgical Orderly for Chg Fwd Diagnoses Subacute pericarditis I31.9 History of pulmonary embolus (PE) Z86.711 History of deep vein thrombosis Z86.718 Pericardial effusion I31.3
[2020-12-26 12:00] VITALS: BP 143/90; PULSE 64; RESP 14; TEMP 36.6; O2SAT 97
--- NOTE | 2020-12-26 14:30 | PC.NURSE ---
pt education provided, iv removed, vs stable upon departure. left with family member
[2020-12-26 15:31] VITALS: BP 143/90; PULSE 64; RESP 14; TEMP 36.6; O2SAT 97
--- NOTE | 2020-12-27 11:32 | PC.RESP ---
SMOKING CESSATION INFORMATION SENT TO PATIENT.
[2020-12-27 20:48] LABS: Anti-Nuclear Antibody Screen NEGATIVE (NEGATIVE)
--- NOTE | 2020-12-28 07:49 | P.DS_ITS ---
Discharge Providers Date of Admission: 12/24/20 18:02 Date of Discharge: December 28, 2020 Attending Provider at Admission: David Turcios Attending Provider at Discharge: David Turcios Primary Care Provider: JARRED Brewer Diagnoses at Discharge Discharge Diagnosis (1) Subacute pericarditis: Status: Acute (2) History of pulmonary embolus (PE): (3) History of deep vein thrombosis: (4) Pericardial effusion: Status: Resolved Reason for Visit Reason for Visit: SENT BY PCP/CHEST TIGHTNESS, HX OF EMBOLISM Hospital Course Hospital Course Nalini 65-year-old lady was hospitalized for observation due to episodes of chest pain of about 2 weeks duration initially with radiation up to her neck, back, atypical in nature, with chest pain worse when she would lay down on her back or left side. CT angiogram of the chest was obtained on presentation due to history of PE, she is on chronic anticoagulation. No PE was noted. Mild interstitial edema, left heart enlargement and small pericardial effusion was noted. ESR and CA. Noted elevated at 35 and 7.5 respectively. High- sensitivity troponin XI-10.4-9.86. EKG with sinus rhythm, nonspecific T wave inversion in lead III. No ST elevation or TN depression. Echocardiogram was obtained with finding of normal ejection fraction, 55%, no pericardial effusion. No regional wall motion abnormalities. She was started on ibuprofen, colchicine for subacute pericarditis, first episode with improvement in symptoms the following day. She was continued on anticoagulation which she tolerated in the hospital. There were no symptoms of acute OK, although this was considered given her active smoking history. She was assessed by cardiology. With symptomatology supporting subacute pericarditis, with improving symptoms, feeling much better compared to admission, no evidence on work-up of active cardiac ischemia recommendation was to complete further 2 weeks of NSAIDs, possibly with extension depending on follow-up studies and symptoms, 3 months of colchicine. Follow-up ESR, CRP are requested for 1 week from now and she was asked to follow-up in office with cardiology for consideration and coordination of further assessments with regards to the pericarditis, as well as work-up for possible underlying coronary disease. Physical Exam Const: COMMON NORMALS: no acute distress, patient oriented x3 and alert GENERAL APPEARANCE: cooperative and comfortable ORIENTATION/CONSCIOUSNESS: Yes awake OTHER: Pleasant, conversant. HENMT: COMMON NORMALS: oropharynx normal Neck/C-Spine: COMMON NORMALS: no JVD Resp: COMMON NORMALS: normal respiratory effort and clear to auscultation bilaterally AUSCULTATION: clear to auscultation bilaterally Cardio: COMMON NORMALS: no JVD, regular rhythm, S1 normal heart sound present, S2 normal heart sound present and No murmurs present (Cardio) RHYTHM: regular rhythm HEART SOUNDS: S1 normal heart sound present and S2 normal heart sound present GI: COMMON NORMALS: Normal to inspection, nondistended, normoactive bowel sounds present, Soft to palpation and non-tender PALPATION: Yes Soft to palpation Extremity: COMMON NORMALS: no joint enlargement and no pedal edema Neuro: COMMON NORMALS: patient oriented x3 and moves all extremities SENSORIUM/ORIENTATION: Yes alert Skin: COMMON NORMALS: no rashes or lesions noted GENERAL SKIN EXAM: no rashes or lesions noted Discharge Data Data Completed and Pending: Completed Studies During Hospitalization Category Date Time Status CT angio chest PE protcl [id number] Stat Cat Scan 12/24/20 14:29 Completed XR chest 1V janine ble [id number] Stat Exams 12/24/20 13:31 Completed CV echo complete* [id number] Routine Ultrasound 12/25/20 20:01 Completed Pending at discharge Category Date Time Status [facility] Screen w/ Ref marie Routine Lab 12/24/20 20:48 Results Labs from last 24 hours 12/24/20 20:48 [facility] Screen Negative Vitals: Last Vital Signs Temp 97.8 F 12/26/20 15:31 Pulse 64 12/26/20 15:31 Resp 14 12/26/20 15:31 BP 143/90 12/26/20 15:31 Pulse Ox 97 12/26/20 15:31 Discharge Plan Discharge Patient Disposition: Home Condition: Stable Prescriptions: New isosorbide mononitrate 30 mg tablet extended release 24 hr 30 mg PO DAILY Qty: 14 RF: 0 aspirin 81 mg tablet,delayed release (DR/EC) 81 mg PO DAILY Qty: 30 RF: 0 ibuprofen 600 mg Tablet 600 mg PO TID 14 Days Qty: 42 RF: 0 Colcrys 0.6 mg Tablet 0.6 mg PO Q24H Qty: 90 RF: 0 pantoprazole 40 mg Tablet,Delayed Release (Dr/Ec) 40 mg PO BID Qty: 60 RF: 0 Continued pravastatin 20 mg tablet 20 mg PO BEDTIME@2199 RF: 0 Complete Multivitamin Tablet 1 tab PO DAILY@050 RF: 0 felodipine 2.5 mg tablet extended release 24 hr 2.5 mg PO DAILY@050 RF: 0 Vitamin C 1 tab PO BID@ RF: 0 ondansetron HCl [Zofran] 4 mg tablet 4 mg PO Q6H PRN (Reason: nausea and vomiting) Qty: 20 RF: 0 Probiotic 3 billion cell Capsule 3 mmu cells PO DAILY@050 RF: 0 gabapentin 300 mg capsule 600 mg PO BID@499,2199 RF: 0 topiramate 50 mg tablet 50 mg PO BEDTIME@2199 RF: 0 Elderberry Gummy 1 cap PO BID@499,2199 RF: 0 lactulose 10 gram/15 mL (15 mL) solution 20 g PO BID@499,2199 RF: 0 acetaminophen [Tylenol] 325 mg Tablet 325 - 650 mg PO Q6H PRN (Reason: PAIN/HEADACHE) RF: 0 ferrous sulfate 325 mg (65 mg iron) Tablet 325 mg PO DAILY RF: 0 fiber Tablet 1 tab PO EVERY OTHER DAY RF: 0 Eliquis 5 mg tablet 5 mg PO RF: 0 Discharge Orders: Discharge Order (Routine); Ordered 12/26/20 Ordered By: David Turcios Other Ambulatory Orders: C Reactive Protein (Routine) Timeframe: 1 Week Facility: [facility] - Location: Lab - Main Lab Ordered By: David Turcios Erythrocyte Sedimentation Rate (Routine) Timeframe: 1 Week Facility: [facility] - Location: Lab - Main Lab Ordered By: David Turcios Referrals: Dilcia Vieira MD [Physician] - 2 weeks (You have a follow up appointment with Isha on thursdayjanuary 09 at 315. If you have question or need to reschedule please call [phone]) Benita Padilla FNP [Primary Care Provider] - 4-7 days (You have a follow up appointment with on January 03 at 1100. If you have any questions or need to reschedule please call [phone]) Discharge Diet: Cardiac Discharge Activity: Limit activity as instructed Patient Instructions: Ibuprofen (By mouth), Aspirin (By mouth), Colchicine (By mouth), Isosorbide Mononitrate (By mouth), Pantoprazole (By mouth), Apixaban (By mouth), How to Stop Smoking (GEN), Cigarette Smoking and Your Health (GEN), Acute Pericarditis (DC) Activity Restrictions/Additional Instructions: Please stop smoking, continued smoking will lead to progressive cardiovascular disease, with additional complications including heart attack, stroke, peripheral arterial disease and ischemia in limbs and other organs, lung disease, various cancers. Please continue ibuprofen, colchicine for pericarditis. Please follow-up with cardiology in office in 2 weeks. Ibuprofen is to be continued 3 times daily for at least 2 weeks, and may be extended further by your inserter promotional item. Colchicine to be continued for at least 3 months. In case of concerning symptoms including worsening chest pain, fever, shortness of breath, or other concerning symptoms, please seek medical attention. Discharge Attestations Time Spent in Discharge Care*: greater than 30 min Quality Metrics Clinical Quality Measures During this hospital stay, did patient experience: None Coding Level of Care Code Acute Chg FW DC note Diagnoses Subacute pericarditis I31.9 History of pulmonary embolus (PE) Z86.711 History of deep vein thrombosis Z86.718 Pericardial effusion I31.3
== END 2020-12-26 15:33 | disposition home or self-care (01) ==
LOC: ER 17:49 → CSU 18:22
PROVIDERS: Admitting Provider Internal Medicine; Emergency Provider Family Medicine; PCP Nurse Practitioner; Visit Provider Internal Medicine
DX: I31.9 Disease of pericardium, unspecified (principal); Z86.711 Personal history of pulmonary embolism; Z86.718 Personal history of other venous thrombosis and embolism; I31.3 Pericardial effusion (noninflammatory); Z79.01 Long term (current) use of anticoagulants; F17.210 Nicotine dependence, cigarettes, uncomplicated
CPT/HCPCS: 36415; 71045; 71275; 80048; 80053; 81003; 84484; 85025; 85378; 85651; 86038; 86140; 86431; 86617; 93005; 93306; 99285; G0378; J2405; Q9967

== ENCOUNTER 2021-05-17 08:44 | Outpatient (CLI) | payer MEDICARE, SELFPAY ==
--- NOTE | 2021-05-17 08:56 | XR_ITS ---
WS: [id number] Bone mineral density performed on a [employer], today Clinical data: POSTMENOPAUSAL Findings: The first 4 lumbar vertebral bodies demonstrated the bone mineral density of 1.398 g/cm2 for a young adult T score of 1.8. There is a levoscoliosis. Measurement of the left hip reveals a bone mineral density of 0.897 g/cm2 with a young adult T score of -0.9. Measurement of the right hip reveals the bone mineral density of 0.897 g/cm2 for young adult T score of -0.9. XR/XR DEXA axial skeleton* [id number] Impression: Normal bone mineral density of the lumbar spine and both hips.
== END 2021-05-17 08:45 | disposition home or self-care (01) ==
LOC: RADWPI 08:48
PROVIDERS: PCP Nurse Practitioner; Visit Provider Nurse Practitioner
DX: Z78.0 Asymptomatic menopausal state (principal)
CPT/HCPCS: 77080

== ENCOUNTER 2021-06-07 11:25 | Outpatient (CLI) | payer MEDICARE, SELFPAY ==
--- NOTE | 2021-06-07 11:35 | MM_ITS ---
WS: [id number] BILATERAL DIGITAL SCREENING MAMMOGRAPHY WITH CAD CLINICAL INFORMATION: SCREENING HISTORY: Screening mammogram. No current complaints. COMPARISON: March 19, 2020 TECHNIQUE: Bilateral CC and MLO views. FINDINGS: The breasts are composed of heterogeneous fibroglandular density tissue, which can limit the detectio n of small underlying mass lesions. A few benign punctate calcifications are unchanged. No suspicious mass, asymmetry, calcifications, or architectural distortion. No evidence of malignancy. MM/[place] [id number] IMPRESSION: BI-RADS: 2-Benign FOLLOW UP: 1 Year Follow-up Recommend return to annual screening mammography.
== END 2021-06-07 11:26 | disposition home or self-care (01) ==
LOC: RADSHAW 11:28
PROVIDERS: PCP Nurse Practitioner; Visit Provider Nurse Practitioner
DX: Z12.31 Encounter for screening mammogram for malignant neoplasm of breast (principal)
CPT/HCPCS: 77067

== ENCOUNTER 2021-09-12 15:22 | Outpatient (CLI) | payer MEDICARE, SELFPAY ==
--- NOTE | 2021-09-12 15:46 | MR_ITS ---
WS: [id number] MRI HEAD WITHOUT CONTRAST TECHNIQUE: Sagittal T1, T2 axial, T2 axial FLAIR, axial and coronal T1 images, axial susceptibility w eighted imaging, axial diffusion weighted images, and coronal T2 images were obtained. CLINICAL INFORMATION: CHRONIC HEADACHE COMPARISON: CT September 07, 2020 FINDINGS: No evidence of restricted diffusion to suggest acute ischemia. Ventricular system and basal cisterns are patent. Moderate small vessel changes with no significant parenchymal volume loss. Small vessel c hanges in the kamilah. Normal vascular flow voids at the skull base. No extra-axial fluid collections. N o evidence of mass or mass effect. Paranasal sinuses and mastoid air cells are well aerated. Mild muc osal thickening RIGHT mastoid tip. Prominent perivascular spaces in the basal ganglia. A few tiny chr onic lacunar infarcts in the basal ganglia. Partially visualized mild central canal stenosis in the upper cervical spine at C3-C4. This can be fu rther evaluated cervical spine MRI. No hemosiderin on susceptibly weighted images. Normal optic chiasm and pituitary infundibulum. Normal cavernous sinuses and Meckel's cave. MR/MR head wo con* [id number] IMPRESSION: 1. No evidence of restricted diffusion to suggest acute ischemia. 2. Moderate small vessel changes. No significant parenchymal volume loss. 3. Small vessel changes in the kamilah. 4. 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 No hemosiderin on susceptibly weighted images. 6. Mild mucosal thickening RIGHT mastoid tip. Paranasal sinuses and mastoid ai r cells are otherwise well aerated. 7. Mild central canal stenosis partially visualized in the upper cervical spin e at C3. This could be further evaluated with cervical spine MRI.
== END 2021-09-12 15:23 | disposition home or self-care (01) ==
LOC: RAD 15:26
PROVIDERS: PCP Nurse Practitioner; Visit Provider Nurse Practitioner
DX: R51.9 Headache, unspecified (principal); I63.9 Cerebral infarction, unspecified; M48.02 Spinal stenosis, cervical region
CPT/HCPCS: 70551

== ENCOUNTER → 2021-11-01 09:17 | Outpatient (BNVA) | payer MEDICARE, SELFPAY | PROVIDERS: PCP Nurse Practitioner; Visit Provider Internal Medicine Cardiovascular Disease | DX: I31.9 Disease of pericardium, unspecified (principal); I82.409 Acute embolism and thrombosis of unspecified deep veins of unspecified lower extremity; M17.11 Unilateral primary osteoarthritis, right knee; Z86.711 Personal history of pulmonary embolism; F17.210 Nicotine dependence, cigarettes, uncomplicated; Z79.01 Long term (current) use of anticoagulants | CPT/HCPCS: 99213; 99214 ==

== ENCOUNTER 2021-12-11 06:00 | Outpatient (RCR) | payer MEDICARE, SELFPAY | END 2022-01-02 23:59 | disposition home or self-care (01) | LOC: SPT 06:00 | PROVIDERS: PCP Nurse Practitioner; Referring Provider Nurse Practitioner Family; Visit Provider Nurse Practitioner Family | DX: M54.2 Cervicalgia (principal); G89.29 Other chronic pain | CPT/HCPCS: 97110; 97161 ==

== ENCOUNTER 2022-01-03 06:00 | Outpatient (RCR) | payer MEDICARE, SELFPAY | END 2022-02-02 23:59 | disposition home or self-care (01) | LOC: SPT 06:00 | PROVIDERS: PCP Nurse Practitioner; Referring Provider Nurse Practitioner Family; Visit Provider Nurse Practitioner Family | DX: M54.2 Cervicalgia (principal); G89.29 Other chronic pain | CPT/HCPCS: 97110 ==

== ENCOUNTER 2022-03-07 07:22 | Outpatient (CLI) | payer MEDICARE, SELFPAY ==
--- NOTE | 2022-03-07 07:36 | MR_ITS ---
WS: [id number] MRI CERVICAL SPINE with and without contrast. HISTORY: CHRONIC NECK PAIN COMPARISON: 01/18/2019 Technique: Multiplanar, multisequence noncontrast imaging of the cervical spine. Sagittal and axial T 1 fat sat sequences post-MultiHance extending cc IV. Straightening of the normal cervical lordosis. Bony fusion at the C5-6 disc level. There is a small a mount of edema in the adjacent endplates of C6 and C7. C4 anterolisthesis by 3 mm. No acute fractures . Signal within the cervical cord is normal. Visualized posterior fossa is unremarkable. Craniocervical junction, C1 and C2 relationship, odontoid process and soft tissues are normal. C2-C3: LEFT paracentral and proximal foraminal osteophytes causing mild LEFT foraminal stenosis. C3-C4: Osteophytic ridging with LEFT foraminal osteophytes causing mild stenosis. C4-C5: Diffuse osteophytic ridging with mild anterolisthesis of C4. Osteophytes and facet arthritis e ncroaching into the thecal sac and foramina. Mild central and RIGHT foraminal stenosis. Moderate LEFT foraminal stenosis. C5-C6: Mild osteophytic ridging with no high-grade stenosis. C6-C7: Diffuse annular disc bulging and osteophytic ridging and facet arthritis. Foraminal osteophyte s and disc causing a moderate bilateral foraminal stenosis and mild central stenosis. C7-T1: Mild central and bilateral foraminal stenosis. Normal paravertebral soft tissues. Additional small disc protrusion centrally at T1-2 and T2-3. No co rd contact. No areas of abnormal enhancement to suggest a discitis or osteomyelitis. There is very sl ight enhancement within the adjacent endplates at C6-7 which is probably inflammatory in etiology. Th ere are no soft tissue masses. No epidural abscess. MR/MR cervical spine wo/w [id number] IMPRESSION: 1. Stable osseous disc fusion at C5-6. 2. No osteomyelitis or discitis or epidural abscess. 3. Multilevel disc protrusions, osteophytes and facet arthritis as described a leslie. As compared to the prior study of 01/18/2019 there is been a mild progress ion of stenoses and facet arthritis. 4. Moderate bilateral foraminal stenosis with mild central stenosis at C6-7. 5. Mild LEFT foraminal stenosis at C2-3 and C3-4. Predominantly due to osteoph ytes encroaching into the foramina. 6. Moderate LEFT foraminal stenosis at C4-5 with mild central and RIGHT forami nal stenosis due to osteophyte and facet disease. 7. Mild central and bilateral foraminal stenosis at C7-T1.
[2022-03-07] MEDS: gadobenate dimeglumine 20 mL vial IV (08:35)
== END 2022-03-07 07:23 | disposition home or self-care (01) ==
PROVIDERS: PCP Nurse Practitioner; Visit Provider Nurse Practitioner Family
DX: G89.29 Other chronic pain (principal); M48.03 Spinal stenosis, cervicothoracic region; M48.02 Spinal stenosis, cervical region; M25.78 Osteophyte, vertebrae
CPT/HCPCS: 72156

== ENCOUNTER 2022-06-23 09:47 | Outpatient (CLI) | payer MEDICARE, SELFPAY ==
--- NOTE | 2022-06-23 11:32 | MM_ITS ---
WS: [id number] BILATERAL SCREENING DIGITAL TOMOSYNTHESIS MAMMOGRAM WITH CAD HISTORY: Screening. COMPARISON: None available. Bilateral CC and MLO views with tomosynthesis and synthetic mammography submitted. Computer aided det ection analyzed. Breast composition: The breasts are heterogeneously dense, which may obscure small masses. No suspici ous masses, microcalcifications or architectural distortion. A few scattered punctate calcifications. MM/[place] [id number] IMPRESSION: BI-RADS: 2-Benign FOLLOW UP: 1 Year Follow-up
== END 2022-06-23 09:48 | disposition home or self-care (01) ==
PROVIDERS: PCP Nurse Practitioner; Visit Provider Nurse Practitioner Family
DX: Z12.31 Encounter for screening mammogram for malignant neoplasm of breast (principal)
CPT/HCPCS: 77063; 77067

== ENCOUNTER 2022-07-06 06:00 | Outpatient (RCR) | payer MEDICARE, SELFPAY | END 2022-08-05 23:59 | disposition home or self-care (01) | LOC: SPT 06:00 | PROVIDERS: PCP Nurse Practitioner; Visit Provider Neurological Surgery | DX: M47.812 Spondylosis without myelopathy or radiculopathy, cervical region (principal) | CPT/HCPCS: 97110; 97161 ==

== ENCOUNTER 2022-08-06 06:00 | Outpatient (RCR) | payer MEDICARE, SELFPAY | END 2022-09-02 23:59 | disposition home or self-care (01) | LOC: SPT 06:00 | PROVIDERS: PCP Nurse Practitioner Family; Visit Provider Neurological Surgery | DX: M47.812 Spondylosis without myelopathy or radiculopathy, cervical region (principal) | CPT/HCPCS: 97110 ==

== ENCOUNTER 2022-09-03 06:00 | Outpatient (RCR) | payer MEDICARE, SELFPAY | END 2022-10-03 23:59 | disposition home or self-care (01) | LOC: SPT 06:00 | PROVIDERS: PCP Nurse Practitioner Family; Visit Provider Neurological Surgery | DX: M47.812 Spondylosis without myelopathy or radiculopathy, cervical region (principal) | CPT/HCPCS: 97110 ==

== ENCOUNTER 2022-09-30 08:54 | Outpatient (CLI) | payer MEDICARE, SELFPAY ==
[2022-09-30 09:16] LABS: D Dimer 1.25 ug/mIFEU (0-0.59)
== END 2022-09-30 08:55 | disposition home or self-care (01) ==
PROVIDERS: PCP Nurse Practitioner Family; Visit Provider Nurse Practitioner
DX: R53.83 Other fatigue (principal); R53.81 Other malaise
CPT/HCPCS: 85378

== ENCOUNTER 2022-09-30 16:25 | Emergency (ER) | payer MEDICARE, SELFPAY ==
--- NOTE | 2022-09-30 16:27 | XRR_ITS ---
PROCEDURE INFORMATION: Exam: XR Chest Exam date and time: 09/30/2022 4:47 PM Age: 67 years old Clinical indication: Shortness of breath; Additional info: SOB TECHNIQUE: Imaging protocol: Radiologic exam of the chest. Views: 1 view. COMPARISON: CR XR chest 1V portable [id number] 12/24/2020 1:42 PM FINDINGS: Lungs: Unremarkable. No consolidation. Pleural spaces: Unremarkable. No pleural effusion. No pneumothorax. Heart/Mediastinum: Unremarkable. No cardiomegaly. Bones/joints: Unremarkable. XR/XR chest 1V portable [id number] IMPRESSION: No acute findings.
[2022-09-30 16:33] VITALS: BP 175/122; PULSE 68; RESP 15; TEMP 36.4; O2SAT 99; BMI 28.3
[2022-09-30 17:42] LABS: Basophils # 0.1 10^3/uL (0.0-0.1); Basophils % 1.1 %; Eosinophils # 0.3 10^3/uL (0.0-0.8); Eosinophils % 4.8 %; Hematocrit 41.2 % (37.0-47.0); Hemoglobin 13.2 g/dL (11.5-15.3); Lymphocytes # 1.7 10^3/uL (0.8-4.8); Lymphocytes % 24.4 %; Mean Corpuscular Volume 87.3 fl (81-99); Mean Platelet Volume 9.9 fL (7.4-10.4); Monocytes # 0.6 10^3/uL (0.2-0.9); Monocytes % 8.6 %; Neutrophils # 4.31 10^3/uL (1.8-7.7); Neutrophils % 60.8 %; Nucleated Red Blood Cells % 0 %; Platelet Count 276 10^3/cmm (130-400); Red Blood Count 4.72 10^6/uL (4.1-5.3); Red Cell Distribution Width 16.5 % (12.1-15.1); White Blood Count 7.1 10^3/uL (4.0-10.0)
[2022-09-30 18:20] LABS: Alanine Aminotransferase 17 U/L (0-33); Albumin Level 4.4 g/dL (3.5-5.2); Alkaline Phosphatase 104 U/L (35-105); Blood Urea Nitrogen 9 mg/dL (8-23); Calcium 9.4 mg/dL (8.5-10.5); Carbon Dioxide 22 mmol/L (22-29); Chloride 107 mmol/L (98-107); Globulin 3.1 g/dL (1.3-4.6); Glomerular Filtration Rate 71.5 mL/min (90-130); Glucose 91 mg/dL (65-115); Osmolality Calculated 296 mOsm/kg (285-295); Sodium 144 mmol/L (136-145); Total Bilirubin 0.3 mg/dL (0.15-1.2); Total Protein 7.5 g/dL (6.6-8.7)
[2022-09-30 18:21] LABS: Anion Gap 18.5 (5-19); Aspartate Amino Transferase 26 U/L (0-32); Potassium 3.5 mmol/L (3.5-5.1)
[2022-09-30 18:24] LABS: Troponin(5th) Baseline 12 ng/L (0-10)
[2022-09-30 19:46] LABS: Troponin 5 2HR 10.78 ng/L (0-10)
[2022-09-30 19:52] LABS: Troponin 5 2HR Delta -1.22 ABS# (0-10)
[2022-09-30 20:07] VITALS: BP 137/94; BP 149/90; PULSE 60; PULSE 64; RESP 16; TEMP 36.6; O2SAT 97; O2SAT 98
--- NOTE | 2022-09-30 20:36 | CTR_ITS ---
PROCEDURE INFORMATION: Exam: CTA Chest With Contrast Exam date and time: 09/30/2022 9:29 PM Age: 67 years old Clinical indication: Shortness of breath; Prior surgery; Surgery date: 6+ months; Surgery type: Bilat lumpectomy; Additional info: SOB TECHNIQUE: Imaging protocol: Computed tomographic angiography of the chest with contrast. 3D rendering (Not supervised by radiologist): MIP and/or 3D reconstructed images were created by the technologist. Radiation optimization: All CT scans at this facility use at least one of these dose optimization techniques: automated exposure control; mA and/or kV adjustment per patient size (includes targeted exams where dose is matched to clinical indication); or iterative reconstruction. Contrast material: OMNI 350; Contrast volume: 100 ml; Contrast route: INTRAVENOUS (IV); REPORTING DATA: Count of CT and Cardiac NM exams in prior 12 months: This patient has received 0 known CTs and 0 known cardiac nuclear medicine studies in the 12 months prior to the current study. COMPARISON: CT angio chest PE protcl [id number] 12/24/2020 3:30 PM RADIATION DOSE METRICS: Total DLP (mGy-cm): 341.28 FINDINGS: Pulmonary arteries: Overall exam quality is good for evaluating the pulmonary arteries. There are no intraluminal filling defects to indicate pulmonary embolism. Aorta: The ascending thoracic aorta remains enlarged up to 4.3 cm which is unchanged since 2020. No evidence of dissection although evaluation is limited by insufficient aortic contrast. The descending thoracic aorta measures 3.4 cm which is also unchanged and is also enlarged. There is very little contrast within the thoracic aorta which limits intimal evaluation. Lungs: No pneumonia or mass. There scattered bands of linear atelectasis or scarring in the lung bases. No generalized fibrosis. Pleural spaces: No pleural effusion. Heart: Unremarkable. No cardiomegaly. No pericardial effusion. Coronary arteries: There are scattered calcified plaques in the coronary arteries. Lymph nodes: Unremarkable. No enlarged lymph nodes. Liver: The visualized portions of the liver and spleen are unremarkable. Bones/joints: Scattered chronic degenerative disc disease in the mid to lower thoracic spine. Soft tissues: Unremarkable. CT/CT angio chest PE protcl [id number] IMPRESSION: 1. No pulmonary embolism or pneumonia. 2. Unchanged enlarged ascending and descending thoracic aorta.
--- NOTE | 2022-09-30 20:38 | W.ED.RECABL ---
HPI - Recheck/Abnormal Lab/Rx General: Chief Complaint: Recheck/Abnormal Lab/Rx Stated Complaint: Low D.Dimer, Sent by [facility] Time Seen by Provider: 09/30/22 20:07 Source: patient Mode of arrival: ambulatory Limitations: no limitations History of Present Illness: 67-year-old female states that she has been having swollen lymph nodes over the last week she states she also felt like her nails been brittle and her hair is been falling out she had some mild dyspnea as well states she went to [facility] today and they ran a lot of tests and called her and told her D-dimer was elevated she denies any chest pain denies any cough denies any fevers. Review of Systems Const: Reports: fatigue and malaise Eyes: Denies: blurry vision or eye discomfort ENMT: Denies: throat pain or dental pain Card: Denies: chest pain Resp: Reports: dyspnea GI: Denies: abdominal pain, nausea, vomiting or diarrhea : Denies: dysuria Musc: Denies: neck pain or back pain Skin/Breast: Denies: rash Neuro: Denies: headache(s) Psych: Denies: depression Yaw/Lymph: Denies: easy bruising All/Imm: Denies: urticaria PFSH ED PFSH: Medical History Anemia Deep vein thrombosis of lower extremity Grade IV hemorrhoids History of deep vein thrombosis History of pulmonary embolus (PE) Primary osteoarthritis of right knee Pulmonary embolism Surgical History History of appendectomy History of carpal tunnel release (~2019) History of colonoscopy (~09/2020) History of hernia repair Right femoral History of lumpectomy of both breasts History of neck surgery History of total right knee replacement (TKR) S/P hemorrhoidectomy Family History Brother Pericardial effusion Mother Breast cancer Father Hodgkin's lymphoma Denies family history of Anesthesia complication Bleeding disorder Social History Smoking and tobacco status: current every day smoker cigarettes Alcohol intake: never Lives independently: Yes Marital status: Physical Exam Const: COMMON NORMALS: no acute distress, patient oriented x3 and healthy appearing HENMT: COMMON NORMALS: normocephalic and atraumatic HEAD & SCALP: normocephalic and atraumatic Eye: COMMON NORMALS: Equal, round and reactive pupils present and EOMs intact bilaterally PUPIL: Yes Equal, round and reactive pupils present Neck/C-Spine: COMMON NORMALS: full ROM and supple Chest: COMMONS NORMALS: normal inspection of the chest and normal palpation of entire chest wall Resp: COMMON NORMALS: normal respiratory effort, No retractions, No use of accessory muscles and clear to auscultation bilaterally AUSCULTATION: clear to auscultation bilaterally Cardio: COMMON NORMALS: regular rate, regular rhythm and No murmurs present (Cardio) RATE: regular rate RHYTHM: regular rhythm GI: COMMON NORMALS: Normal to inspection, nondistended, normoactive bowel sounds present, Soft to palpation, non-tender and no masses PALPATION: Yes Soft to palpation Extremity: COMMON NORMALS: normal to inspection and full ROM Neuro: COMMON NORMALS: patient oriented x3, moves all extremities and no focal motor deficits Psych: COMMON NORMALS: mental status grossly normal, Normal thought process present and cooperative THOUGHT PROCESS: Normal thought process present Skin: COMMON NORMALS: no rashes or lesions noted and no wounds GENERAL SKIN EXAM: no rashes or lesions noted Course Vital Signs: Vital signs: Vital Signs Temperature 97.9 F 09/30/22 20:07 Pulse Rate 61 09/30/22 22:16 Respiratory Rate 16 09/30/22 20:07 Blood Pressure 164/95 09/30/22 22:16 Pulse Oximetry 96 09/30/22 22:16 Oxygen Delivery Me thod 09/30/22 20:07 MDM - Recheck/Abnormal Lab/Rx Medical Decision Making Patient presents with multiple complaints along with dyspnea and lymphadenopathy blood work here is all normal CT of her chest shows no PE or no infection she is well-appearing here she is stable for discharge at this time is to follow-up PCP and return if worsening. Lab Data 09/30/22 17:20 09/30/22 17:20 Radiology Impressions Chest X-Ray 09/30/22 16:27 IMPRESSION: No acute findings. Chest CTA 09/30/22 20:36 IMPRESSION: 1. No pulmonary embolism or pneumonia. 2. Unchanged enlarged ascending and descending thoracic aorta. Laboratory Results WBC 7.1 10^3/uL (4.0-10.0) 09/30/22 17:20 RBC 4.72 10^6/uL (4.1-5.3) 09/30/22 17:20 Hgb 13.2 g/dL (11.5-15.3) 09/30/22 17:20 Hct 41.2 % (37.0-47.0) 09/30/22 17:20 MCV 87.3 fl (81-99) 09/30/22 17:20 MCH 28.0 pg (28.0-34.0) 09/30/22 17:20 MCHC 32.0 g/dL (30.0-36.0) 09/30/22 17:20 RDW 16.5 % (12.1-15.1) H 09/30/22 17:20 Plt Count 276 10^3/cmm (130-400) 09/30/22 17:20 MPV 9.9 fL (7.4-10.4) 09/30/22 17:20 Neut % (Auto) 60.8 % 09/30/22 17:20 Lymph % (Auto) 24.4 % 09/30/22 17:20 [place] % (Auto) 8.6 % 09/30/22 17:20 Eos % (Auto) 4.8 % 09/30/22 17:20 Baso % (Auto) 1.1 % 09/30/22 17:20 Neut # (Auto) 4.31 10^3/uL (1.8-7.7) 09/30/22 17:20 Lymph # (Auto) 1.7 10^3/uL (0.8-4.8) 09/30/22 17:20 [place] # (Auto) 0.6 10^3/uL (0.2-0.9) 09/30/22 17:20 Eos # (Auto) 0.3 10^3/uL (0.0-0.8) 09/30/22 17:20 Baso # (Auto) 0.1 10^3/uL (0.0-0.1) 09/30/22 17:20 Nucleated RBC % (auto) 0 % 09/30/22 17:20 Nucleated RBCs # 0.0 /100WBC 09/30/22 17:20 Sodium 144 mmol/L (136-145) 09/30/22 17:20 Potassium 3.5 mmol/L (3.5-5.1) 09/30/22 17:20 Chloride 107 mmol/L (98-107) 09/30/22 17:20 Carbon Dioxide 22 mmol/L (22-29) 09/30/22 17:20 Anion Gap 18.5 (5-19) 09/30/22 17:20 BUN 9 mg/dL (8-23) 09/30/22 17:20 Creatinine 0.8 mg/dL (0.5-0.9) 09/30/22 17:20 GFR Calculation 71.5 mL/min (90-130) L 09/30/22 17:20 Glucose 91 mg/dL (65-115) 09/30/22 17:20 Calculated Osmolality 296 mOsm/kg (285-295) H 09/30/22 17:20 Calcium 9.4 mg/dL (8.5-10.5) 09/30/22 17:20 Total Bilirubin 0.3 mg/dL (0.15-1.2) 09/30/22 17:20 AST 26 U/L (0-32) 09/30/22 17:20 ALT 17 U/L (0-33) 09/30/22 17:20 Alkaline Phosphatase 104 U/L (35-105) 09/30/22 17:20 Troponin T Baseline 12 ng/L (0-10) H 09/30/22 17:20 Troponin T 120 Minute 10.78 ng/L (0-10) H 09/30/22 19:06 Delta Troponin T -1.22 ABS# (0-10) L 09/30/22 19:06 Total Protein 7.5 g/dL (6.6-8.7) 09/30/22 17:20 Albumin 4.4 g/dL (3.5-5.2) 09/30/22 17:20 Globulin 3.1 g/dL (1.3-4.6) 09/30/22 17:20 TSH 1.25 uIU/mL (0.27-4.20) 09/30/22 19:06 Discharge Plan Discharge Patient Disposition: Home Clinical Impression: Acute dyspnea, Lymphadenopathy Condition: Stable Prescriptions: No Action pravastatin 20 mg tablet 20 mg PO BEDTIME@2200 Complete Multivitamin Tablet 1 tab PO DAILY@0500 felodipine 2.5 mg tablet extended release 24 hr 2.5 mg PO DAILY@0500 echinacea 380 mg capsule 380 mg PO DAILY Rx Instructions: administer with meals magnesium oxide 250 mg magnesium tablet 250 mg PO BID cholecalciferol (vitamin D3) 25 mcg (1,000 unit) capsule 25 mcg PO DAILY docusate sodium [Colace] 100 mg capsule 100 mg PO DAILY PRN Eliquis 2.5 mg tablet 2.5 mg PO BID Qty: 60 6RF triamcinolone acetonide 0.1 % ointment 1 applic topical BID Qty: 80 0RF Rx Instructions: apply to affected area no more than 2 weeks per month. not for face Vitamin C 1 tab PO BID@05,22 Probiotic 3 billion cell Capsule 3 mmu cells PO DAILY@0500 gabapentin 300 mg capsule 600 mg PO BID@0500,2200 Elderberry Gummy 1 cap PO BID@0500,2200 topiramate 50 mg tablet 150 mg PO DIRECTED Rx Instructions: 100mg in AM & 50mg in PM acetaminophen [Tylenol] 325 mg Tablet 325 - 650 mg PO Q6H PRN (Reason: PAIN/HEADACHE) fiber Tablet 1 tab PO EVERY OTHER DAY Discharge Orders: Discharge ED (Routine); Ordered 09/30/22 Ordered By: Julia Schwartz Referrals: Love Caal FNP [Primary Care Provider] - 1-3 days Discharge Diet: Advance as tolerated Discharge Activity: Resume usual activity Patient Instructions: Lymphadenopathy (ED), Dyspnea (ED) Coding Level of Care Code ED [employer] for [employer] Rust
[2022-09-30 21:11] LABS: Thyroid Stimulating Hormone 1.25 uIU/mL (0.27-4.20)
--- NOTE | 2022-09-30 21:12 | ECG_ITS ---
[facility] Test Date: 2022-09-30 Pat Name: Nicole Ashby Department: Room: Gender: Female [employer]er: : 1955 Requested By: Lissett Beck Order Number: [id number] Daiana MD: Rosana Das M.D. Measurements Intervals [place] Rate: 59 P: 89 OR: 202 QRS: 25 QRSD: 99 T: 51 QT: 418 QTc: 417 Interpretive Statements SINUS BRADYCARDIA NONSPECIFIC T-WAVE ABNORMALITY Compared to ECG 12/24/2020 16:26:51 No significant changes Electronically Signed On 10-01-2022 0:56:34 CDT by Rosana Das M.D. [id number]
[2022-09-30] MEDS: iohexol 350 mg/mL 500 mL Btl (per mL) IV (21:43)
[2022-09-30 22:16] VITALS: BP 164/95; PULSE 61; O2SAT 96
[2022-09-30 22:31] VITALS: BP 164/95; PULSE 66; RESP 16; O2SAT 99
== END 2022-09-30 22:34 | disposition home or self-care (01) ==
PROVIDERS: Physician Assistant; Emergency Provider Emergency Medicine; PCP Nurse Practitioner Family
DX: R59.1 Generalized enlarged lymph nodes (principal); R06.00 Dyspnea, unspecified; Z79.01 Long term (current) use of anticoagulants; F17.210 Nicotine dependence, cigarettes, uncomplicated
CPT/HCPCS: 36415; 71045; 71275; 80053; 84443; 84484; 85025; 93005; 99285; Q9967

== ENCOUNTER 2022-10-04 06:00 | Outpatient (RCR) | payer MEDICARE, SELFPAY | END 2022-10-14 23:59 | disposition home or self-care (01) | LOC: SPT 06:00 | PROVIDERS: PCP Nurse Practitioner Family; Visit Provider Neurological Surgery | DX: M47.812 Spondylosis without myelopathy or radiculopathy, cervical region (principal) | CPT/HCPCS: 97110 ==

== ENCOUNTER → 2023-01-02 10:32 | Outpatient (BNVA) | payer MEDICARE, SELFPAY | PROVIDERS: PCP Nurse Practitioner Family; Visit Provider Internal Medicine Cardiovascular Disease | DX: I31.9 Disease of pericardium, unspecified (principal); Z86.711 Personal history of pulmonary embolism; F17.210 Nicotine dependence, cigarettes, uncomplicated; Z79.01 Long term (current) use of anticoagulants | CPT/HCPCS: 99214 ==

== ENCOUNTER → 2023-01-29 09:56 | Outpatient (BNVA) | payer MEDICARE, SELFPAY | PROVIDERS: PCP Nurse Practitioner Family; Visit Provider Nurse Practitioner Family | DX: L84 Corns and callosities (principal); L81.4 Other melanin hyperpigmentation; D22.5 Melanocytic nevi of trunk; L85.3 Xerosis cutis; L57.8 Other skin changes due to chronic exposure to nonionizing radiation; L57.0 Actinic keratosis; L72.0 Epidermal cyst; Z85.828 Personal history of other malignant neoplasm of skin; Z72.0 Tobacco use | CPT/HCPCS: 17000; 17003; 99213 ==

== ENCOUNTER 2023-06-24 10:39 | Outpatient (CLI) | payer MEDICARE, SELFPAY ==
--- NOTE | 2023-06-24 10:46 | MM_ITS ---
WS: [id number] BILATERAL SCREENING DIGITAL TOMOSYNTHESIS MAMMOGRAM WITH CAD HISTORY: SCREEN COMPARISON: 06/23/2022 and 06/07/2021, 02/10/2019 Bilateral CC and MLO views with tomosynthesis and synthetic mammography submitted. Computer aided det ection analyzed. Breast composition: The breasts are heterogeneously dense, which may obscure small masses. No suspici ous masses, microcalcifications or architectural distortion. Benign calcifications in each breast. IMPRESSION: MM/[place] [id number] BI-RADS: 2-Benign FOLLOW UP: 1 Year Follow-up
== END 2023-06-24 10:40 | disposition home or self-care (01) ==
LOC: RAD 10:40
PROVIDERS: PCP Nurse Practitioner Family; Visit Provider Nurse Practitioner Family
DX: Z12.31 Encounter for screening mammogram for malignant neoplasm of breast (principal)
CPT/HCPCS: 77063; 77067

== ENCOUNTER 2023-10-16 13:50 | Outpatient (CLI) | payer MEDICARE, SELFPAY ==
--- NOTE | 2023-10-16 13:55 | XR_ITS ---
WS: [id number] SCREENING DEXA SCAN [employer] CLINICAL INFORMATION: POSTMENOPAUSAL COMPARISON: 2020 FINDINGS: The L1-L4 bone mineral density measures 1.396 g/cm2. This corresponds to a T score score of 1.8 and Z score of 3.1. Left femoral neck bone mineral density measures 0.902 g/cm2. This corresponds to a T score of -0.8 an d Z score of 0.3. Right femoral neck bone mineral density measures 0.894 g/cm2. This corresponds to a T score -0.9of an d Z score of 0.2. Mean femoral neck bone mineral density measures 0.898 g/cm2. This corresponds to a T score of -0.9 an d Z score of 0.3. IMPRESSION: Normal bone mineralization lumbar spine and femoral necks. Patient's FRAX calculated 10 year probability for major osteoporotic fracture is 9.1% and osteoporoti c hip fracture is 1.7%. Bone mineral density lumbar spine decreased -0.1% Bone mineral density femoral necks increased 0.1%
== END 2023-10-16 13:51 | disposition home or self-care (01) ==
LOC: RAD 13:52
PROVIDERS: PCP Nurse Practitioner Family; Visit Provider Nurse Practitioner Family
DX: Z78.0 Asymptomatic menopausal state (principal)
CPT/HCPCS: 77080

== ENCOUNTER → 2024-02-10 13:26 | Outpatient (BNVA) | payer MEDICARE, SELFPAY | PROVIDERS: PCP Nurse Practitioner Family; Visit Provider Internal Medicine Cardiovascular Disease | DX: Z86.711 Personal history of pulmonary embolism (principal); Z86.718 Personal history of other venous thrombosis and embolism; Z79.01 Long term (current) use of anticoagulants; F17.210 Nicotine dependence, cigarettes, uncomplicated | CPT/HCPCS: 99213 ==

== ENCOUNTER 2024-06-27 12:31 | Outpatient (CLI) | payer MEDICARE, SELFPAY ==
--- NOTE | 2024-06-27 12:32 | MM_ITS ---
WS: [id number] BILATERAL 3D TOMOSYNTHESIS DIGITAL SCREENING MAMMOGRAPHY WITH CAD CLINICAL INFORMATION: SCREENING HISTORY: Screening mammogram. No current complaints. COMPARISON: 2022 TECHNIQUE: Bilateral CC and MLO views. FINDINGS: The breasts are composed of heterogeneous fibroglandular density tissue, which can limit the detectio n of small underlying mass lesions. No suspicious mass, asymmetry, calcifications, or architectural d istortion. No evidence of malignancy. Benign calcifications LEFT breast. Vascular calcification. MM/MM [facility] tomosynthesis [id number] IMPRESSION: DENSITY: The breasts are heterogeneously dense, which may obscure small masses. BI-RADS: 2 - Benign FOLLOW UP: 1 Year Follow-up Recommend return to annual screening mammography.
== END 2024-06-27 12:32 | disposition home or self-care (01) ==
LOC: RAD 12:32
PROVIDERS: PCP Nurse Practitioner Family; Visit Provider Nurse Practitioner Family
DX: Z12.31 Encounter for screening mammogram for malignant neoplasm of breast (principal); R92.333 Mammographic heterogeneous density, bilateral breasts; R92.1 Mammographic calcification found on diagnostic imaging of breast
CPT/HCPCS: 77063; 77067

== ENCOUNTER 2024-08-21 06:14 | Emergency (ER) | payer MEDICARE, SELFPAY ==
[2024-08-21 06:32] VITALS: BP 154/93; PULSE 84; RESP 16; TEMP 36.4; O2SAT 95; BMI 30.1
--- NOTE | 2024-08-21 06:40 | W.ED.GENADLT ---
HPI - General Adult General: Chief complaint: Extremity Injury, Upper Stated complaint: pain in left arm Time Seen by Provider: 08/21/24 06:33 History of Present Illness: 69-year-old female presents with left arm pain. Patient reports that she awoke with pain in her left arm around 2 in the morning. Around 3 she took tramadol and muscle relaxant. Patient denies any known injury. She does have a chronic remote shoulder injury. Pain is mainly in her left forearm. She has full but painful range of motion. Patient reports chronic back and neck issues. Patient does report that she sleeps on her left arm at night due to her back issues. Associated symptoms: Deny chest pain, dyspnea, nausea, palpitations or vomiting Related Data Home Medications ?Medication ?Instructions ?Recorded ?Confirmed multivitamin,rr-onaf-kuyppxon 1 tab PO DAILY@0500 02/24/20 02/10/24 (Complete Multivitamin tablet) lactobacillus combination no.4 3 3 mmu cells PO DAILY@0500 04/23/20 02/10/24 billion cell capsule (Probiotic) Elderberry Gummy 1 cap PO BID@0500,2200 08/06/20 02/10/24 gabapentin 300 mg capsule 600 mg PO BID@0500,2200 08/06/20 02/10/24 felodipine 2.5 mg tablet,extended 2.5 mg PO DAILY@0500 08/15/20 02/10/24 release 24 hr acetaminophen 325 mg tablet 325 - 650 mg PO Q6H PRN 09/22/20 02/10/24 (Tylenol) PAIN/HEADACHE echinacea 380 mg capsule 380 mg PO DAILY 04/12/21 02/10/24 cholecalciferol (vitamin D3) 25 25 mcg PO DAILY 11/01/21 02/10/24 mcg (1,000 unit) capsule docusate sodium 100 mg capsule 100 mg PO DAILY PRN 11/01/21 02/10/24 (Colace) magnesium oxide 250 mg PO BID 11/01/21 02/10/24 amitriptyline 50 mg tablet 50 mg PO DAILY 02/10/24 02/10/24 rosuvastatin 10 mg tablet 10 mg PO DAILY 02/10/24 02/10/24 Previous Rx's ?Medication ?Instructions ?Recorded apixaban 2.5 mg tablet (Eliquis) 2.5 mg PO BID #60 tabs 11/01/21 hydrocodone 5 mg-acetaminophen 325 1 tab PO Q8H PRN pain #7 tabs 08/21/24 mg tablet Allergies Allergy/AdvReac Type Severity Reaction Status Date / Time enalapril Allergy Severe ALGY-Swell Verified 02/10/24 13:39 Lip/Tongue/Throat adhesive Allergy rash Verified 02/10/24 13:39 amoxicillin (From Augmentin) Allergy gi upset Verified 02/10/24 13:39 clavulanic acid (From Allergy gi upset Verified 02/10/24 13:39 Augmentin) perfume Allergy ALGY-Hives Verified 02/10/24 13:39 Review of Systems Const: Denies: fever(s) or chills Card: Denies: chest pain or palpitations Resp: Denies: dyspnea or productive cough GI: Denies: abdominal pain, nausea or vomiting Musc: Reports: extremity pain; Denies: extremity swelling, joint swelling, joint redness or joint warmth PFSH ED PFSH: Medical History History of pulmonary embolus (PE) History of deep vein thrombosis Anemia Grade IV hemorrhoids Deep vein thrombosis of lower extremity Pulmonary embolism Primary osteoarthritis of right knee Surgical History S/P hemorrhoidectomy History of hernia repair Right femoral History of appendectomy History of neck surgery History of lumpectomy of both breasts History of colonoscopy (~09/2020) History of carpal tunnel release (~2019) History of total right knee replacement (TKR) Family History Brother Pericardial effusion Mother Breast cancer Father Hodgkin's lymphoma Denies family history of Anesthesia complication Bleeding disorder Social History Smoking and tobacco/nicotine status: current every day tobacco/nicotine user cigarettes Alcohol intake: never Substance/Drug Use: never Lives independently: Yes Marital status: Physical Exam Const: COMMON NORMALS: no acute distress, patient oriented x3 and alert Resp: COMMON NORMALS: normal respiratory effort, No use of accessory muscles and clear to auscultation bilaterally AUSCULTATION: clear to auscultation bilaterally Cardio: COMMON NORMALS: regular rate and regular rhythm RATE: regular rate RHYTHM: regular rhythm Extremity: NARRATIVE EXTREMITY EXAM: No obvious injury noted on exam. She has full range of motion at her baseline does complain of pain throughout the whole left arm. No swelling or decreased pulse. RIGHT UPPER EXTREMITY: Yes lower arm (Painfull range of motion especially with pronation of the hand.) Right lower arm: Yes neurovascular exam Neuro: COMMON NORMALS: patient oriented x3 SENSORIUM/ORIENTATION: Yes alert Course Vital Signs: Vital signs: Vital Signs Temperature 97.5 F L 08/21/24 06:32 Pulse Rate 48 L 08/21/24 07:37 Respiratory Rate 16 08/21/24 06:32 Blood Pressure 94/49 08/21/24 07:37 Pulse Oximetry 95 08/21/24 07:37 Oxygen Delivery Me thod Room Air 08/21/24 06:32 MDM - General Adult Medical Decision Making Patient's symptoms seem musculoskeletal in nature. There is no swelling or signs of a clot at this time to indicate an ultrasound. I will start her out with supportive care. There is no indication for imaging as she has no injury or deformity. No radiology studies performed this visit Discharge Plan Discharge Patient Disposition: Home Clinical Impression: Forearm sprain, Pain of left upper extremity Condition: Stable Prescriptions: New hydrocodone-acetaminophen 5-325 mg tablet 1 tab PO Q8H PRN (Reason: pain) Qty: 7 0RF No Action Complete Multivitamin Tablet 1 tab PO DAILY@0500 felodipine 2.5 mg tablet extended release 24 hr 2.5 mg PO DAILY@0500 echinacea 380 mg capsule 380 mg PO DAILY Rx Instructions: administer with meals magnesium oxide 250 mg magnesium tablet 250 mg PO BID cholecalciferol (vitamin D3) 25 mcg (1,000 unit) capsule 25 mcg PO DAILY docusate sodium [Colace] 100 mg capsule 100 mg PO DAILY PRN Eliquis 2.5 mg tablet 2.5 mg PO BID Qty: 60 6RF amitriptyline 50 mg tablet 50 mg PO DAILY rosuvastatin 10 mg tablet 10 mg PO DAILY Probiotic 3 billion cell Capsule 3 mmu cells PO DAILY@0500 gabapentin 300 mg capsule 600 mg PO BID@0500,2200 Elderberry Gummy 1 cap PO BID@0500,2200 acetaminophen [Tylenol] 325 mg Tablet 325 - 650 mg PO Q6H PRN (Reason: PAIN/HEADACHE) Discharge Orders: Discharge ED (Routine); Ordered 08/21/24 Ordered By: Aidan Pereira Referrals: Love Caal FNP [Primary Care Provider] - Discharge Diet: Advance as tolerated Discharge Activity: Increase activity as tolerated Patient Instructions: Sprain (ED), Opioid Safety, Pain Management Activity Restrictions/Additional Instructions: Voltaren/diclofenac cream or gel use as directed on package. Gentle stretching. Please follow-up with your primary care provider in a couple days if symptoms or not improving for recheck. You may use ice 10 to 15 minutes at a time 3-4 times daily for the first 24 hours along with warm moist heat 10 to 15 minutes at a time 3-4 times daily please alternate for the first 24 hours then just warm moist heat. May also use 4% topical lidocaine with menthol cream gel or patches uses as directed on package. Print Language: Telugu Coding Level of Care Code ED [employer] for [employer]
[2024-08-21] MEDS: ketorolac 30 mg/mL INJ 15 MG IM (07:24)
[2024-08-21 07:37] VITALS: BP 94/49; PULSE 48; O2SAT 95
== END 2024-08-21 07:42 | disposition home or self-care (01) ==
PROVIDERS: Emergency Provider Student in an Organized Health Care Education/Training Program; PCP Nurse Practitioner Family
DX: S56.912A Strain of unspecified muscles, fascia and tendons at forearm level, left arm, initial encounter (principal); M79.622 Pain in left upper arm; Z79.01 Long term (current) use of anticoagulants; F17.210 Nicotine dependence, cigarettes, uncomplicated; X58.XXXA Exposure to other specified factors, initial encounter
CPT/HCPCS: 96372; 99284; J1885

== ENCOUNTER 2024-10-03 14:04 | Outpatient (CLI) | payer MEDICARE, SELFPAY ==
--- NOTE | 2024-10-03 14:07 | CT_ITS ---
WS: [id number] LDCT LUNG CANCER SCREENING HISTORY: NICOTINE DEPENDENCE,CIGARETTES TECHNIQUE: Axial imaging performed from the apices to 1 cm below the costophrenic angles. Coronal and sagittal reformats are submitted with axial MIP series. All CT scans at [facility] use at least one of these dose optimization techniques: automated exposure control; mA and/or kV adjustment per patient size (includes targeted exams where dose is matched to clinical indication); or iterative reconstruction. DLP: 62.10 mGy.cm DIvol: Mean CTDIvol: 1.30 (mGy) COMPARISON: 09/30/2022 Diagnostic quality: Satisfactory Lungs: No pulmonary mass or nodule. No endobronchial lesions. No pneumonia. Linear scar at the LEFT lung base. Heart: Normal size heart with no pericardial effusion.. Other findings: Mild atherosclerosis aorta. Thoracic aorta is mildly ectatic. Pulmonary artery size is normal. No mediastinal or hilar adenopathy. No adrenal mass. Mild increase in thoracic kyphosis. Moderate spondylosis. CT/CT lung screening [id number] IMPRESSION: LUNG-RADS: 1-Negative FOLLOW UP: 12 Month: Continue annual screening with LDCT OTHER FINDINGS (S MODIFIER): None.
== END 2024-10-03 14:05 | disposition home or self-care (01) ==
PROVIDERS: PCP Nurse Practitioner Family; Visit Provider Nurse Practitioner Family
DX: Z12.2 Encounter for screening for malignant neoplasm of respiratory organs (principal); F17.210 Nicotine dependence, cigarettes, uncomplicated; J98.4 Other disorders of lung; I70.0 Atherosclerosis of aorta; I77.810 Thoracic aortic ectasia; M40.294 Other kyphosis, thoracic region; M47.9 Spondylosis, unspecified
CPT/HCPCS: 71271

== ENCOUNTER → 2025-02-28 14:49 | Outpatient (BNVA) | payer MEDICARE, SELFPAY | PROVIDERS: PCP Nurse Practitioner Family; Visit Provider Internal Medicine | DX: Z86.711 Personal history of pulmonary embolism (principal); Z86.718 Personal history of other venous thrombosis and embolism; Z79.01 Long term (current) use of anticoagulants; F17.210 Nicotine dependence, cigarettes, uncomplicated | CPT/HCPCS: 99214 ==

== ENCOUNTER → 2025-03-08 14:19 | Outpatient (BNVA) | payer MEDICARE, SELFPAY | PROVIDERS: PCP Nurse Practitioner Family; Visit Provider Student in an Organized Health Care Education/Training Program | DX: M16.11 Unilateral primary osteoarthritis, right hip (principal) | CPT/HCPCS: 99204 ==

== ENCOUNTER → 2025-03-24 10:21 | Outpatient (BNVA) | payer MEDICARE, SELFPAY | PROVIDERS: PCP Nurse Practitioner Family; Visit Provider Student in an Organized Health Care Education/Training Program | DX: M16.11 Unilateral primary osteoarthritis, right hip (principal); Z71.89 Other specified counseling | CPT/HCPCS: 20610; 77002; J3301; J9999 ==

== ENCOUNTER → 2025-05-16 10:00 | Outpatient (BNVA) | payer MEDICARE, SELFPAY | PROVIDERS: PCP Nurse Practitioner Family; Visit Provider Student in an Organized Health Care Education/Training Program | DX: M25.562 Pain in left knee (principal); M25.561 Pain in right knee; M17.12 Unilateral primary osteoarthritis, left knee; M16.0 Bilateral primary osteoarthritis of hip | CPT/HCPCS: 73523; 73560; 73565 ==

== ENCOUNTER 2025-05-16 15:18 | Outpatient (CLI) | payer MEDICARE, SELFPAY | END 2025-05-16 15:19 | disposition home or self-care (01) | LOC: SPT 15:18 | PROVIDERS: PCP Nurse Practitioner Family; Visit Provider Student in an Organized Health Care Education/Training Program | DX: Z46.89 Encounter for fitting and adjustment of other specified devices (principal); M25.562 Pain in left knee | CPT/HCPCS: L1851 ==

== ENCOUNTER → 2025-06-21 10:08 | Outpatient (BNVA) | payer MEDICARE, SELFPAY | PROVIDERS: PCP Nurse Practitioner Family; Visit Provider Student in an Organized Health Care Education/Training Program | DX: M16.0 Bilateral primary osteoarthritis of hip (principal) | CPT/HCPCS: 99213 ==